=== PATIENT | female | born 1935 | race Hispanic/Latino ===

== ENCOUNTER 2018-10-05 13:14 | Emergency (ER) | payer MEDICARE ==
[~2018-10-05] VITALS: Ht 152.4 cm; Wt 77.1 kg
--- OUTSIDE RECORDS SUMMARY | 2018-10-05 13:18 | XMS REPORT | Clinical Summary ---
Author Author MARIA G [facility] Address Unknown Phone Unavailable Care Team Providers Care Trouble Lineman Name Role Phone Velia Weldon MD PCP Unavailable Allergies Comments Active Allergy Reactions Severity Noted Date Renal insufficiency Walt Inhibitors 08/16/2018 Hyponatremia [id number]-[id number] 08/16/2018 iazid Medications End Date Status Medication Sig Dispensed Refills Start Date Active levothyroxine (SYNTHROID, Take 88 mcg 0 LEVOTHROID) 50 MCG tablet by mouth 6 Every morning on an empty stomach TAKE 1 TABLET BY MOUTH EVERY DAY. 08/17/2019 Active atorvastatin (LIPITOR) 10 Take 1 tablet 0 MG tablet (10 mg total) 9 by mouth daily. 08/16/2019 Active cloNIDine HCl (CATAPRES) Take 1 tablet 0 0.1 MG tablet (0.1 mg 9 total) by mouth every 6 (six) hours as needed (for sbp greater than 160). 08/17/2019 Active clopidogrel (PLAVIX) 75 Take 1 tablet 30 tablet 0 mg tablet (75 mg total) 9 by mouth daily. 08/16/2019 Active ferrous sulfate 325 (65 Take 1 tablet 60 tablet 0 FE) MG tablet (325 mg 9 total) by mouth 2 (two) times daily. 08/16/2019 Active hydrALAZINE (APRESOLINE) Take 1 tablet 90 tablet 0 25 MG tablet (25 mg total) 9 by mouth every 8 (eight) hours. 08/16/2019 Active insulin lispro (HUMALOG) Inject 0-8 10 mL 0 100 unit/mL injection Units 9 subcutaneousl y as needed (High blood sugar). 08/16/2019 Active metoprolol (LOPRESSOR) 50 Take 1 tablet 60 tablet 0 MG tablet (50 mg total) 9 by mouth 2 (two) times daily. Active melatonin 5 mg Tab tablet Take 1 tablet 0 (5 mg total) 9 by mouth every night as needed. 08/16/2019 Active NIFEdipine (ADALAT CC) 30 Take 1 tablet 60 tablet 0 MG 24 hr tablet (30 mg total) 9 by mouth 2 (two) times daily. 08/16/2018 Discontinued amLODIPine (NORVASC) 5 MG TAKE 1 TABLET 0 tablet BY MOUTH ONCE 6 DAILY. 08/16/2018 Discontinued calcium carbonate Take by mouth 0 (OS-GORAN) 600 mg (1,500 daily . mg) Tab 08/16/2018 Discontinued cholecalciferol, vitamin Take 2,000 0 D3, 2,000 unit Tab Units by mouth daily . 07/13/2018 Discontinued diclofenac 1 % Gel Upper 0 extremities: 5 Apply 2 g of 1% gel to affected area 4 times daily (maximum: 8 g per joint per day). 08/16/2018 Discontinued glipiZIDE (GLUCOTROL) 5 Take 10 mg by 0 MG tablet mouth 2 (two) 5 times daily before meals . 08/16/2018 Discontinued hydrochlorothiazide TAKE 1 TABLET 0 (HYDRODIURIL) 25 MG BY MOUTH 6 tablet DAILY. 08/16/2018 Discontinued metFORMIN (GLUCOPHAGE) Take 500 mg 0 1000 MG tablet by mouth 2 5 (two) times daily with breakfast and dinner . 08/16/2018 Discontinued omega-3 fatty acids-fish Take 1,000 mg 0 oil 340-1,000 mg Cap per by mouth. capsule 07/13/2018 Discontinued omeprazole (PRILOSEC) 20 Take 20 mg by 0 MG capsule mouth. 6 08/16/2018 Discontinued valsartan (DIOVAN) 320 MG TAKE 1 TABLET 0 tablet BY MOUTH 5 EVERY DAY. 08/16/2018 Discontinued acetaminophen-codeine Take 1 tablet 0 (TYLENOL #3) 300-30 mg by mouth per tablet every 4 (four) hours as needed for Pain. 08/16/2018 Discontinued baclofen (LIORESAL) 10 MG Take 10 mg by 0 tablet mouth nightly . 08/16/2018 Discontinued metoprolol (TOPROL-XL) 25 Take 75 mg by 0 MG 24 hr tablet mouth 2 (two) times daily . 08/16/2018 Discontinued gabapentin (NEURONTIN) Take 200 mg 0 100 MG capsule by mouth 3 (three) times daily . 06/15/2018 traMADol (ULTRAM) 50 mg Take 1 tablet 20 tablet 0 tablet (50 mg total) 8 by mouth every 6 (six) hours as needed for up to 10 days. Max Daily Amount: 200 mg 06/12/2018 methylPREDNISolone follow 1 Package 0 (MEDROL DOSEPACK) 4 mg package 8 tablet directions. 07/26/2018 Discontinued omeprazole (PRILOSEC) 20 Take 20 mg by 0 MG capsule mouth daily. Active Problems Problem Noted Date Metabolic encephalopathy 08/03/2018 CVA (cerebral vascular accident) 07/22/2018 Hypertensive urgency 07/22/2018 Physical deconditioning 07/22/2018 Nausea and vomiting 07/22/2018 Impaired mobility and ADLs 07/18/2018 Impaired gait 07/18/2018 Essential hypertension 07/13/2018 Mixed hyperlipidemia 07/13/2018 Acute encephalopathy 07/13/2018 Acute ischemic stroke 07/12/2018 Encounters Care Team Description Date Type Specialty 08/07/2018 Travel Ladarius Leggett MD Rodriguez, Hector B., MD Essential hypertension (Primary Dx); Acute encephalopathy; Acute ischemic stroke (HCC); Metabolic encephalopathy; Mixed hyperlipidemia; Impaired mobility and ADLs; Impaired gait; Hypertensive urgency 08/03/2018 [facility] General Internal Medicine - Encounter 08/16/2018 Emre Cunningham MD Acute ischemic stroke (HCC); Essential hypertension; Impaired gait; Impaired mobility and ADLs; Mixed hyperlipidemia; Nausea and vomiting, intractability of vomiting not specified, unspecified vomiting type; Hemorrhagic stroke (HCC); Physical deconditioning; Diarrhea, unspecified type; Fall, initial encounter; Hematoma 07/25/2018 [facility] Physical Medicine and - Encounter Rehabilitation 08/03/2018 07/24/2018 Travel Eduardo Moctezuma MD Cerebrovascular accident (CVA), unspecified mechanism (HCC) 07/22/2018 [facility] General Internal Medicine - Encounter 07/25/2018 07/19/2018 Travel Emre Cunningham MD Acute ischemic stroke (HCC); Essential hypertension; Impaired gait; Impaired mobility and ADLs; Mixed hyperlipidemia; Hemorrhagic stroke (HCC) 07/18/2018 Hospital Physical Medicine and - Encounter Rehabilitation 07/22/2018 07/13/2018 Travel Albaro Tracey MD [place], MD Oleksandr Hinton, Ladarius Gill MD Cerebrovascular accident (CVA), unspecified mechanism (HCC) (Primary Dx); Somnolence; Essential hypertension; Hx of diabetes mellitus; Acute ischemic stroke (HCC); Acute encephalopathy; Mixed hyperlipidemia 07/12/2018 Hospital General Internal Medicine - Encounter 07/18/2018 07/12/2018 Orders Only General Internal Medicine 07/12/2018 Travel Kim Rios Acute midline low back pain with left-sided sciatica (Primary Dx); Pain in joint involving left pelvic region and thigh 06/05/2018 Emergency Emergency Medicine 06/05/2018 Travel after 10/04/2017 Social History Date Tobacco Use Types Packs/Day Years Used Never Smoker Smokeless Tobacco: Never Used Alcohol Use Drinks/Week oz/Week Comments No Sex Assigned at Date Recorded Not on file Industry Job Start Date Occupation Not on file Not on file Not on file Travel End Travel History Travel Start No recent travel history available. Last Filed Vital Signs Time Taken Vital Sign Reading 08/16/2018 12:00 PM [employer] Blood Pressure 138/63 08/16/2018 12:00 PM [employer] Pulse 71 08/16/2018 12:00 PM [employer] Temperature 35.7 C (96.3 F) 08/16/2018 12:00 PM [employer] Respiratory Rate 16 08/16/2018 12:00 PM [employer] Oxygen Saturation 98% 08/03/2018 5:29 PM [employer] Inhaled Oxygen 21% Concentration 08/15/2018 2:00 PM [employer] Weight 62.4 kg (137 lb 9.6 oz) 08/11/2018 6:00 AM [employer] Height 152.4 cm (5') 08/15/2018 2:00 PM [employer] Body Mass Index 26.87 Plan of Treatment Not on file Procedures Comments Procedure Name Priority Date/Time Associated Diagnosis RHYTHM STRIP - SCAN 09/05/2018 1:50 PM [employer] POCT-GLUCOSE METER Routine 08/16/2018 12:03 PM [employer] POCT-GLUCOSE METER Routine 08/16/2018 7:47 AM [employer] HEMOGLOBIN AND HEMATOCRIT Routine 08/16/2018 4:42 AM [employer] BASIC METABOLIC PANEL (7) Routine 08/16/2018 4:42 AM [employer] MAGNESIUM Routine 08/16/2018 4:42 AM [employer] POCT-GLUCOSE METER Routine 08/15/2018 8:46 PM [employer] POCT-GLUCOSE METER Routine 08/15/2018 5:39 PM [employer] POCT-GLUCOSE METER Routine 08/15/2018 11:47 AM [employer] POCT-GLUCOSE METER Routine 08/15/2018 7:50 AM [employer] HEMOGLOBIN AND HEMATOCRIT Routine 08/15/2018 4:45 AM [employer] BASIC METABOLIC PANEL (7) Routine 08/15/2018 4:45 AM [employer] MAGNESIUM Routine 08/15/2018 4:45 AM [employer] POCT-GLUCOSE METER Routine 08/14/2018 9:09 PM [employer] POCT-GLUCOSE METER Routine 08/14/2018 4:56 PM [employer] POCT-GLUCOSE METER Routine 08/14/2018 11:52 AM [employer] POCT-GLUCOSE METER Routine 08/14/2018 7:53 AM [employer] HEMOGLOBIN AND HEMATOCRIT Routine 08/14/2018 5:43 AM [employer] BASIC METABOLIC PANEL (7) Routine 08/14/2018 5:43 AM [employer] MAGNESIUM Routine 08/14/2018 5:43 AM [employer] POCT-GLUCOSE METER Routine 08/13/2018 9:15 PM [employer] POCT-GLUCOSE METER Routine 08/13/2018 5:13 PM [employer] POCT-GLUCOSE METER Routine 08/13/2018 12:50 PM [employer] POCT-GLUCOSE METER Routine 08/13/2018 7:12 AM [employer] HEMOGLOBIN AND HEMATOCRIT Routine 08/13/2018 5:47 AM [employer] BASIC METABOLIC PANEL (7) Routine 08/13/2018 5:47 AM [employer] MAGNESIUM Routine 08/13/2018 5:47 AM [employer] POCT-GLUCOSE METER Routine 08/12/2018 9:[address] [address] LOWER EXTREMITY Routine 08/12/2018 WITHOUT CONTRAST LEFT 5:55 PM [employer] POCT-GLUCOSE METER Routine 08/12/2018 5:08 PM [employer] POCT-GLUCOSE METER Routine 08/12/2018 12:27 PM [employer] POCT-GLUCOSE METER Routine 08/12/2018 7:16 AM [employer] BASIC METABOLIC PANEL (7) Routine 08/12/2018 3:35 AM [employer] MAGNESIUM Routine 08/12/2018 3:35 AM [employer] POCT-GLUCOSE METER Routine 08/11/2018 9:44 PM [employer] POCT-GLUCOSE METER Routine 08/11/2018 5:16 PM [employer] BASIC METABOLIC PANEL (7) STAT 08/11/2018 3:40 PM [employer] POCT-GLUCOSE METER Routine 08/11/2018 11:49 AM [employer] POCT-GLUCOSE METER Routine 08/11/2018 7:45 AM [employer] CBC W/PLT COUNT & AUTO Routine 08/11/2018 DIFFERENTIAL 4:01 AM [employer] BASIC METABOLIC PANEL (7) Routine 08/11/2018 4:01 AM [employer] CBC W/PLT COUNT & AUTO Routine 08/11/2018 DIFFERENTIAL 4:01 AM [employer] POCT-GLUCOSE METER Routine 08/10/2018 10:27 PM [employer] POCT-GLUCOSE METER Routine 08/10/2018 4:58 PM [employer] BASIC METABOLIC PANEL (7) STAT 08/10/2018 3:18 PM [employer] POCT-GLUCOSE METER Routine 08/10/2018 1:10 PM [employer] POCT-GLUCOSE METER Routine 08/10/2018 7:49 AM [employer] CBC W/PLT COUNT & AUTO Routine 08/10/2018 DIFFERENTIAL 4:06 AM [employer] MAGNESIUM Routine 08/10/2018 4:06 AM [employer] BASIC METABOLIC PANEL (7) Routine 08/10/2018 4:06 AM [employer] CBC W/PLT COUNT & AUTO Routine 08/10/2018 DIFFERENTIAL 4:06 AM [employer] POCT-GLUCOSE METER Routine 08/09/2018 9:26 PM [employer] BASIC METABOLIC PANEL (7) STAT 08/09/2018 5:29 PM [employer] POCT-GLUCOSE METER Routine 08/09/2018 4:57 PM [employer] POCT-GLUCOSE METER Routine 08/09/2018 12:37 PM [employer] POCT-GLUCOSE METER Routine 08/09/2018 7:44 AM [employer] CBC W/PLT COUNT & AUTO Routine 08/09/2018 DIFFERENTIAL 5:30 AM [employer] MAGNESIUM Routine 08/09/2018 5:30 AM [employer] BASIC METABOLIC PANEL (7) Routine 08/09/2018 5:30 AM [employer] CBC W/PLT COUNT & AUTO Routine 08/09/2018 DIFFERENTIAL 5:30 AM [employer] POCT-GLUCOSE METER Routine 08/08/2018 9:22 PM [employer] POCT-GLUCOSE METER Routine 08/08/2018 4:05 PM [employer] POCT-GLUCOSE METER Routine 08/08/2018 1:15 PM [employer] XR ESOPH SWALLOW FUNCTION Routine 08/08/2018 W/CINE VIDEO 9:50 AM [employer] POCT-GLUCOSE METER Routine 08/08/2018 5:46 AM [employer] BASIC METABOLIC PANEL (7) Routine 08/08/2018 5:22 AM [employer] MAGNESIUM Routine 08/08/2018 5:22 AM [employer] POCT-GLUCOSE METER Routine 08/07/2018 8:40 PM [employer] POCT-GLUCOSE METER Routine 08/07/2018 6:15 PM [employer] POCT-GLUCOSE METER Routine 08/07/2018 12:04 PM [employer] POCT-GLUCOSE METER Routine 08/07/2018 5:44 AM [employer] BASIC METABOLIC PANEL (7) Routine 08/07/2018 4:07 AM [employer] MAGNESIUM Routine 08/07/2018 4:07 AM [employer] POCT-GLUCOSE METER Routine 08/07/2018 4:01 AM [employer] POCT-GLUCOSE METER Routine 08/06/2018 6:33 PM [employer] POCT-GLUCOSE METER Routine 08/06/2018 1:53 PM [employer] POCT-GLUCOSE METER Routine 08/06/2018 6:51 AM [employer] CBC W/PLT COUNT & AUTO Routine 08/06/2018 DIFFERENTIAL 4:17 AM [employer] BASIC METABOLIC PANEL (7) Routine 08/06/2018 4:17 AM [employer] MAGNESIUM Routine 08/06/2018 4:17 AM [employer] COMPREHENSIVE METABOLIC Routine 08/06/2018 PANEL 4:17 AM [employer] CBC W/PLT COUNT & AUTO Routine 08/06/2018 DIFFERENTIAL 4:17 AM [employer] POCT-GLUCOSE METER Routine 08/06/2018 12:23 AM [employer] VENOUS DOPPLER ARM, LEFT Routine 08/05/2018 8:29 PM [employer] POCT-GLUCOSE METER Routine 08/05/2018 5:27 PM [employer] POCT-GLUCOSE METER Routine 08/05/2018 12:18 PM [employer] PT/APTT STAT 08/05/2018 12:05 PM [employer] HEMOGLOBIN AND HEMATOCRIT STAT 08/05/2018 12:05 PM [employer] BASIC METABOLIC PANEL (7) STAT 08/05/2018 12:05 PM [employer] POCT-GLUCOSE METER Routine 08/05/2018 6:52 AM [employer] CBC W/PLT COUNT & AUTO Routine 08/05/2018 DIFFERENTIAL 4:47 AM [employer] CBC W/PLT COUNT & AUTO Routine 08/05/2018 DIFFERENTIAL 4:47 AM [employer] BASIC METABOLIC PANEL (7) Routine 08/05/2018 4:47 AM [employer] MAGNESIUM Routine 08/05/2018 4:47 AM [employer] COMPREHENSIVE METABOLIC Routine 08/05/2018 PANEL 4:47 AM [employer] CBC W/PLT COUNT & AUTO Routine 08/05/2018 DIFFERENTIAL 3:45 AM [employer] CBC W/PLT COUNT & AUTO Routine 08/05/2018 DIFFERENTIAL 3:45 AM [employer] POCT-GLUCOSE METER Routine 08/05/2018 12:35 AM [employer] POCT-GLUCOSE METER Routine 08/04/2018 5:16 PM [employer] BASIC METABOLIC PANEL (7) STAT 08/04/2018 2:10 PM [employer] RHYTHM STRIP - SCAN 08/04/2018 1:10 PM [employer] POCT-GLUCOSE METER Routine 08/04/2018 12:53 PM [employer] XR ABDOMEN 1 VIEW Routine 08/04/2018 12:24 PM [employer] POCT-GLUCOSE METER Routine 08/04/2018 6:25 AM [employer] CBC W/PLT COUNT & AUTO Routine 08/04/2018 DIFFERENTIAL 4:08 AM [employer] COMPREHENSIVE METABOLIC Routine 08/04/2018 PANEL 4:08 AM [employer] CBC W/PLT COUNT & AUTO Routine 08/04/2018 DIFFERENTIAL 4:08 AM [employer] FERRITIN Routine 08/04/2018 4:08 AM [employer] IRON, TIBC, % SAT. Routine 08/04/2018 (WITHOUT FERRITIN) 4:08 AM [employer] CORTISOL Routine 08/04/2018 4:08 AM [employer] TSH/FREE T4 IF INDICATED Routine 08/04/2018 4:08 AM [employer] POCT-GLUCOSE METER Routine 08/04/2018 12:08 AM [employer] URINALYSIS W/ REFLEX Routine 08/03/2018 URINE CULTURE 9:08 PM [employer] BLOOD CULTURE Routine 08/03/2018 8:44 PM [employer] XR CHEST 1 VIEW STAT 08/03/2018 PORTABLE/BEDSIDE 8:24 PM [employer] POCT-HEMOGLOBIN Routine 08/03/2018 6:23 PM [employer] POCT-HEMATOCRIT Routine 08/03/2018 6:23 PM [employer] POCT-CALCIUM IONIZED Routine 08/03/2018 6:23 PM [employer] POCT-GLUCOSE Routine 08/03/2018 6:23 PM [employer] POCT-POTASSIUM Routine 08/03/2018 6:23 PM [employer] POCT-SODIUM Routine 08/03/2018 6:23 PM [employer] POCT-BLOOD GASES, Routine 08/03/2018 ARTERIAL 6:23 PM [employer] ECG 12-LEAD STAT 08/03/2018 6:00 PM [employer] CBC W/PLT COUNT & AUTO STAT 08/03/2018 DIFFERENTIAL 5:58 PM [employer] POCT-LACTIC ACID, VENOUS Routine 08/03/2018 5:58 PM [employer] TROPONIN I STAT 08/03/2018 5:58 PM [employer] AMMONIA STAT 08/03/2018 5:58 PM [employer] COMPREHENSIVE METABOLIC STAT 08/03/2018 PANEL 5:58 PM [employer] CBC W/PLT COUNT & AUTO STAT 08/03/2018 DIFFERENTIAL 5:58 PM [employer] SODIUM Routine 08/03/2018 5:58 PM [employer] BLOOD CULTURE STAT 08/03/2018 5:56 PM [employer] POCT-HEMOGLOBIN Routine 08/03/2018 5:51 PM [employer] POCT-HEMATOCRIT Routine 08/03/2018 5:51 PM [employer] POCT-CALCIUM IONIZED Routine 08/03/2018 5:51 PM [employer] POCT-GLUCOSE Routine 08/03/2018 5:51 PM [employer] POCT-POTASSIUM Routine 08/03/2018 5:51 PM [employer] POCT-SODIUM Routine 08/03/2018 5:51 PM [employer] POCT-BLOOD GASES, VENOUS Routine 08/03/2018 5:51 PM [employer] POCT-GLUCOSE METER Routine 08/03/2018 4:[address] [facility] [address] [employer] [address] LOWER EXTREMITY STAT 08/03/2018 WITHOUT CONTRAST LEFT 3:[address] [address] BRAIN/STROKE TEST STAT 08/03/2018 DESIGN 3:13 PM [employer] XR CHEST 1 VIEW BETHANY 08/03/2018 PORTABLE/BEDSIDE 1:42 PM [employer] MR BRAIN WITHOUT IV STAT 08/03/2018 CONTRAST 12:55 PM [employer] POCT-GLUCOSE METER Routine 08/03/2018 11:12 AM [employer] HEMOGLOBIN AND HEMATOCRIT STAT 08/03/2018 10:30 AM [employer] CBC W/PLT COUNT & AUTO Routine 08/03/2018 DIFFERENTIAL 6:11 AM [employer] POCT-GLUCOSE METER Routine 08/03/2018 6:11 AM [employer] BASIC METABOLIC PANEL (7) Routine 08/03/2018 6:11 AM [employer] CBC W/PLT COUNT & AUTO Routine 08/03/2018 DIFFERENTIAL 6:11 AM [employer] POCT-GLUCOSE METER Routine 08/02/2018 7:[address] [address] BRAIN WITH/WITHOUT IV STAT 08/02/2018 CONTRAST 6:51 PM [employer] POCT-GLUCOSE METER Routine 08/02/2018 5:14 PM [employer] SODIUM, RANDOM URINE Routine 08/02/2018 12:03 PM [employer] TROPONIN I STAT 08/02/2018 11:56 AM [employer] OSMOLALITY, SERUM Routine 08/02/2018 11:56 AM [employer] URINALYSIS W/ MICROSCOPIC Routine 08/02/2018 11:51 AM [employer] OSMOLALITY, URINE Routine 08/02/2018 11:51 AM [employer] ECG 12-LEAD Routine 08/02/2018 11:34 AM [employer] POCT-GLUCOSE METER Routine 08/02/2018 11:11 AM [employer] CBC W/PLT COUNT & AUTO Routine 08/02/2018 DIFFERENTIAL 6:14 AM [employer] BASIC METABOLIC PANEL (7) Routine 08/02/2018 6:14 AM [employer] CBC W/PLT COUNT & AUTO Routine 08/02/2018 DIFFERENTIAL 6:14 AM [employer] POCT-GLUCOSE METER Routine 08/02/2018 6:12 AM [employer] POCT-GLUCOSE METER Routine 08/01/2018 9:01 PM [employer] POCT-GLUCOSE METER Routine 08/01/2018 4:[address] [facility] [address] [address] LOWER EXTREMITY Routine 08/01/2018 WITHOUT CONTRAST LEFT 2:22 PM [employer] POCT-GLUCOSE METER Routine 08/01/2018 11:20 AM [employer] POCT-GLUCOSE METER Routine 08/01/2018 5:17 AM [employer] CBC W/PLT COUNT & AUTO Routine 08/01/2018 DIFFERENTIAL 4:44 AM [employer] BASIC METABOLIC PANEL (7) Routine 08/01/2018 4:44 AM [employer] CBC W/PLT COUNT & AUTO Routine 08/01/2018 DIFFERENTIAL 4:44 AM [employer] POCT-GLUCOSE METER Routine 07/31/2018 9:06 PM [employer] XR HIP LEFT 2 VIEW Routine 07/31/2018 7:05 PM [employer] POCT-GLUCOSE METER Routine 07/31/2018 4:16 PM [employer] POCT-GLUCOSE METER Routine 07/31/2018 11:14 AM [employer] XR HIP LEFT 2 VIEW Routine 07/31/2018 8:05 AM [employer] BASIC METABOLIC PANEL (7) Routine 07/31/2018 5:18 AM [employer] POCT-GLUCOSE METER Routine 07/31/2018 5:08 AM [employer] POCT-GLUCOSE METER Routine 07/30/2018 8:55 PM [employer] POCT-GLUCOSE METER Routine 07/30/2018 5:06 PM [employer] C. DIFFICILE GDH TOXIN Routine 07/30/2018 12:32 PM [employer] POCT-GLUCOSE METER Routine 07/30/2018 12:05 PM [employer] POCT-GLUCOSE METER Routine 07/30/2018 6:51 AM [employer] POCT-GLUCOSE METER Routine 07/29/2018 9:06 PM [employer] POCT-GLUCOSE METER Routine 07/29/2018 6:44 PM [employer] POCT-GLUCOSE METER Routine 07/29/2018 5:05 PM [employer] POCT-GLUCOSE METER Routine 07/29/2018 10:56 AM [employer] POCT-GLUCOSE METER Routine 07/29/2018 7:26 AM [employer] POCT-GLUCOSE METER Routine 07/29/2018 7:02 AM [employer] POCT-GLUCOSE METER Routine 07/29/2018 6:40 AM [employer] POCT-GLUCOSE METER Routine 07/28/2018 9:48 PM [employer] POCT-GLUCOSE METER Routine 07/28/2018 4:10 PM [employer] POCT-GLUCOSE METER Routine 07/28/2018 11:07 AM [employer] POCT-GLUCOSE METER Routine 07/28/2018 5:08 AM [employer] POCT-GLUCOSE METER Routine 07/27/2018 8:17 PM [employer] POCT-GLUCOSE METER Routine 07/27/2018 4:53 PM [employer] POCT-GLUCOSE METER Routine 07/27/2018 11:29 AM [employer] POCT-GLUCOSE METER Routine 07/27/2018 6:49 AM [employer] POCT-GLUCOSE METER Routine 07/26/2018 8:01 PM [employer] POCT-GLUCOSE METER Routine 07/26/2018 4:07 PM [employer] POCT-GLUCOSE METER Routine 07/26/2018 11:12 AM [employer] CBC W/PLT COUNT & AUTO Routine 07/26/2018 DIFFERENTIAL 9:16 AM [employer] CBC W/PLT COUNT & AUTO Routine 07/26/2018 DIFFERENTIAL 9:16 AM [employer] COMPREHENSIVE METABOLIC Routine 07/26/2018 PANEL 9:16 AM [employer] POCT-GLUCOSE METER Routine 07/26/2018 6:46 AM [employer] POCT-GLUCOSE METER Routine 07/25/2018 7:55 PM [employer] POCT-GLUCOSE METER Routine 07/25/2018 5:02 PM [employer] POCT-GLUCOSE METER Routine 07/25/2018 12:00 PM [employer] POCT-GLUCOSE METER Routine 07/25/2018 7:44 AM [employer] CBC W/PLT COUNT & AUTO Routine 07/25/2018 DIFFERENTIAL 4:43 AM [employer] CBC W/PLT COUNT & AUTO Routine 07/25/2018 DIFFERENTIAL 4:43 AM [employer] PHOSPHORUS Routine 07/25/2018 4:43 AM [employer] MAGNESIUM Routine 07/25/2018 4:43 AM [employer] BASIC METABOLIC PANEL (7) Routine 07/25/2018 4:43 AM [employer] POCT-GLUCOSE METER Routine 07/24/2018 8:29 PM [employer] XR SPINE CERVICAL 2 OR 3 Routine 07/24/2018 VIEWS 5:50 PM [employer] POCT-GLUCOSE METER Routine 07/24/2018 4:39 PM [employer] RHYTHM STRIP - SCAN 07/24/2018 1:50 PM [employer] POCT-GLUCOSE METER Routine 07/24/2018 11:39 AM [employer] POCT-GLUCOSE METER Routine 07/24/2018 8:40 AM [employer] CBC W/PLT COUNT & AUTO Routine 07/24/2018 DIFFERENTIAL 3:56 AM [employer] CBC W/PLT COUNT & AUTO Routine 07/24/2018 DIFFERENTIAL 3:56 AM [employer] PHOSPHORUS Routine 07/24/2018 3:56 AM [employer] MAGNESIUM Routine 07/24/2018 3:56 AM [employer] BASIC METABOLIC PANEL (7) Routine 07/24/2018 3:56 AM [employer] POCT-GLUCOSE METER Routine 07/23/2018 8:00 PM [employer] POCT-GLUCOSE METER Routine 07/23/2018 5:52 PM [employer] POCT-GLUCOSE METER Routine 07/23/2018 12:39 PM [employer] POCT-GLUCOSE METER Routine 07/23/2018 8:[address] [address] BRAIN WITHOUT IV Routine 07/23/2018 CONTRAST 6:30 AM [employer] CBC W/PLT COUNT & AUTO Routine 07/23/2018 DIFFERENTIAL 4:36 AM [employer]EMENT [employer] DUMPER CBC W/PLT COUNT & AUTO Routine 07/23/2018 DIFFERENTIAL 4:36 AM CEMENT [employer] DUMPER PHOSPHORUS Routine 07/23/2018 4:36 AM CEMENT [employer] MAGNESIUM Routine 07/23/2018 4:36 AM CEMENT [employer] DUMPER BASIC METABOLIC PANEL (7) Routine 07/23/2018 4:36 AM CEMENT [employer] DUMPER HEMOGLOBIN A1C Routine 07/23/2018 4:36 AM CEMENT [employer] DUMP[employer] POCT-GLUCOSE METER Routine 07/22/2018 9:10 PM CEMENT [employer] DUMPER POCT-GLUCOSE METER Routine 07/22/2018 6:19 PM CEMENT [employer] DUMPER POCT-GLUCOSE METER Routine 07/22/2018 12:05 PM CEMENT CAR DUMPER MR BRAIN WITHOUT IV STAT 07/22/2018 CONTRAST 11:50 AM CEMENT [employer] DUMPER POCT-GLUCOSE METER Routine 07/22/2018 8:13 AM CEMENT [employer] DUMPER POCT-GLUCOSE METER Routine 07/22/2018 6:01 AM CEMENT [employer] DUMPER POCT-GLUCOSE METER Routine 07/21/2018 9:54 PM CEMENT [employer] DUMPER POCT-GLUCOSE METER Routine 07/21/2018 5:48 PM CEMENT [employer] DUMPER POCT-GLUCOSE METER Routine 07/21/2018 12:06 PM CEMENT CAR DUMPER POCT-GLUCOSE METER Routine 07/21/2018 6:10 AM CEMENT CAR DUMPER POCT-GLUCOSE METER Routine 07/20/2018 8:29 PM CEMENT [employer] DUMPER POCT-GLUCOSE METER Routine 07/20/2018 5:07 PM CEMENT CAR DUMPER POCT-GLUCOSE METER Routine 07/20/2018 12:11 PM CEMENT [employer] DUMPER POCT-GLUCOSE METER Routine 07/20/2018 6:22 AM CEMENT CAR DUMPER POCT-GLUCOSE METER Routine 07/19/2018 9:09 PM CEMENT [employer] DUMPER POCT-GLUCOSE METER Routine 07/19/2018 4:08 PM CEMENT CAR DUMPER POCT-GLUCOSE METER Routine 07/19/2018 11:29 AM CEMENT CAR DUMPER POCT-GLUCOSE METER Routine 07/19/2018 5:42 AM CEMENT CAR DUMPER CBC W/PLT COUNT & AUTO Routine 07/19/2018 DIFFERENTIAL 3:28 AM CEMENT CAR DUMPER CBC W/PLT COUNT & AUTO Routine 07/19/2018 DIFFERENTIAL 3:28 AM CEMENT CAR DUMPER COMPREHENSIVE METABOLIC Routine 07/19/2018 PANEL 3:28 AM CEMENT CAR DUMPER POCT-GLUCOSE METER Routine 07/18/2018 11:21 PM CEMENT CAR DUMPER POCT-GLUCOSE METER Routine 07/18/2018 7:58 PM CEMENT CAR DUMPER POCT-GLUCOSE METER Routine 07/18/2018 5:19 PM CEMENT CAR DUMPER POCT-GLUCOSE METER Routine 07/18/2018 4:49 PM CEMENT CAR DUMPER POCT-GLUCOSE METER Routine 07/18/2018 11:21 AM CEMENT CAR DUMPER POCT-GLUCOSE METER Routine 07/18/2018 8:15 AM CEMENT CAR DUMPER CBC W/PLT COUNT & AUTO Routine 07/18/2018 DIFFERENTIAL 5:11 AM CEMENT CAR DUMPER CBC W/PLT COUNT & AUTO Routine 07/18/2018 DIFFERENTIAL 5:11 AM CEMENT CAR DUMPER BASIC METABOLIC PANEL (7) Routine 07/18/2018 5:11 AM CEMENT CAR DUMPER POCT-GLUCOSE METER Routine 07/17/2018 9:22 PM CEMENT CAR DUMPER POCT-GLUCOSE METER Routine 07/17/2018 5:11 PM CEMENT CAR DUMPER POCT-GLUCOSE METER Routine 07/17/2018 12:17 PM CEMENT CAR DUMPER POCT-GLUCOSE METER Routine 07/17/2018 8:10 AM CEMENT CAR DUMPER CBC W/PLT COUNT & AUTO Routine 07/17/2018 DIFFERENTIAL 4:28 AM CEMENT CAR DUMPER CBC W/PLT COUNT & AUTO Routine 07/17/2018 DIFFERENTIAL 4:28 AM CEMENT CAR DUMPER BASIC METABOLIC PANEL (7) Routine 07/17/2018 4:28 AM CEMENT CAR DUMPER POCT-GLUCOSE METER Routine 07/16/2018 9:00 PM CEMENT CAR DUMPER POCT-GLUCOSE METER Routine 07/16/2018 5:17 PM CEMENT CAR DUMPER POCT-GLUCOSE METER Routine 07/16/2018 11:46 AM CEMENT CAR DUMPER POCT-GLUCOSE METER Routine 07/16/2018 8:17 AM CEMENT CAR DUMPER CBC W/PLT COUNT & AUTO Routine 07/16/2018 DIFFERENTIAL 5:10 AM CEMENT CAR DUMPER CBC W/PLT COUNT & AUTO Routine 07/16/2018 DIFFERENTIAL 5:10 AM CEMENT CAR DUMPER POCT-GLUCOSE METER Routine 07/15/2018 9:53 PM CEMENT CAR DUMPER POCT-GLUCOSE METER Routine 07/15/2018 4:09 PM CEMENT CAR DUMPER POCT-GLUCOSE METER Routine 07/15/2018 11:22 AM CEMENT CAR DUMPER POCT-GLUCOSE METER Routine 07/15/2018 8:15 AM CEMENT CAR DUMPER CBC W/PLT COUNT & AUTO Routine 07/15/2018 DIFFERENTIAL 4:06 AM CEMENT CAR DUMPER BASIC METABOLIC PANEL (7) Routine 07/15/2018 4:06 AM CEMENT CAR DUMPER CBC W/PLT COUNT & AUTO Routine 07/15/2018 DIFFERENTIAL 4:06 AM CEMENT CAR DUMPER POCT-GLUCOSE METER Routine 07/14/2018 10:12 PM CEMENT CAR DUMPER FOLATE, SERUM Routine 07/14/2018 3:57 PM CEMENT CAR DUMPER POCT-GLUCOSE METER Routine 07/14/2018 2:39 PM CEMENT CAR DUMPER XR RIBS LEFT UNILATERAL STAT 07/14/2018 MIN 2 VIEWS 1:44 PM CEMENT CAR DUMPER POCT-GLUCOSE METER Routine 07/14/2018 12:09 PM CEMENT CAR DUMPER POCT-GLUCOSE METER Routine 07/14/2018 8:06 AM CEMENT CAR DUMPER SODIUM Routine 07/14/2018 5:56 AM CEMENT CAR DUMPER POCT-GLUCOSE METER Routine 07/14/2018 5:44 AM CEMENT CAR DUMPER SODIUM Routine 07/14/2018 12:18 AM CEMENT CAR DUMPER POCT-GLUCOSE METER Routine 07/13/2018 10:29 PM CEMENT CAR DUMPER SODIUM Routine 07/13/2018 7:05 PM CEMENT CAR DUMPER POCT-GLUCOSE METER Routine 07/13/2018 5:40 PM CEMENT CAR DUMPER TROPONIN I Routine 07/13/2018 4:35 PM CEMENT CAR DUMPER ECHOCARDIOGRAM REPORT - 07/13/2018 SCAN 3:50 PM CEMENT CAR DUMPER SODIUM Routine 07/13/2018 1:11 PM CEMENT CAR DUMPER ECHO W CONTRAST & DOPPLER STAT 07/13/2018 12:19 PM CEMENT CAR DUMPER CBC W/PLT COUNT & AUTO Routine 07/13/2018 DIFFERENTIAL 5:35 AM CEMENT CAR DUMPER VITAMIN B12 Routine 07/13/2018 5:35 AM CEMENT CAR DUMPER TSH/FREE T4 IF INDICATED Routine 07/13/2018 5:35 AM CEMENT CAR DUMPER TROPONIN I Routine 07/13/2018 5:35 AM CEMENT CAR DUMPER HEMOGLOBIN A1C Routine 07/13/2018 5:35 AM CEMENT CAR DUMPER CBC W/PLT COUNT & AUTO Routine 07/13/2018 DIFFERENTIAL 5:35 AM CEMENT CAR DUMPER LIPID PANEL Routine 07/13/2018 5:35 AM CEMENT CAR DUMPER BASIC METABOLIC PANEL (7) Routine 07/13/2018 5:35 AM CEMENT CAR DUMPER POCT-GLUCOSE METER Routine 07/13/2018 4:55 AM CEMENT CAR DUMPER MR BRAIN WITHOUT IV STAT 07/13/2018 CONTRAST 2:21 AM C[employer] DU[address] CT SPINE CERVICAL WITHOUT STAT 07/13/2018 IV CONTRAST 1:45 AM CEMENT CAR DUMPER ECG 12-LEAD Routine 07/12/2018 10:42 PM CEMENT CAR DUMPER Procedure Note - Interface, External Ris In - 07/12/2018 11:24 PM CEMENT CAR DUMPER Ventricula r Rate 66 BPM Atrial Rate 66 BPM P-R Interval 196 ms QRS Duration 68 ms Q-T Interval 388 ms QTC Calculatio n(Bazett) 406 ms P [place] 58 degrees R [place] 29 degrees T [place] 85 degrees Normal sinus rhythm Low voltage QRS Septal infarct , age undetermin ed Abnormal ECG When compared with ECG of 7 15:37, Septal infarct is now Present ECG 12-LEAD STAT 07/12/2018 10:42 [address] CT CEREBRAL PERFUSION STAT 07/12/2018 ANALYSIS 10:24 PM C[employer] CAR DU[address]ER CT/CTA CAROTID STAT 07/12/2018 10:24 PM CEMENT CAR DUMPER CT/CTA BRAIN STAT 07/12/2018 10:24 PM CEMENT CAR DUMPER CBC W/PLT COUNT & AUTO STAT 07/12/2018 DIFFERENTIAL 9:04 PM CEMENT CAR DUMPER TROPONIN I STAT 07/12/2018 9:04 PM CEMENT CAR DUMPER BASIC METABOLIC PANEL (7) STAT 07/12/2018 9:04 PM CEMENT CAR DUMPER CBC W/PLT COUNT & AUTO STAT 07/12/2018 DIFFERENTIAL 9:04 PM CEMENT CAR DUMPER PT/APTT STAT 07/12/2018 9:04 PM CEMENT CAR DUMPER POCT-GLUCOSE METER Routine 07/12/2018 8:53 PM CEMENT CAR DUMPER XR CHEST 1 VIEW STAT 07/12/2018 PORTABLE/BEDSIDE 8:49 PM CEMENT CAR DUMPER CRITICAL CARE Routine 07/12/2018 8:23 PM [address] CT BRAIN/STROKE TEST STAT 07/12/2018 DESIGN 8:18 PM CEMENT CAR DUMPER XR SPINE LUMBAR COMPLETE STAT 06/05/2018 MIN 4 VIEWS 12:41 PM CDT after 10/04/2017 Results * RHYTHM STRIP - SCAN (09/05/2018 1:50 PM CEMENT CAR DUMPER) Only the most recent of 3 results within the time period is included. Narrative Performed At * POC-Glucose meter (08/16/2018 12:03 PM CEMENT CAR DUMPER) Only the most recent of 145 results within the time period is included. POC-Glucose Meter 206 (H)Comment: TESTED AT 70 - 110 mg/dL [address] [address] Specimen Blood Performing Organization Address [facility] Phone Number [address] [address] [facility] * Hemoglobin and hematocrit (08/16/2018 4:42 AM CEMENT CAR DUMPER) Only the most recent of 6 results within the time period is included. Hemoglobin 9.2 (L) 11.2 - 15.7 GM/DL [facility] Hematocrit 28.8 (L) 34.1 - 44.9 % [facility] Specimen Blood Performing Organization Address [facility] Phone Number [address] [phone] [facility] * Magnesium (08/16/2018 4:42 AM CEMENT CAR DUMPER) Only the most recent of 14 results within the time period is included. Magnesium 1.8Comment: Specimen slightly 1.6 - 2.6 mg/dL [facility] hemolyzed [facility] Specimen Blood Performing Organization Address [facility] Phone Number [address] [address] [facility] * Basic Metabolic Panel (08/16/2018 4:42 AM CEMENT CAR DUMPER) Only the most recent of 29 results within the time period is included. Sodium 136 136 - 145 meq/L [facility] Potassium 4.4Comment: Specimen slightly 3.5 - 5.1 meq/L [facility] hemolyzed [facility] Chloride 105 98 - 107 meq/L [facility] CO2 24 22 - 29 meq/L [facility] BUN 12 7 - 21 mg/dL [facility] Creatinine 0.72Comment: Specimen slightly 0.57 - 1.25 mg/dL [facility] hemolyzed [facility] Glucose 125 (H) 70 - 105 mg/dL [facility] Calcium 9.3 8.4 - 10.2 mg/dL [facility] EGFR 78Comment: ESTIMATED GFR IS mL/min/1.73 sq m [facility] NOT ACCURATE CREATININE [facility] CLEARANCE IN PREDICTING GLOMERULAR FILTRATION RATE. ESTIMATED GFR IS NOT APPLICABLE FOR DIALYSIS PATIENTS. Specimen Blood Performing Organization Address City/State/Zipcode Phone Number [facility] [address] [place] [address] [facility] * CT lower extremity without IV contrast left (08/12/2018 5:55 PM CEMENT CAR DUMPER) Only the most recent of 3 results within the time period is included. Narrative Performed At FINAL REPORT [employer] INDICATION: 83-year-old female with left hip pain after fall. COMPARISON: August 03, 2018 TECHNIQUE: CT of the left lower extremity (hip) was performed WITHOUT contrast. The exam was performed according to our department dose-optimization protocol, which includes automated exposure control, adjustments of mA and kV according to patient size. Iterative reconstructions are also sometimes employed. FINDINGS: There is no left hip fracture. Hematoma in the subcutaneous fat of the left hip is again demonstrated. It measures 5 x 5 cm axial plane slightly decreased in size from 6 x 6 cm since August 03, 2018. Surrounding edema of the subcutaneous fat has also slightly decreased. Muscles and tendons of the left hip are grossly intact. No left hip joint effusion and no bursal collection. There is joint space loss in the left hip without femoral head osteophyte formation or acetabular subchondral cyst formation. Mild degenerative change of the left sacroiliac joint and pubic symphysis again demonstrated. There is moderate to severe disc space, endplate, and facet degenerative change at L5-S1 and L4-5. Soft tissue contents of the pelvis are unremarkable. IMPRESSION: Slight interval decrease in size of hematoma in the subcutaneous fat of the left hip. Signed: Jb Palomo MD Report Verified Date/Time:08/13/2018 09:00:10 Reading Location: [facility] C013X Ortho Consult Reading Room Procedure Note Interface, External Ris In - 08/13/2018 9:02 AM CEMENT CAR DUMPER FINAL REPORT INDICATION: 83-year-old female with left hip pain after fall. COMPARISON: August 03, 2018 TECHNIQUE: CT of the left lower extremity (hip) was performed WITHOUT contrast. The exam was performed according to our department dose-optimization protocol, which includes automated exposure control, adjustments of mA and kV according to patient size. Iterative reconstructions are also sometimes employed. FINDINGS: There is no left hip fracture. Hematoma in the subcutaneous fat of the left hip is again demonstrated. It measures 5 x 5 cm axial plane slightly decreased in size from 6 x 6 cm since August 03, 2018. Surrounding edema of the subcutaneous fat has also slightly decreased. Muscles and tendons of the left hip are grossly intact. No left hip joint effusion and no bursal collection. There is joint space loss in the left hip without femoral head osteophyte formation or acetabular subchondral cyst formation. Mild degenerative change of the left sacroiliac joint and pubic symphysis again demonstrated. There is moderate to severe disc space, endplate, and facet degenerative change at L5-S1 and L4-5. Soft tissue contents of the pelvis are unremarkable. IMPRESSION: Slight interval decrease in size of hematoma in the subcutaneous fat of the left hip. Signed: Jb Palomo MD Report Verified Date/Time: 08/13/2018 09:00:10 Reading Location: [facility] B1 C013X Ortho Consult Reading Room Performing Organization Address City/State/Zipcode Phone Number [facility] * CBC with platelet count + automated diff (08/11/2018 4:01 AM CEMENT CAR DUMPER) Only the most recent of 22 results within the time period is included. WBC 7.1 3.5 - 10.5 K/L [facility] RBC 2.61 (L) 3.93 - 5.22 M/L [facility] Hemoglobin 8.1 (L) 11.2 - 15.7 GM/DL [facility] Hematocrit 25.2 (L) 34.1 - 44.9 % [facility] MCV 96.6 (H) 79.4 - 94.8 fL [facility] MCH 31.0 25.6 - 32.2 pg [facility] MCHC 32.1 (L) 32.2 - 35.5 GM/DL [facility] RDW 13.8 11.7 - 14.4 % [facility] Platelets 330 150 - 450 K/CU MM [facility] MPV 8.9 (L) 9.4 - 12.3 fL [facility] nRBC 0 0 - 0 /100 WBC [facility] % Neutros 67 % [facility] % Lymphs 19 % [facility] % Monos 7 % [facility] % Eos 5 % [facility] % Baso 1 % [facility] # Neutros 4.77 1.56 - 6.13 K/L [facility] # Lymphs 1.34 1.18 - 3.74 K/L [facility] # Monos 0.49 (H) 0.24 - 0.36 K/L [facility] # Eos 0.33 0.04 - 0.36 K/L [facility] # Baso 0.06 0.01 - 0.08 K/L [facility] Immature 2 (H) 0 - 1 % [facility] Granulocytes-Relative [facility] Specimen Blood Performing Organization Address City/State/Zipcode Phone Number [facility] [address] [place] [address] [facility] * FL esoph swallow funct with cine video (08/08/2018 9:50 AM CEMENT CAR DUMPER) Narrative Performed At FINAL REPORT [facility] Modified barium swallow with speech pathology History: dysphagia Technique: Modified barium swallow was performed in conjunction with speech pathology. Examination utilized various textures of barium. Fluoroscopic observation was performed during swallowing. Total fluoroscopy time: 1.3 minutes Total number of films: 1 IMPRESSION: There is no evidence of laryngeal penetration or aspiration. Please refer to the speech pathology report for further details. Signed: Rafael Solomon MD Report Verified Date/Time:08/08/2018 09:53:06 Reading Location: [address] Ortho Consult Reading Room Procedure Note Interface, External Ris In - 08/08/2018 9:55 AM CEMENT CAR DUMPER FINAL REPORT Modified barium swallow with speech pathology History: dysphagia Technique: Modified barium swallow was performed in conjunction with speech pathology. Examination utilized various textures of barium. Fluoroscopic observation was performed during swallowing. Total fluoroscopy time: 1.3 minutes Total number of films: 1 IMPRESSION: There is no evidence of laryngeal penetration or aspiration. Please refer to the speech pathology report for further details. Signed: Rafael Solomon MD Report Verified Date/Time: 08/08/2018 09:53:06 Reading Location: [facility] C013X Ortho Consult Reading Room Performing Organization Address City/State/Zipcode Phone Number [facility] * Comprehensive metabolic panel (08/06/2018 4:17 AM CEMENT CAR DUMPER) Only the most recent of 6 results within the time period is included. Protein, Total 5.1 (L) 6.0 - 8.3 gm/dL [facility] Albumin 2.7 (L) 3.5 - 5.0 g/dL [facility] Alkaline Phosphatase 66 40 - 150 U/L [facility] Total Bilirubin 0.4 0.2 - 1.2 mg/dL [facility] Sodium 136 136 - 145 meq/L [facility] Potassium 4.3 3.5 - 5.1 meq/L [facility] Chloride 106 98 - 107 meq/L [facility] CO2 26 22 - 29 meq/L [facility] BUN 22 (H) 7 - 21 mg/dL [facility] Creatinine 0.76 0.57 - 1.25 mg/dL [facility] Glucose 188 (H) 70 - 105 mg/dL [facility] Calcium 8.8 8.4 - 10.2 mg/dL [facility] AST 16 5 - 34 U/L [facility] ALT 11 6 - 55 U/L [facility] EGFR 73Comment: ESTIMATED GFR IS mL/min/1.73 sq m [facility] NOT ACCURATE CREATININE [facility] CLEARANCE IN PREDICTING GLOMERULAR FILTRATION RATE. ESTIMATED GFR IS NOT APPLICABLE FOR DIALYSIS PATIENTS. Specimen Blood - Arm, Right Performing Organization Address City/State/Zipcode Phone Number [facility] [address] [place] [address] [facility] * Venous doppler arm, left (08/05/2018 8:29 PM CEMENT CAR DUMPER) Ejection Fraction [facility] Impressions Performed At Left Impression [facility] 1. There is no deep venous obstruction in the jugular, subclavian, axillary, [facility] brachial, radial or ulnar veins. 2. There is no superficial venous obstruction in the cephalic or basilic veins. Conclusions Summary Venous duplex imaging and compression of the left upper extremity was performed. The veins were adequately visualized. The left venous system was patent and compressible with no evidence of thrombus. Signature Velocities are measured in cm/s ; Diameters are measured in cm Narrative Performed At [facility] - Upper Extremities Veins [facility] Demographics [facility] Patient Name JESSICA FAULKNER Date of Study08/05/2018 H [id number] Visit Number [id number] Female Accession Number [id number] of Birth1935 [facility] [place] AMANDEEP Bolaños SonographMisty Werner RVTInterpreting Agueda Wood, Clint icianMD Procedure Type of Study: Veins: Upper Extremities Veins, VENOUS DOPPLER ARM, LEFT. Indications for Study:Rule out DVT and Left arm swelling . Patient Status:Routine. Study Location:Portable. Technical Quality:Adequate visualization. Risk Factors History of Disease + +----+ + !Diagnosis !Date!Comments ! + +----+ + !History/Risk!!Diabetes, Hypertension, hyperlipidemia and history! !Factors:!!of stroke ! + +----+ + Procedure Note Interface, External Ris In - 08/06/2018 1:11 PM CEMENT CAR DUMPER [facility] - Upper Extremities Veins Demographics Patient Name JESSICA FAULKNER Date of Study 08/05/2018 Lucia Age 83 Visit Number [id number] Gender Female Accession Number [id number] Date of 1935 Referring Pardeep Leonard Room Number 7305 Physician Anita, MUCK FARMER [employer]ap Payroll Consultant Carina Werner RVT Interpreting Agueda Wood, Physician Procedure Type of Study: Veins: Upper Extremities Veins, VENOUS DOPPLER ARM, LEFT. Indications for Study:Rule out DVT and Left arm swelling . Patient Status:Routine. Study Location:Portable. Technical Quality:Adequate visualization. Risk Factors History of Disease + +----+ + !Diagnosis !Date!Comments ! + +----+ + !History/Risk ! !Diabetes, Hypertension, hyperlipidemia and history! !Factors: ! !of stroke ! + +----+ + Impressions Left Impression 1. There is no deep venous obstruction in the jugular, subclavian, axillary, brachial, radial or ulnar veins. 2. There is no superficial venous obstruction in the cephalic or basilic veins. Conclusions Summary Venous duplex imaging and compression of the left upper extremity was performed. The veins were adequately visualized. The left venous system was patent and compressible with no evidence of thrombus. Signature Velocities are measured in cm/s ; Diameters are measured in cm Performing Organization Address City/[facility] Phone Number [facility] * PT/aPTT (08/05/2018 12:05 PM CEMENT CAR DUMPER) Only the most recent of 2 results within the time period is included. Protime 14.0 11.7 - 14.7 seconds [facility] INR 1.1 <=5.9 [facility] PTT 55.8 (H) 22.5 - 36.0 seconds [facility] Specimen Blood Narrative Performed At RECOMMENDED COUMADIN/WARFARIN INR THERAPY RANGES [facility] STANDARD DOSE: 2.0 - 3.0 Includes: PROPHYLAXIS for venous thrombosis, [facility] systemic embolization; TREATMENT for venous thrombosis and/or pulmonary embolus. HIGH RISK: Target INR is 2.5-3.5 for patients with mechanical heart valves. Performing Organization Address City/[facility]/Zipcode Phone Number [facility] [address] [place] [address] [facility] * XR abdomen / KUB 1 view (08/04/2018 12:24 PM CEMENT CAR DUMPER) Narrative Performed At FINAL REPORT [facility] Abdomen one view Comparison: None. Reason for exam:Corpak Placement Findings: Tip of Corpak is slightly coiled in the stomach, the tip points cephalad and projects over the gastric body. Bowel gas pattern is nonspecific, no free air is identified. Signed: Latrice Antoine MD Report Verified Date/Time:08/04/2018 12:40:57 Reading Location: [facility] Radiology Reading Room Procedure Note Interface, External Ris In - 08/04/2018 12:43 PM CEMENT CAR DU[employer]ER FINAL REPORT Abdomen one view Comparison: None. Reason for exam: Corpak Placement Findings: Tip of Corpak is slightly coiled in the stomach, the tip points cephalad and projects over the gastric body. Bowel gas pattern is nonspecific, no free air is identified. Signed: Latrice Antoine MD Report Verified Date/Time: 08/04/2018 12:40:57 Reading Location: [facility] Radiology Reading Room Performing Organization Address City/[facility] Phone Number [facility] * Cortisol (08/04/2018 4:08 AM CEMENT CAR DUMPER) Cortisol, Total 10.0 3.7 - 19.4 ug/dL [facility] Specimen Blood - Arm, Left Performing Organization Address [facility] Phone Number [place] [phone] * TSH/Free T4 If Indicated (08/04/2018 4:08 AM CEMENT [employer]ER) Only the most recent of 2 results within the time period is included. TSH 0.56 0.35 - 4.94 uIU/mL [facility] Specimen Blood - Arm, Left Performing Organization Address [facility] Phone Number [address] [address] [facility] * Iron, TIBC, % sat. (without ferritin) (08/04/2018 4:08 AM CEMENT CAR [employer]ER) Iron 14.0 (L) 40.0 - 160.0 ug/dL [facility] TIBC 230 (L) 250 - 450 ug/dL [facility] Iron % Saturation 6 (L) 20 - 55 % [facility] Specimen Blood - Arm, Left Performing Organization Address City/[facility] Phone Number [address] [address] [phone] [place] [address] * Ferritin (08/04/2018 4:08 AM CEMENT CAR DUMPER) Ferritin 219 5 - 275 ng/mL [facility] Specimen Blood - Arm, Left Performing Organization Address [facility] Phone Number [place] [phone] [place] [address] * Urinalysis w/Microscopic + Reflex to Culture (08/03/2018 9:08 PM CEMENT CAR DUMPER) Color, UA Yellow [facility] Clarity, UA Clear [facility] Specific [place], UA 1.038 (H) 1.001 - 1.035 [facility] pH, UA 5.0 5.0 - 8.0 [facility] Protein, UA 10 mg/dL (A) Negative [facility] Glucose, UA Negative Negative [facility] Ketones, UA Negative Negative [facility] Bilirubin, UA Negative Negative [facility] Blood, UA Negative Negative [facility] Nitrite, UA Negative Negative [facility] Leukocytes, UA Negative Negative [facility] Urobilinogen, UA 0.2 0.2 - 1.0 mg/dL [facility] RBC, UA 1 /HPF [facility] WBC, UA 0 /HPF [facility] Squam Epithel, UA 1 /HPF [facility] Specimen Source [facility] Specimen Urine - Urine, Straight Catheter Performing Organization Address City/[facility]/Zipcode Phone Number [facility] [address] [place], [place] [phone] [facility] * Blood culture (08/03/2018 8:44 PM CEMENT CAR DUMPER) Only the most recent of 2 results within the time period is included. Result No growth in 5 days [facility] Specimen Blood - Arm, Left Performing Organization Address City/[facility]/Zipcode Phone Number [facility] [facility] [address] [place] [id number] [facility] * XR chest 1 view portable / bedside (08/03/2018 8:24 PM CEMENT CAR DU[employer]ER) Only the most recent of 3 results within the time period is included. Narrative Performed At FINAL REPORT GE [facility] Chest one view AP 08/03/2018 9:10 PM CLINICAL INDICATION: eval for sepsis COMPARISON: 08/03/2018 at 1342 IMPRESSION: The lungs are clear, save for bibasilar linear atelectasis. Cardiomediastinal contours are within normal limits. The central pulmonary vasculature is not engorged. Signed: Mazin Camara MD Report Verified Date/Time:08/03/2018 21:10:54 Reading Location: [facility] Radiology Reading Room Procedure Note Interface, External Ris In - 08/03/2018 9:27 PM CEMENT CAR [employer]ER FINAL REPORT Chest one view AP 08/03/2018 9:10 PM CLINICAL INDICATION: eval for sepsis COMPARISON: 08/03/2018 at 1342 IMPRESSION: The lungs are clear, save for bibasilar linear atelectasis. Cardiomediastinal contours are within normal limits. The central pulmonary vasculature is not engorged. Signed: Mazin Camara MD Report Verified Date/Time: 08/03/2018 21:10:54 Reading Location: [facility] Radiology Reading Room Performing Organization Address City/[facility] Phone Number GE RIS * POCT-HEMATOCRIT (08/03/2018 6:23 PM CEMENT CAR DUMPER) Only the most recent of 2 results within the time period is included. POC-Hematocrit 19 (L)Comment: TESTED AT [facility] 36 - 45 % [address] Specimen Blood Performing Organization Address [facility] Phone Number [address] [address] [phone] [place] [address] * POCT-HEMOGLOBIN (08/03/2018 6:23 PM [employer]EMENT CAR [employer]MPER) Only the most recent of 2 results within the time period is included. POC-Hemoglobin 6.5 (L)Comment: TESTED AT 12.0 - 15.0 g/dL [address] [address] AT [place] [address] Specimen Blood Performing Organization Address [facility] Phone Number [address] [address] [phone] [place] [address] * POCT-GLUCOSE (08/03/2018 6:23 PM [employer]EMENT CAR DU[employer]ER) Only the most recent of 2 results within the time period is included. POC-Glucose 132 (H)Comment: TESTED AT 70 - 110 mg/dL [address] [address] Specimen Blood Performing Organization Address [facility] Phone Number [address] [address] [facility] * POC-Sodium (08/03/2018 6:23 PM CEMENT [employer] DU[employer]ER) Only the most recent of 2 results within the time period is included. POC-Sodium 128 (L)Comment: TESTED AT 135 - 148 meq/L [address] [address] Specimen Blood Performing Organization Address [facility] Phone Number [facility] [address] [address] [facility] * POC-Potassium (08/03/2018 6:23 PM [employer]EMENT [employer] DU[employer]ER) Only the most recent of 2 results within the time period is included. POC-Potassium 5.6 (H)Comment: TESTED AT 3.6 - 5.5 meq/L [address] [address] Specimen Blood Performing Organization Address City[facility] Phone Number [id number] [place] [address] [phone] [place] [address] * POC-Calcium ionized (08/03/2018 6:23 PM [employer]EMENT [employer]ER) Only the most recent of 2 results within the time period is included. POC-Calcium Ionized 1.28 (H)Comment: TESTED AT 1.12 - 1.27 mmol/L [address] [address] Specimen Blood Performing Organization Address City[facility] Phone Number [address] [address] [phone] [place] [address] * POC-Blood gases, arterial (08/03/2018 6:23 PM CEMENT CAR DU[employer]) Temp. Celsius-POC 37.0 [facility] FIO2-POC Comment: TESTED AT [address] pH, Arterial-POC 7.289 (L) 7.350 - 7.450 [facility] PCO2, Arterial-POC 39.1 35.0 - 45.0 mm Hg [facility] PO2, Arterial-POC 73.0 (L) 80.0 - 90.0 mm Hg [facility] SO2, Arterial-POC 93.0 (L) 96.0 - 97.0 % [facility] HCO3, Arterilal-POC 18.7 (L) 21.0 - 29.0 meq/L [facility] BE, Arterial-POC -8.0 (L) -2.0 - 3.0 meq/L [facility] Specimen Blood Performing Organization Address City/[facility] Phone Number [facility] [address] [place] [address] [facility] * ECG 12 lead (08/03/2018 6:00 PM [employer]) Only the most recent of 3 results within the time period is included. Narrative Performed At Ventricular Rate 74 BPM GE MUSE Atrial Rate 74 BPM P-R Interval 196 ms QRS Duration 74 ms Q-T Interval 342 ms QTC Calculation(Bazett) 379 ms P Dumfries 35 degrees R Dumfries 24 degrees T Dumfries 91 degrees Normal sinus rhythm Abnormal QRS-T angle, consider primary T wave abnormality Abnormal ECG When compared with ECG of 02-AUG-2018 11:34, No significant change was found Confirmed by MD CUNHA JOSEPH P ([id number]) on 08/04/2018 6:52:54 AM Procedure Note Interface, External Ris In - 08/04/2018 6:53 AM CEMENT CAR DU[employer]ER Ventricular Rate 74 BPM Atrial Rate 74 BPM P-R Interval 196 ms QRS Duration 74 ms Q-T Interval 342 ms QTC Calculation(Bazett) 379 ms P [place] 35 degrees R Dumfries 24 degrees T [place] 91 degrees Normal sinus rhythm Abnormal QRS-T angle, consider primary T wave abnormality Abnormal ECG When compared with ECG of 02-AUG-2018 11:34, No significant change was found Confirmed by MD CUNHA JOSEPH P ([id number]) on 08/04/2018 6:52:54 AM Performing Organization Address [facility] Phone Number [facility] * POC-Lactic Acid, Venous (08/03/2018 5:58 PM C[employer] CAR DUMPER) POC-Lactic Acid, Venous 0.4 (L)Comment: TESTED AT 0.9 - 1.7 mmol/L [facility] [address] [facility] [address] Specimen Blood Performing Organization Address [facility] Phone Number [facility] [address] [place] [address] [facility] * Troponin I (08/03/2018 5:58 PM C[employer]ER) Only the most recent of 5 results within the time period is included. Troponin I <0.01 0.00 - 0.03 ng/mL [facility] Specimen Blood Narrative Performed At Troponin I (TnI) levels must be interpreted in the context of the presenting [facility] symptoms and the clinical findings. Elevated TnI levels indicate myocardial [facility] damage, but are not specific for ischemic heart disease. Elevated TnI levels are seen in patients with other cardiac conditions (including myocarditis and congestive heart failure), and slight TnI elevations occur in patients with other conditions, including sepsis, renal failure, acidosis, acute neurological disease, and persistent tachyarrhythmia. Performing Organization Address City/[facility] Phone Number [address] * Sodium (08/03/2018 5:58 PM C[employer] DU[employer]ER) Only the most recent of 5 results within the time period is included. Sodium 130 (L) 136 - 145 meq/L [facility] Specimen Blood Performing Organization Address [facility] Phone Number [address] * Ammonia (08/03/2018 5:58 PM CEMENT CAR DUMPER) Ammonia 38 18 - 72 mol/L [facility] Specimen Blood Performing Organization Address [facility] Phone Number [address] * POC-Blood gases, venous (08/03/2018 5:51 PM CEMENT CAR DUMPER) Temp. Celsius-POC 37.0 [facility] FIO2-POC Comment: TESTED AT [address] pH, Venous-POC 7.237 (L) 7.320 - 7.420 [facility] PCO2, Venous-POC 47.5 41.0 - 51.0 mm Hg [facility] PO2, Venous-POC 13.0 (L) 25.0 - 40.0 mm Hg [facility] SO2, Venous-POC 12.0 (L) 40.0 - 70.0 % [facility] HCO3, Venous-POC 20.2 (L) 21.0 - 29.0 meq/L [facility] BE, Venous-POC -7.0 (L) -2.0 - 3.0 meq/L [facility] Specimen Blood Performing Organization Address City/State/Zipcode Phone Number [facility] [address] [place], [place] [phone] [facility] * CT brain/stroke test design (08/03/2018 3:13 PM CEMENT CAR DUMPER) Only the most recent of 2 results within the time period is included. Narrative Performed At FINAL REPORT [facility] CT Head without contrast CLINICAL HISTORY: Stroke TECHNIQUE: Contiguous axial images through the head without contrast. This exam was performed according to the departmental dose optimization program which includes automated exposure control, adjustment of the mA and/or kV according to the patient size, and/or use of an iterative reconstruction technique. COMPARISON: MRI 08/03/2018 FINDINGS: There is no intracranial hemorrhage. Acute and subacute infarcts seen on the earlier MRI are grossly unchanged. There is no hydrocephalus or midline shift. There are no extra-axial fluid collections. The skull is intact. The paranasal sinuses are well-aerated. IMPRESSION: No intracranial hemorrhage. Signed: Velia Cunningham MD Report Verified Date/Time:08/03/2018 15:41:27 Reading Location: [facility] C0[facility] Neuro Reading Room Procedure Note Interface, External Ris In - 08/03/2018 3:43 PM CEMENT CAR DUMPER FINAL REPORT CT Head without contrast CLINICAL HISTORY: Stroke TECHNIQUE: Contiguous axial images through the head without contrast. This exam was performed according to the departmental dose optimization program which includes automated exposure control, adjustment of the mA and/or kV according to the patient size, and/or use of an iterative reconstruction technique. COMPARISON: MRI 08/03/2018 FINDINGS: There is no intracranial hemorrhage. Acute and subacute infarcts seen on the earlier MRI are grossly unchanged. There is no hydrocephalus or midline shift. There are no extra-axial fluid collections. The skull is intact. The paranasal sinuses are well-aerated. IMPRESSION: No intracranial hemorrhage. Signed: Velia Cunningham MD Report Verified Date/Time: 08/03/2018 15:41:27 Reading Location: [address] Neuro Reading Room Performing Organization Address City/State/Zipcode Phone Number GE RIS * MR brain without IV contrast (08/03/2018 12:55 PM CEMENT CAR DUMPER) Only the most recent of 3 results within the time period is included. Narrative Performed At FINAL REPORT [employer] MRI Brain without contrast Clinical History: Confusion/delirium, altered LOC, unexplained Technique: MRI of the brain utilizing axial T2, FLAIR, GRE, DWI; sagittal and coronal T1-weighted images. Comparisons: CT 08/02/2018, MRI 07/22/2018 Findings: There are new punctate acute infarcts involving the parasagittal right frontal lobe and in the posterior right temporal lobe. Previously acute infarcts involving the right basal ganglia and right bernabe are now subacute appearing. Previously acute right thalamic petechial hemorrhage is also now subacute. 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 There is mild periventricular and subcortical white matter T2 hyperintensity, which is nonspecific but compatible with chronic microvascular ischemic change. There is generalized parenchymal volume loss without hydrocephalus, midline shift, or significant mass effect. There are no extra-axial fluid collections. The craniocervical junction is preserved. The major intracranial flow-voids appear patent. IMPRESSION: Since 07/22/2018: New punctate acute infarcts in the parasagittal right parietal lobe and posterior right temporal lobe. Now subacute right basal ganglia and pontine infarcts. Now subacute right thalamic petechial hemorrhage. Signed: Velia Cunningham MD Report Verified Date/Time:08/03/2018 13:15:41 Reading Location: [address] Neuro Reading Room Procedure Note Interface, External Ris In - 08/03/2018 1:17 PM CEMENT CAR DUMPER FINAL REPORT MRI Brain without contrast Clinical History: Confusion/delirium, altered LOC, unexplained Technique: MRI of the brain utilizing axial T2, FLAIR, GRE, DWI; sagittal and coronal T1-weighted images. Comparisons: CT 08/02/2018, MRI 07/22/2018 Findings: There are new punctate acute infarcts involving the parasagittal right frontal lobe and in the posterior right temporal lobe. Previously acute infarcts involving the right basal ganglia and right bernabe are now subacute appearing. Previously acute right thalamic petechial hemorrhage is also now subacute. 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 There is mild periventricular and subcortical white matter T2 hyperintensity, which is nonspecific but compatible with chronic microvascular ischemic change. There is generalized parenchymal volume loss without hydrocephalus, midline shift, or significant mass effect. There are no extra-axial fluid collections. The craniocervical junction is preserved. The major intracranial flow-voids appear patent. IMPRESSION: Since 07/22/2018: New punctate acute infarcts in the parasagittal right parietal lobe and posterior right temporal lobe. Now subacute right basal ganglia and pontine infarcts. Now subacute right thalamic petechial hemorrhage. Signed: Velia Cunningham MD Report Verified Date/Time: 08/03/2018 13:15:41 Reading Location: [address] Neuro Reading Room Performing Organization Address City/State/Zipcode Phone Number [employer] * CT brain without & with IV contrast (08/02/2018 6:51 PM CEMENT CAR DUMPER) Narrative Performed At FINAL REPORT [employer] EXAMINATIONNONCONTRAST HEAD CT SCAN CLINICAL HISTORY:Altered mental status with decreased alertness. COMPARISON : CT 07/23/2018 , MRI 07/22/2018 EPISODE OF CARE: Initial TECHNIQUE: Axial tomographic images were obtained through the brain from the vertex to the skull base without intravenous contrast. The exam was performed according to our departmental dose optimization program which includes automated exposure control, adjustment of the mA and/or kV according to patient's size and/or use of iterative reconstructive technique. FINDINGS: Generalized volume loss, mild periventricular deep white matter changes, remote left occipital [employer] distribution infarct and intracranial calcific atherosclerosis are redemonstrated. Subacutely evolving right thalamic and pontine infarcts are also again noted without evidence hemorrhagic conversion or significant swelling-mass effect. Although there are no definitive findings to suggest evolving ischemia, CT is not sensitive for the correction of early or small infarcts. No evidence of acute intracranial hemorrhage, mass effect, midline shift, hydrocephalus or new extra-axial fluid collection. The visualized paranasal sinuses, tympanic cavities and mastoid air cells are well pneumatized. No evidence of an acute skull fracture or orbital injury. IMPRESSION: No definite evidence of an acute intracranial process. Subacute and chronic ischemic changes as detailed. If there is persistent clinical concern, consider MRI. Signed: Ioana Hoffman MD Report Verified Date/Time:08/02/2018 18:59:20 Reading Location: [address] Reading Room Procedure Note Interface, External Ris In - 08/02/2018 7:01 PM CEMENT CAR DUMPER FINAL REPORT EXAMINATION NONCONTRAST HEAD CT SCAN CLINICAL HISTORY:Altered mental status with decreased alertness. COMPARISON : CT 07/23/2018 , MRI 07/22/2018 EPISODE OF CARE: Initial TECHNIQUE: Axial tomographic images were obtained through the brain from the vertex to the skull base without intravenous contrast. The exam was performed according to our departmental dose optimization program which includes automated exposure control, adjustment of the mA and/or kV according to patient's size and/or use of iterative reconstructive technique. FINDINGS: Generalized volume loss, mild periventricular deep white matter changes, remote left occipital [employer] distribution infarct and intracranial calcific atherosclerosis are redemonstrated. Subacutely evolving right thalamic and pontine infarcts are also again noted without evidence hemorrhagic conversion or significant swelling-mass effect. Although there are no definitive findings to suggest evolving ischemia, CT is not sensitive for the correction of early or small infarcts. No evidence of acute intracranial hemorrhage, mass effect, midline shift, hydrocephalus or new extra-axial fluid collection. The visualized paranasal sinuses, tympanic cavities and mastoid air cells are well pneumatized. No evidence of an acute skull fracture or orbital injury. IMPRESSION: No definite evidence of an acute intracranial process. Subacute and chronic ischemic changes as detailed. If there is persistent clinical concern, consider MRI. Signed: Ioana Hoffman MD Report Verified Date/Time: 08/02/2018 18:59:20 Reading Location: [address] Reading Room Performing Organization Address City/State/Zipcode Phone Number RIS * Sodium, random urine (08/02/2018 12:03 PM CEMENT CAR DUMPER) Sodium Urine <20 meq/L [facility] Specimen Urine - Urine, Voided Narrative Performed At Reference Range: No Normals [facility] Performing Organization Address [facility] Phone Number [address] * Osmolality, serum (08/02/2018 11:56 AM CEMENT CAR DUMPER) Osmolality Serum 276 275 - 295 mOsm/kg [facility] Specimen Blood - Arm, Left Performing Organization Address [facility] Phone Number [address] * Osmolality, urine (08/02/2018 11:51 AM CEMENT CAR DUMPER) Osmolality, Ur 369 40-1,400 mOsm/kg [facility] Specimen Urine - Urine, Voided Performing Organization Address [facility] Phone Number [address] * Urinalysis w/Microscopic (08/02/2018 11:51 AM CEMENT CAR DUMPER) Color, UA Yellow [facility] Clarity, UA Hazy [facility] Specific [place], UA 1.014 1.001 - 1.035 [facility] pH, UA 5.0 5.0 - 8.0 [facility] Protein, UA Negative Negative [facility] Glucose, UA Negative Negative [facility] Ketones, UA Negative Negative [facility] Bilirubin, UA Negative Negative [facility] Blood, UA Negative Negative [facility] Nitrite, UA Negative Negative [facility] Leukocytes, UA Large (A) Negative [facility] Urobilinogen, UA 0.2 0.2 - 1.0 mg/dL [facility] RBC, UA 6 /HPF [facility] WBC, UA 50 /HPF [facility] Bacteria, UA Occasional [facility] Mucus Rare [facility] Squam Epithel, UA 9 /HPF [facility] Specimen Source Urine, Voided [facility] Specimen Urine - Urine, Voided Performing Organization Address City/State/Zipcode Phone Number [facility] [address] [place] [address] [facility] * XR hip 2 views left (07/31/2018 7:05 PM CEMENT CAR DUMPER) Only the most recent of 2 results within the time period is included. Narrative Performed At FINAL REPORT [facility] EXAMINATION: Left hip series, 2 views CLINICAL INDICATION: Fall, hip pain IMPRESSION: Compared with 07/31/2018, 0805 hours The examination is somewhat limited by the large volume of superimposed soft tissue attenuation. No definite evidence of acute fracture or malalignment. If there is persistent clinical concern, consider CT for further evaluation. Signed: Ioana Hoffman MD Report Verified Date/Time:08/01/2018 00:53:48 Reading Location: [address] Reading Room Procedure Note Interface, External Ris In - 08/01/2018 12:56 AM CEMENT CAR DU[employer]ER FINAL REPORT EXAMINATION: Left hip series, 2 views CLINICAL INDICATION: Fall, hip pain IMPRESSION: Compared with 07/31/2018, 0805 hours The examination is somewhat limited by the large volume of superimposed soft tissue attenuation. No definite evidence of acute fracture or malalignment. If there is persistent clinical concern, consider CT for further evaluation. Signed: Iaona Hoffman MD Report Verified Date/Time: 08/01/2018 00:53:48 Reading Location: [address] Reading Room Performing Organization Address City/[facility] Phone Number [facility]IS * Clostridium difficile [facility] Toxin (07/30/2018 12:32 PM CEMENT CAR DUMPER) C. Difficle Toxin Negative Negative [facility] C. Difficile [facility] Antigen NegativeComment: No indication Negative [facility] of Clostridium difficile [facility] infection and no colonization. Discontinue enteric isolation and therapy. Specimen Stool - Rectum Narrative Performed At Testing performed by [employer] Rapid Cassette Assay.For [facility], published [facility] sensitivity of the assay is 98.7% compared to cytotoxicity testing.For Toxin [facility], published sensitivity is 87.8% and specificity 99.4% compared to cytotoxicity testing. Verification of kit performance was done by the [facility] Microbiology Lab prior to clinical use. Performing Organization Address [facility] Phone Number [place] [phone] [place] [address] * Phosphorus (07/25/2018 4:43 AM CEMENT CAR DUMPER) Only the most recent of 3 results within the time period is included. Phosphorus 4.1Comment: Specimen slightly 2.3 - 4.7 mg/dL [facility] hemolyzed [facility] Specimen Blood Performing Organization Address [facility] Phone Number [place] [phone] [place] [address] * XR spine cervical 2 or 3 views (07/24/2018 5:50 PM CEMENT CAR DUMPER) Narrative Performed At FINAL REPORT [facility]IS Cervical spine series: No acute fracture, subluxation, or angulation. Straightening of the normal cervical spine lordosis. Moderate changes throughout the cervical spine with disc height narrowing, small osteophytes, and facet arthrosis. Normal prevertebral soft tissues. Impression: 1. Moderate degenerative changes throughout the cervical spine. 2. No acute abnormality. Signed: Jeff Medellin MD Report Verified Date/Time:07/24/2018 17:57:56 Reading Location: [address] Room Procedure Note Interface, External Ris In - 07/24/2018 6:00 PM CEMENT CAR DUMPER FINAL REPORT Cervical spine series: No acute fracture, subluxation, or angulation. Straightening of the normal cervical spine lordosis. Moderate changes throughout the cervical spine with disc height narrowing, small osteophytes, and facet arthrosis. Normal prevertebral soft tissues. Impression: 1. Moderate degenerative changes throughout the cervical spine. 2. No acute abnormality. Signed: Jeff [place] MD Report Verified Date/Time: 07/24/2018 17:57:56 Reading Location: [address] Reading Room Performing Organization Address City/State/Zipcode Phone Number GE RIS * CT brain without IV contrast (07/23/2018 6:30 AM CEMENT CAR DUMPER) Narrative Performed At FINAL REPORT [employer] CT head without contrast. Reason for exam: stroke thal hem conversion f/u imaging Comparisons: MRI dated July 22, 2018, CT dated July 12, 2018 Discussion: Multiple axial CT images of the head are provided without contrast evaluated in brain and bone windows. This exam was performed according to our departmental dose optimization program which includes automated exposure control, adjustment of the mA and/or kV according to patient's size and/or use of iterative reconstructive technique. There is a evolving infarct in the right thalamus, petechial hemorrhage was evident on prior MRI, and there is no conchita hemorrhagic transformation. There are also tiny infarcts in the paramedian right bernabe. A chronic old infarct is noted in the left occipital lobe. No evidence of new, acute large vascular territory infarct. No evidence of mass effect, hydrocephalus, or extra-axial collection. The visualized orbital contents, bones and surrounding soft tissues are unremarkable. The visualized paranasal sinuses and mastoid air cells are unremarkable. Impressions: Evolving small right thalamic, and pontine infarcts, without conchita hemorrhagic transformation. No acute process identified. Signed: Latrice Antoine MD Report Verified Date/Time:07/23/2018 07:19:38 Reading Location: [address] Neuro Reading Room Procedure Note Interface, External Ris In - 07/23/2018 7:21 AM CEMENT CAR DUMPER FINAL REPORT CT head without contrast. Reason for exam: stroke thal hem conversion f/u imaging Comparisons: MRI dated July 22, 2018, CT dated July 12, 2018 Discussion: Multiple axial CT images of the head are provided without contrast evaluated in brain and bone windows. This exam was performed according to our departmental dose optimization program which includes automated exposure control, adjustment of the mA and/or kV according to patient's size and/or use of iterative reconstructive technique. There is a evolving infarct in the right thalamus, petechial hemorrhage was evident on prior MRI, and there is no conchita hemorrhagic transformation. There are also tiny infarcts in the paramedian right bernabe. A chronic old infarct is noted in the left occipital lobe. No evidence of new, acute large vascular territory infarct. No evidence of mass effect, hydrocephalus, or extra-axial collection. The visualized orbital contents, bones and surrounding soft tissues are unremarkable. The visualized paranasal sinuses and mastoid air cells are unremarkable. Impressions: Evolving small right thalamic, and pontine infarcts, without conchita hemorrhagic transformation. No acute process identified. Signed: Latrice Antoine MD Report Verified Date/Time: 07/23/2018 07:19:38 Reading Location: [address] Neuro Reading Room Performing Organization Address [facility] Phone Number GE [facility]IS * Hemoglobin A1c (07/23/2018 4:36 AM CEMENT CAR DUMPER) Only the most recent of 2 results within the time period is included. Hemoglobin A1C 7.6 (H) 4.3 - 6.1 % [facility] Specimen Blood Performing Organization Address [facility]/Zipcode Phone Number [facility] [address] [place] [address] [facility] * Folate, Serum (07/14/2018 3:57 PM CEMENT CAR DUMPER) Folate 10.5 >=7.0 ng/mL [facility] Specimen Blood Performing Organization Address [facility] Phone Number [facility] [address] [place] [address] [facility] * XR ribs 2 views min unilateral left (07/14/2018 1:44 PM CEMENT CAR DUMPER) Narrative Performed At FINAL REPORT [employer] TECHNIQUE: Frontal chest radiograph as well as dedicated views of the left rib cage dated 07/14/2018. CLINICAL HISTORY: Fall COMPARISON STUDY: Chest radiograph dated 06/07/2007 FINDINGS: Questionable airspace opacity in the left retrocardiac region. No pleural effusion or pneumothorax. Cardiomediastinal silhouette is normal in size. No pulmonary edema. No fracture. IMPRESSION: No fracture. Questionable airspace opacity in the left retrocardiac region. Recommend follow-up radiographs. Signed: Barbara Sheppard MD Report Verified Date/Time:07/14/2018 13:55:29 Reading Location: [facility] Radiology Reading Room Procedure Note Interface, External Ris In - 07/14/2018 1:57 PM CEMENT CAR DUMPER FINAL REPORT TECHNIQUE: Frontal chest radiograph as well as dedicated views of the left rib cage dated 07/14/2018. CLINICAL HISTORY: Fall COMPARISON STUDY: Chest radiograph dated 06/07/2007 FINDINGS: Questionable airspace opacity in the left retrocardiac region. No pleural effusion or pneumothorax. Cardiomediastinal silhouette is normal in size. No pulmonary edema. No fracture. IMPRESSION: No fracture. Questionable airspace opacity in the left retrocardiac region. Recommend follow-up radiographs. Signed: Barbara Sheppard MD Report Verified Date/Time: 07/14/2018 13:55:29 Reading Location: [facility] Radiology Reading Room Performing Organization Address City/State/Zipcode Phone Number [facility] * ECHOCARDIOGRAM REPORT - SCAN (07/13/2018 3:50 PM CEMENT CAR DUMPER) Narrative Performed At * ECHO W CONTRAST & DOPPLER (07/13/2018 12:19 PM CEMENT CAR DUMPER) Ejection Fraction [facility] Narrative Performed At Transthoracic Echocardiography Report (TTE) [facility]ART[facility]ographics [facility] Patient NameHERNANDEZ, Date of Study07/13/2018 JESSICA Myers Gender Female Visit [id number] Race Other [id number] Number Date of 1935 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 Clinical History DM;HLD;HTN;THYROID HGB 11.1 HCT 34.8 % Contrast Medium: Bubble Study. Height: 60 inches Weight: 63.96 kg (141 lbs) BSA: 1.61 m^2 BMI: 27.54 kg/m^2 HR: 63 bpm BP: 168/68 mmHg Summary 1. Sigmoid septum with discrete basal septal hypertrophy is present. The LVOT peak systolic pressure gradient during Valsalva is in the range of 20 mmHg. LVEF by Hammer's method of disk assessment is normal (55-60%) All of the LV segments contract normally 2. Grade 1 diastolic dysfunction (impaired relaxation and high LA pressure). 3. IV saline contrast injection was negative for a PFO (patent foramen ovale) at rest and post Valsalva . Previous Study No prior studies available for comparison. Signature Findings Left Ventricle The LV endocardium is well visualized. The left ventricle is chamber size (by PSLAX dimension) is small (female - LVIDd < 3.8cm) . Sigmoid septum with discrete basal septal hypertrophy is present. Borderline concentric LV hypertrophy. The LVOT peak systolic pressure gradient during Valsalva is in the range of 20 mmHg. LVEF by Hammer's method of disk assessment is normal (55-60%) . All of the LV segments contract normally . Grade 1 diastolic dysfunction (impaired relaxation and high LA pressure). Left AtriumLA size is normal (16-34 ml/m2) . Right VentricleThe right ventricular chamber size and systolic function are within normal limits. Right Atrium RA size is normal. Atrial SeptumIV saline contrast injection was negative for a PFO (patent foramen ovale) at rest and post Valsalva . Aortic Valve Mild AoV cusp thickening. Mitral Valve Mild MV leaflet thickening. Mild mitral regurgitation. Tricuspid ValveMild tricuspid regurgitation. Estimated peak systolic PA pressure is 20-25mmHg. Pulmonic Valve Normal PV structure and function. AortaAortic root size (SInus of Valsalva diameter) is normal . PericardiumNo significant pericardial effusion is visualized. An echo lucent space is noted consistent with prominent pericardial fat pad. IVC/SVC/PA/PV/PleuralA left pleural effusion is noted. The estimated RA pressure by IVC dynamics 0-5mmHg . Chambers/Structures Left Atrium LA Volume: 46.39 ml LA Area: 20.74 cm^2 LA Vol. Index: 29 ml/m^2 Left Ventricle LVIDd: 3.52 cm LV Septum Diastolic: 1.11 cm LV PW Diastolic: 1.19 cm LVEDV Hammer's:54.34 ml LVESV Hammer's:24.12 ml LVEF Hammer's: 55.6 %LVEDVI: 34 ml/m^2 LVESVI: 15 ml/m^2 LVOT Diameter: 2.1 cm Aorta Ao Root S of Li.: 3.24 cm Doppler/Quantitative Measurements Mitral Valve MV Peak E-Wave: 0.74 m/sMV Peak A-Wave: 1.1 m/s E/A Ratio: 0.67 Mean Velocity: 0.69 m/s Peak Gradient: 2.16 mmHg Mean Gradient: 2.09 mmHgDeceleration Time: 429.2 msec Area (continuity): 3.29 cm^2 MV VTI: 30.07 cm MV Jose. Peak: 1.13 m/s Tissue Doppler E' Septal Velocity: 0.04 m/sE/E': 16.47 E' Lateral Velocity: 0.05 m/s Aortic Valve Peak Velocity: 1.42 m/sMean Velocity: 0.98 m/s Peak Gradient: 8.02 mmHg Mean Gradient: 4.42 mmHg AV Area (continuity): 2.93 cm^2 AV VTI: 33.81 cm AV DVI: 0.85 LVOT Peak Velocity: 1.14 m/s Peak Gradient: 5.22 mmHg Mean Velocity: 0.81 m/s Mean Gradient: 2.98 mmHg LVOT Diameter: 2.1 cm LVOT VTI: 28.58 cm LVOT Area: 3.46 cm^2LVOT SV:98.94 ml LVOT CO: 6.23 l/min LVOT CI: 3.87 l/min/m^2 Tricuspid Valve TR Velocity: 2.34 m/s TR Gradient: 21.87 mmHg Procedure Note Interface, External Ris In - 07/13/2018 3:21 PM CEMENT CAR DUMPER Transthoracic Echocardiography Report (TTE) Demographics Patient Name ENEDINA, Date of Study 07/13/2018 JESSICA Myers Gender Female Visit Number [id number] Race Other Room Number 7407 Number Date of 1935 Referring Charlene Pool Physician Age 83 year(s) Sap Payroll Consultant Katia Martinez RDCS Strip Mill Operator Petra Interpreting Maribell Cowan Physician Procedure Type of Study TTE procedure:2DECHO W/CONTRAST & DOPPLER (STAT) Indications:Suspected cardiac source of emboli. Clinical History DM;HLD;HTN;THYROID HGB 11.1 HCT 34.8 % Contrast Medium: Bubble Study. Height: 60 inches Weight: 63.96 kg (141 lbs) BSA: 1.61 m^2 BMI: 27.54 kg/m^2 HR: 63 bpm BP: 168/68 mmHg Summary 1. Sigmoid septum with discrete basal septal hypertrophy is present. The LVOT peak systolic pressure gradient during Valsalva is in the range of 20 mmHg. LVEF by Hammer's method of disk assessment is normal (55-60%) All of the LV segments contract normally 2. Grade 1 diastolic dysfunction (impaired relaxation and high LA pressure). 3. IV saline contrast injection was negative for a PFO (patent foramen ovale) at rest and post Valsalva . Previous Study No prior studies available for comparison. Signature Findings Left Ventricle The LV endocardium is well visualized. The left ventricle is chamber size (by PSLAX dimension) is small (female - LVIDd < 3.8cm) . Sigmoid septum with discrete basal septal hypertrophy is present. Borderline concentric LV hypertrophy. The LVOT peak systolic pressure gradient during Valsalva is in the range of 20 mmHg. LVEF by Hammer's method of disk assessment is normal (55-60%) . All of the LV segments contract normally . Grade 1 diastolic dysfunction (impaired relaxation and high LA pressure). Left Atrium LA size is normal (16-34 ml/m2) . Right Ventricle The right ventricular chamber size and systolic function are within normal limits. Right Atrium RA size is normal. Atrial Septum IV saline contrast injection was negative for a PFO (patent foramen ovale) at rest and post Valsalva . Aortic Valve Mild AoV cusp thickening. Mitral Valve Mild MV leaflet thickening. Mild mitral regurgitation. Tricuspid Valve Mild tricuspid regurgitation. Estimated peak systolic PA pressure is 20-25mmHg. Pulmonic Valve Normal PV structure and function. Aorta Aortic root size (SInus of Valsalva diameter) is normal . Pericardium No significant pericardial effusion is visualized. An echo lucent space is noted consistent with prominent pericardial fat pad. IVC/SVC/PA/PV/Pleural A left pleural effusion is noted. The estimated RA pressure by IVC dynamics 0-5mmHg . Chambers/Structures Left Atrium LA Volume: 46.39 ml LA Area: 20.74 cm^2 LA Vol. Index: 29 ml/m^2 Left Ventricle LVIDd: 3.52 cm LV Septum Diastolic: 1.11 cm LV PW Diastolic: 1.19 cm LVEDV Hammer's:54.34 ml LVESV Hammer's:24.12 ml LVEF Hammer's: 55.6 % LVEDVI: 34 ml/m^2 LVESVI: 15 ml/m^2 LVOT Diameter: 2.1 cm Aorta Ao Root S of Li.: 3.24 cm Doppler/Quantitative Measurements Mitral Valve MV Peak E-Wave: 0.74 m/s MV Peak A-Wave: 1.1 m/s E/A Ratio: 0.67 Mean Velocity: 0.69 m/s Peak Gradient: 2.16 mmHg Mean Gradient: 2.09 mmHg Deceleration Time: 429.2 msec Area (continuity): 3.29 cm^2 MV VTI: 30.07 cm MV Jose. Peak: 1.13 m/s Tissue Doppler E' Septal Velocity: 0.04 m/s E/E': 16.47 E' Lateral Velocity: 0.05 m/s Aortic Valve Peak Velocity: 1.42 m/s Mean Velocity: 0.98 m/s Peak Gradient: 8.02 mmHg Mean Gradient: 4.42 mmHg AV Area (continuity): 2.93 cm^2 AV VTI: 33.81 cm AV DVI: 0.85 LVOT Peak Velocity: 1.14 m/s Peak Gradient: 5.22 mmHg Mean Velocity: 0.81 m/s Mean Gradient: 2.98 mmHg LVOT Diameter: 2.1 cm LVOT VTI: 28.58 cm LVOT Area: 3.46 cm^2 LVOT SV:98.94 ml LVOT CO: 6.23 l/min LVOT CI: 3.87 l/min/m^2 Tricuspid Valve TR Velocity: 2.34 m/s TR Gradient: 21.87 mmHg Performing Organization Address [facility] Phone Number [facility] * Vitamin B12 (07/13/2018 5:35 AM CEMENT CAR DUMPER) Vitamin B12 230 213 - 816 pg/mL [facility] Specimen Blood - Arm, Right Performing Organization Address [facility] Phone Number [facility] [address] [place] [address] [facility] * Fasting lipid panel (07/13/2018 5:35 AM CEMENT CAR DUMPER) Triglycerides 102 mg/dL [facility] Cholesterol 178 mg/dL [facility] HDL 49 mg/dL [facility] LDL Calculated 109 mg/dL [facility] Specimen Blood - Arm, Right Narrative Performed At Triglyceride Reference Range: [facility] Low Risk <150 [facility] [id number] High Risk 200-499 Very High Risk>=500 Cholesterol Reference Range: Low Risk <200 [id number] High Risk>240 HDL Cholesterol Reference Range: Low Risk >=60 High Risk <40 LDL Cholesterol Reference Range: Optimal<100 Near [id number] [id number] Very High >=190 Fasting Performing Organization Address City/State/Zipcode Phone Number [facility] [address] [place] [address] [facility] * CT spine cervical without IV contrast (07/13/2018 1:45 AM CEMENT CAR DUMPER) Narrative Performed At FINAL REPORT [employer] CT Cervical spine CLINICAL HISTORY: trauma fall TECHNIQUE: Contiguous axial images of the cervical spine with coronal and sagittal reformations to assess the alignment. This exam was performed according to the departmental dose optimization program which includes automated exposure control, adjustment of the mA and/or kV according to the patient size, and/or use of an iterative reconstruction technique. COMPARISON: CTA head and neck dated 07/12/2018. FINDINGS: Examination somewhat limited by motion artifact. The vertebral body heights are preserved without fracture or dislocation. There is no prevertebral soft tissue swelling. There is maintenance of the cervical curvature and alignment. Multilevel degenerative changes with disc space narrowing resulting in at least moderate spinal canal stenosis at C4-5 and C5-6 mild spinal canal stenosis at C6-7. Uncovertebral spurring and facet hypertrophy results in multilevel neural foraminal stenosis. There are scattered subcentimeter lymph nodes in the neck. The visualized lung apices are clear. Coarse calcifications in the thyroid gland. IMPRESSION: No cervical fracture or dislocation. Multilevel degenerative changes as described above. Signed: Sunita Dunn MD Report Verified Date/Time:07/13/2018 02:45:40 Reading Location: [address] Neuro Reading Room Procedure Note Interface, External Ris In - 07/13/2018 2:47 AM CEMENT CAR DUMPER FINAL REPORT CT Cervical spine CLINICAL HISTORY: trauma fall TECHNIQUE: Contiguous axial images of the cervical spine with coronal and sagittal reformations to assess the alignment. This exam was performed according to the departmental dose optimization program which includes automated exposure control, adjustment of the mA and/or kV according to the patient size, and/or use of an iterative reconstruction technique. COMPARISON: CTA head and neck dated 07/12/2018. FINDINGS: Examination somewhat limited by motion artifact. The vertebral body heights are preserved without fracture or dislocation. There is no prevertebral soft tissue swelling. There is maintenance of the cervical curvature and alignment. Multilevel degenerative changes with disc space narrowing resulting in at least moderate spinal canal stenosis at C4-5 and C5-6 mild spinal canal stenosis at C6-7. Uncovertebral spurring and facet hypertrophy results in multilevel neural foraminal stenosis. There are scattered subcentimeter lymph nodes in the neck. The visualized lung apices are clear. Coarse calcifications in the thyroid gland. IMPRESSION: No cervical fracture or dislocation. Multilevel degenerative changes as described above. Signed: Sunita Dunn MD Report Verified Date/Time: 07/13/2018 02:45:40 Reading Location: [address] Neuro Reading Room Performing Organization Address City/State/Zipcode Phone Number [facility] * CTA carotid (07/12/2018 10:24 PM CEMENT CAR DUMPER) Narrative Performed At FINAL REPORT [facility] CLINICAL HISTORY: Stroke TECHNIQUE: Contiguous contrast-enhanced axial images through the neck followed by axial images through the head with coronal and sagittal reformations to assess the arterial circulation. 3-D reconstructions were performed using a volume rendered technique separately on a workstation. This exam was performed according to the departmental dose optimization program which includes automated exposure control, adjustment of the mA and/or kV according to the patient size, and/or use of an iterative reconstruction technique. COMPARISON: Same day CT head. FINDINGS: The basilar artery is patent. Common origin of the left superior cerebellar and posterior cerebral arteries. Multifocal mild stenosis in the left P2 posterior cerebral artery. Moderate stenosis in the distal right P1 posterior cerebral artery. Atherosclerotic calcifications of the carotid siphons bilaterally resulting in no more than mild stenosis in the supraclinoid left and cavernous right internal carotid arteries. Multifocal [id number]-[id number] stenosis in the M2 and M3 branches of the left MCA. Hypoplastic right A1 segment of the anterior cerebral artery. There is multifocal severe stenosis with short segment severe stenosis versus occlusion in the A2 segment of the right anterior cerebral artery with distal reconstitution. Moderate stenosis of the proximal M1 right middle cerebral artery with multifocal mild stenosis in the M2 right middle cerebral artery branches. The major intradural venous sinuses are patent. Atherosclerotic calcification of the aortic arch and proximal brachiocephalic artery resulting in mild stenosis. There is a 15 % stenosis of the proximal right internal carotid artery by NASCET criteria. There is 40% stenosis of the proximal left internal carotid artery by NASCET criteria. Moderate stenosis the origin of right vertebral artery. Multifocal mild stenosis of the V2 segment of the left vertebral artery secondary to osteophytosis formation of the cervical spine. There are dorsal spondylitic changes in the cervical spine. There are scattered subcentimeter lymph nodes in the neck.The visualized lung apices are clear.Coarse calcifications within the bilateral thyroid gland. No discrete lesions that meet size criteria for additional evaluation. Asymmetric enhancement of the right vocal fold, correlate with endoscopy as underlying neoplasm cannot be excluded. IMPRESSION: Multifocal intracranial atherosclerosis resulting in multifocal stenosis. Most notably : Moderate stenosis in the distal right P1 posterior cerebral artery. Multifocal [id number] stenosis in the M2 and M3 branches of the left MCA. Hypoplastic right A1 segment of the anterior cerebral artery. There is multifocal severe stenosis with short segment severe stenosis versus occlusion in the A2 segment of the right anterior cerebral artery with distal reconstitution (see delaney images). Moderate stenosis of the proximal M1 right middle cerebral artery with multifocal mild stenosis in the M2 right middle cerebral artery branches. There is a 15 % stenosis of the proximal right internal carotid artery by NASCET criteria. There is 40% stenosis of the proximal left internal carotid artery by NASCET criteria. Moderate stenosis the origin of right vertebral artery. Multifocal mild stenosis of the V2 segment of the left vertebral artery secondary to osteophytosis formation of the cervical spine. Asymmetric thickening and enhancement of the right vocal fold, correlate with endoscopy as underlying neoplasm cannot be excluded. NOTIFICATION: The significant results of this study were discussed with and acknowledged by In house neurology, by telephone on 07/12/2018 11:00 PM. Signed: Sunita Dunn MD Report Verified Date/Time:07/12/2018 23:26:25 Reading Location: [address] Transitional Reading Room Procedure Note Interface, External Ris In - 07/12/2018 11:28 PM CEMENT CAR DUMPER FINAL REPORT CLINICAL HISTORY: Stroke TECHNIQUE: Contiguous contrast-enhanced axial images through the neck followed by axial images through the head with coronal and sagittal reformations to assess the arterial circulation. 3-D reconstructions were performed using a volume rendered technique separately on a workstation. This exam was performed according to the departmental dose optimization program which includes automated exposure control, adjustment of the mA and/or kV according to the patient size, and/or use of an iterative reconstruction technique. COMPARISON: Same day CT head. FINDINGS: The basilar artery is patent. Common origin of the left superior cerebellar and posterior cerebral arteries. Multifocal mild stenosis in the left P2 posterior cerebral artery. Moderate stenosis in the distal right P1 posterior cerebral artery. Atherosclerotic calcifications of the carotid siphons bilaterally resulting in no more than mild stenosis in the supraclinoid left and cavernous right internal carotid arteries. Multifocal ugiw-kz-ahxbqjuz stenosis in the M2 and M3 branches of the left MCA. Hypoplastic right A1 segment of the anterior cerebral artery. There is multifocal severe stenosis with short segment severe stenosis versus occlusion in the A2 segment of the right anterior cerebral artery with distal reconstitution. Moderate stenosis of the proximal M1 right middle cerebral artery with multifocal mild stenosis in the M2 right middle cerebral artery branches. The major intradural venous sinuses are patent. Atherosclerotic calcification of the aortic arch and proximal brachiocephalic artery resulting in mild stenosis. There is a 15 % stenosis of the proximal right internal carotid artery by NASCET criteria. There is 40% stenosis of the proximal left internal carotid artery by NASCET criteria. Moderate stenosis the origin of right vertebral artery. Multifocal mild stenosis of the V2 segment of the left vertebral artery secondary to osteophytosis formation of the cervical spine. There are dorsal spondylitic changes in the cervical spine. There are scattered subcentimeter lymph nodes in the neck. The visualized lung apices are clear. Coarse calcifications within the bilateral thyroid gland. No discrete lesions that meet size criteria for additional evaluation. Asymmetric enhancement of the right vocal fold, correlate with endoscopy as underlying neoplasm cannot be excluded. IMPRESSION: Multifocal intracranial atherosclerosis resulting in multifocal stenosis. Most notably : Moderate stenosis in the distal right P1 posterior cerebral artery. Multifocal crpj-oj-lqokhjho stenosis in the M2 and M3 branches of the left MCA. Hypoplastic right A1 segment of the anterior cerebral artery. There is multifocal severe stenosis with short segment severe stenosis versus occlusion in the A2 segment of the right anterior cerebral artery with distal reconstitution (see delaney images). Moderate stenosis of the proximal M1 right middle cerebral artery with multifocal mild stenosis in the M2 right middle cerebral artery branches. There is a 15 % stenosis of the proximal right internal carotid artery by NASCET criteria. There is 40% stenosis of the proximal left internal carotid artery by NASCET criteria. Moderate stenosis the origin of right vertebral artery. Multifocal mild stenosis of the V2 segment of the left vertebral artery secondary to osteophytosis formation of the cervical spine. Asymmetric thickening and enhancement of the right vocal fold, correlate with endoscopy as underlying neoplasm cannot be excluded. NOTIFICATION: The significant results of this study were discussed with and acknowledged by In house neurology, by telephone on 07/12/2018 11:00 PM. Signed: Sunita Dunn MD Report Verified Date/Time: 07/12/2018 23:26:25 Reading Location: [address] Transitional Reading Room Performing Organization Address City/State/Zipcode Phone Number [employer] * CT brain cerebral perfusion analysis (07/12/2018 10:24 PM CEMENT CAR DUMPER) Narrative Performed At Addendum Begins [employer] REPORT STATUS:A Addendum: After reprocessing the perfusion maps there is noted to be decreased cerebral blood volume in the right thalamus with associated matched decreased cerebral blood flow, increased mean transit time and time to peak. There is unmatched decreased cerebral blood flow with increased time to peak and mean transit time in the right KAJAL territory. Signed: Sunita Dunn MD Report Verified Date/Time:07/13/2018 00:58:24 Reading Location: [address] Transitional Reading Room Addendum Ends FINAL REPORT CT BRAIN PERFUSION INDICATION: Stroke. TECHNIQUE: For the CT perfusion, 4 thick sections acquired for approximately 100 acquisitions during rapid bolus administration of contrast.Time to Start, Time to Peak, Mean Transit Time, Cerebral Blood Flow and Cerebral Blood Volume maps were created. DOSE REDUCTION: Dose modulation, iterative reconstruction, and/or weight-based adjustment of the mA/kV was utilized to reduce the radiation dose to as low as reasonably achievable. FINDINGS: CT PERFUSION PARAMETRIC MAPS: Extremely Limited examination of the perfusion sequences rendering essentially a nondiagnostic examination likely related to retained contrast material within the cortex. IMPRESSION: Essentially nondiagnostic perfusion maps secondary to technical factors. Findings were discussed with neurology team web production manager at the time of the examination. Signed: Sunita Dunn MD Report Verified Date/Time:07/13/2018 00:20:35 Reading Location: [address] Transitional Reading Room Procedure Note Interface, External Ris In - 07/13/2018 1:21 AM CEMENT CAR [employer]MPER Addendum Begins REPORT STATUS:A Addendum: After reprocessing the perfusion maps there is noted to be decreased cerebral blood volume in the right thalamus with associated matched decreased cerebral blood flow, increased mean transit time and time to peak. There is unmatched decreased cerebral blood flow with increased time to peak and mean transit time in the right KAJAL territory. Signed: Sunita Dunn MD Report Verified Date/Time: 07/13/2018 00:58:24 Reading Location: [address] Transitional Reading Room Addendum Ends FINAL REPORT CT BRAIN PERFUSION INDICATION: Stroke. TECHNIQUE: For the CT perfusion, 4 thick sections acquired for approximately 100 acquisitions during rapid bolus administration of contrast. Time to Start, Time to Peak, Mean Transit Time, Cerebral Blood Flow and Cerebral Blood Volume maps were created. DOSE REDUCTION: Dose modulation, iterative reconstruction, and/or weight-based adjustment of the mA/kV was utilized to reduce the radiation dose to as low as reasonably achievable. FINDINGS: CT PERFUSION PARAMETRIC MAPS: Extremely Limited examination of the perfusion sequences rendering essentially a nondiagnostic examination likely related to retained contrast material within the cortex. IMPRESSION: Essentially nondiagnostic perfusion maps secondary to technical factors. Findings were discussed with neurology team web production manager at the time of the examination. Signed: Sunita Dunn MD Report Verified Date/Time: 07/13/2018 00:20:35 Reading Location: [address] Transitional Reading Room Performing Organization Address City/State/Zipcode Phone Number [facility] * CTA brain (07/12/2018 10:24 PM C[employer]) Narrative Performed At FINAL REPORT [facility] CLINICAL HISTORY: Stroke TECHNIQUE: Contiguous contrast-enhanced axial images through the neck followed by axial images through the head with coronal and sagittal reformations to assess the arterial circulation. 3-D reconstructions were performed using a volume rendered technique separately on a workstation. This exam was performed according to the departmental dose optimization program which includes automated exposure control, adjustment of the mA and/or kV according to the patient size, and/or use of an iterative reconstruction technique. COMPARISON: Same day CT head. FINDINGS: The basilar artery is patent. Common origin of the left superior cerebellar and posterior cerebral arteries. Multifocal mild stenosis in the left P2 posterior cerebral artery. Moderate stenosis in the distal right P1 posterior cerebral artery. Atherosclerotic calcifications of the carotid siphons bilaterally resulting in no more than mild stenosis in the supraclinoid left and cavernous right internal carotid arteries. Multifocal cnad-mf-nvxqewvc stenosis in the M2 and M3 branches of the left MCA. Hypoplastic right A1 segment of the anterior cerebral artery. There is multifocal severe stenosis with short segment severe stenosis versus occlusion in the A2 segment of the right anterior cerebral artery with distal reconstitution. Moderate stenosis of the proximal M1 right middle cerebral artery with multifocal mild stenosis in the M2 right middle cerebral artery branches. The major intradural venous sinuses are patent. Atherosclerotic calcification of the aortic arch and proximal brachiocephalic artery resulting in mild stenosis. There is a 15 % stenosis of the proximal right internal carotid artery by NASCET criteria. There is 40% stenosis of the proximal left internal carotid artery by NASCET criteria. Moderate stenosis the origin of right vertebral artery. Multifocal mild stenosis of the V2 segment of the left vertebral artery secondary to osteophytosis formation of the cervical spine. There are dorsal spondylitic changes in the cervical spine. There are scattered subcentimeter lymph nodes in the neck.The visualized lung apices are clear.Coarse calcifications within the bilateral thyroid gland. No discrete lesions that meet size criteria for additional evaluation. Asymmetric enhancement of the right vocal fold, correlate with endoscopy as underlying neoplasm cannot be excluded. IMPRESSION: Multifocal intracranial atherosclerosis resulting in multifocal stenosis. Most notably : Moderate stenosis in the distal right P1 posterior cerebral artery. Multifocal yhfm-cp-kmpuwkhj stenosis in the M2 and M3 branches of the left MCA. Hypoplastic right A1 segment of the anterior cerebral artery. There is multifocal severe stenosis with short segment severe stenosis versus occlusion in the A2 segment of the right anterior cerebral artery with distal reconstitution (see delaney images). Moderate stenosis of the proximal M1 right middle cerebral artery with multifocal mild stenosis in the M2 right middle cerebral artery branches. There is a 15 % stenosis of the proximal right internal carotid artery by NASCET criteria. There is 40% stenosis of the proximal left internal carotid artery by NASCET criteria. Moderate stenosis the origin of right vertebral artery. Multifocal mild stenosis of the V2 segment of the left vertebral artery secondary to osteophytosis formation of the cervical spine. Asymmetric thickening and enhancement of the right vocal fold, correlate with endoscopy as underlying neoplasm cannot be excluded. NOTIFICATION: The significant results of this study were discussed with and acknowledged by In house neurology, by telephone on 07/12/2018 11:00 PM. Signed: Sunita Dunn MD Report Verified Date/Time:07/12/2018 23:26:25 Reading Location: [address] Transitional Reading Room Procedure Note Interface, External Ris In - 07/13/2018 10:56 PM C[employer] FINAL REPORT CLINICAL HISTORY: Stroke TECHNIQUE: Contiguous contrast-enhanced axial images through the neck followed by axial images through the head with coronal and sagittal reformations to assess the arterial circulation. 3-D reconstructions were performed using a volume rendered technique separately on a workstation. This exam was performed according to the departmental dose optimization program which includes automated exposure control, adjustment of the mA and/or kV according to the patient size, and/or use of an iterative reconstruction technique. COMPARISON: Same day CT head. FINDINGS: The basilar artery is patent. Common origin of the left superior cerebellar and posterior cerebral arteries. Multifocal mild stenosis in the left P2 posterior cerebral artery. Moderate stenosis in the distal right P1 posterior cerebral artery. Atherosclerotic calcifications of the carotid siphons bilaterally resulting in no more than mild stenosis in the supraclinoid left and cavernous right internal carotid arteries. Multifocal tvqg-hl-upbvxtim stenosis in the M2 and M3 branches of the left MCA. Hypoplastic right A1 segment of the anterior cerebral artery. There is multifocal severe stenosis with short segment severe stenosis versus occlusion in the A2 segment of the right anterior cerebral artery with distal reconstitution. Moderate stenosis of the proximal M1 right middle cerebral artery with multifocal mild stenosis in the M2 right middle cerebral artery branches. The major intradural venous sinuses are patent. Atherosclerotic calcification of the aortic arch and proximal brachiocephalic artery resulting in mild stenosis. There is a 15 % stenosis of the proximal right internal carotid artery by NASCET criteria. There is 40% stenosis of the proximal left internal carotid artery by NASCET criteria. Moderate stenosis the origin of right vertebral artery. Multifocal mild stenosis of the V2 segment of the left vertebral artery secondary to osteophytosis formation of the cervical spine. There are dorsal spondylitic changes in the cervical spine. There are scattered subcentimeter lymph nodes in the neck. The visualized lung apices are clear. Coarse calcifications within the bilateral thyroid gland. No discrete lesions that meet size criteria for additional evaluation. Asymmetric enhancement of the right vocal fold, correlate with endoscopy as underlying neoplasm cannot be excluded. IMPRESSION: Multifocal intracranial atherosclerosis resulting in multifocal stenosis. Most notably : Moderate stenosis in the distal right P1 posterior cerebral artery. Multifocal icic-hq-zamresmw stenosis in the M2 and M3 branches of the left MCA. Hypoplastic right A1 segment of the anterior cerebral artery. There is multifocal severe stenosis with short segment severe stenosis versus occlusion in the A2 segment of the right anterior cerebral artery with distal reconstitution (see delaney images). Moderate stenosis of the proximal M1 right middle cerebral artery with multifocal mild stenosis in the M2 right middle cerebral artery branches. There is a 15 % stenosis of the proximal right internal carotid artery by NASCET criteria. There is 40% stenosis of the proximal left internal carotid artery by NASCET criteria. Moderate stenosis the origin of right vertebral artery. Multifocal mild stenosis of the V2 segment of the left vertebral artery secondary to osteophytosis formation of the cervical spine. Asymmetric thickening and enhancement of the right vocal fold, correlate with endoscopy as underlying neoplasm cannot be excluded. NOTIFICATION: The significant results of this study were discussed with and acknowledged by In house neurology, by telephone on 07/12/2018 11:00 PM. 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 Critical care was necessary to treat or prevent imminent or life-threatening deterioration of the following conditions: BUILDING ASSOCIATE failure or compromise. Critical care was time spent personally by me on the following activities: development of treatment plan with patient or surrogate, discussions with consultants, discussions with primary provider, interpretation of cardiac output measurements, evaluation of patient's response to treatment, examination of patient, obtaining history from patient or surrogate, ordering and performing treatments and interventions, ordering and review of laboratory studies, ordering and review of radiographic studies, pulse oximetry, re-evaluation of patient's condition and review of old charts. * XR spine lumbar complete 4 views min (06/05/2018 12:41 PM CDT) Narrative Performed At FINAL REPORT [facility] Lumbar spine, five images HISTORY: Back pain COMPARISON: None IMPRESSION: Five lumbar type vertebral bodies. No evidence of fracture. Multilevel degenerative facet changes, moderate. Grade 1 anterolisthesis of L4 on L5, likely degenerative. Atherosclerosis. Signed: Juliano Salinas MD Report Verified Date/Time:06/05/2018 12:59:10 Reading Location: [facility] C013[facility] Consult Reading Room Procedure Note Interface, External Ris In - 06/05/2018 1:01 PM CDT FINAL REPORT Lumbar spine, five images HISTORY: Back pain COMPARISON: None IMPRESSION: Five lumbar type vertebral bodies. No evidence of fracture. Multilevel degenerative facet changes, moderate. Grade 1 anterolisthesis of L4 on L5, likely degenerative. Atherosclerosis. Signed: Juliano Salinas MD Report Verified Date/Time: 06/05/2018 12:59:10 Reading Location: [facility] [id number] Ortho Consult Reading Room Performing Organization Address City/State/Zipcode Phone Number [employer] RIS after 10/04/2017 Insurance Payer Benefit Subscriber ID Type Phone Address Plan / Group [employer] [facility] [facility] Directives For more information, please contact: [facility] [address] [place] [address] Date Inactivated Comments Code Status Date Activated 08/03/2018 6:52 PM Full Code 07/25/2018 3:24 PM This code status was determined by: Patient 07/25/2018 3:18 PM Full Code 07/22/2018 5:08 PM This code status was determined by: Patient 07/22/2018 4:16 PM Full Code 07/18/2018 4:01 PM This code status was determined by: Patient 07/18/2018 3:40 PM Full Code 07/13/2018 3:35 AM This code status was determined by: Patient
--- OUTSIDE RECORDS SUMMARY | 2018-10-05 13:19 | XMS REPORT ---
Author Author [facility] Address Unknown Phone Unavailable Care Team Providers Care Rug Frame Mounter Name Role Phone LIZZIE LUGOISHAN ROBERSON Unavailable Unavailable HODAN CUNNINGHAM Unavailable Unavailable Tam SEE Unavailable Unavailable CRISTIAAN CHRISTIANSON Unavailable Unavailable Problems This patient has no known problems. Allergies, Adverse Reactions, Alerts This patient has no known allergies or adverse reactions. Medications This patient has no known medications. Results Test Description Test Time Test Comments Text Results Atomic Results Result Comments POCT-GLUCOSE METER 2018-08-16 12:27:00 POC-GLUCOSE METER (BEAKER) (test yxey=8208) 206 mg/dL 70-110 TESTED AT [address] [address] POCT-GLUCOSE [id number] 08:05:00* Test Item Value Reference Range Comments POC-GLUCOSE METER (BEAKER) (test fecv=0057) 121 mg/dL 70-110 TESTED AT [address] [address] [id number] 05:34:00* Test Item Value Reference Range Comments MAGNESIUM (BEAKER) (test itzj=112) 1.8 mg/dL 1.6-2.6 Specimen slightly hemolyzed BASIC METABOLIC [id number] 05:34:00* Test Item Value Reference Range Comments SODIUM (BEAKER) (test wsbt=454) 136 meq/L 136-145 POTASSIUM (BEAKER) (test wchx=788) 4.4 meq/L 3.5-5.1 Specimen slightly hemolyzed CHLORIDE (BEAKER) (test xeys=843) 105 meq/L 98-107 CO2 (BEAKER) (test rgyj=355) 24 meq/L 22-29 BLOOD UREA NITROGEN (BEAKER) (test vxyj=356) 12 mg/dL 7-21 CREATININE (BEAKER) (test mvvn=404) 0.72 mg/dL 0.57-1.25 Specimen slightly hemolyzed GLUCOSE RANDOM (BEAKER) (test orxz=298) 125 mg/dL 70-105 CALCIUM (BEAKER) (test vcdk=223) 9.3 mg/dL 8.4-10.2 EGFR (BEAKER) (test puuj=9602) 78 mL/min/1.73 sq m ESTIMATED GFR IS NOT ACCURATE CREATININE CLEARANCE IN PREDICTING GLOMERULAR FILTRATION RATE. ESTIMATED GFR IS NOT APPLICABLE FOR DIALYSIS PATIENTS. HEMOGLOBIN AND [id number] 05:14:00* Test Item Value Reference Range Comments HEMOGLOBIN (BEAKER) (test ojln=773) 9.2 GM/DL 11.2-15.7 HEMATOCRIT (BEAKER) (test aupt=375) 28.8 % 34.1-44.9 POCT-GLUCOSE [id number] 21:04:00* Test Item Value Reference Range Comments POC-GLUCOSE METER (BEAKER) (test jhva=0192) 251 mg/dL 70-110 TESTED AT [address] [address] POCT-GLUCOSE [id number] 18:05:00* Test Item Value Reference Range Comments POC-GLUCOSE METER (BEAKER) (test tkqp=6929) 143 mg/dL 70-110 TESTED AT [address] [address] POCT-GLUCOSE [id number] 12:37:00* Test Item Value Reference Range Comments POC-GLUCOSE METER (BEAKER) (test jsnd=2157) 282 mg/dL 70-110 TESTED AT [address] [address] POCT-GLUCOSE [id number] 08:08:00* Test Item Value Reference Range Comments POC-GLUCOSE METER (BEAKER) (test zssg=1320) 120 mg/dL 70-110 TESTED AT [address] [address] [id number] 05:37:00* Test Item Value Reference Range Comments MAGNESIUM (BEAKER) (test bret=188) 1.5 mg/dL 1.6-2.6 BASIC METABOLIC [id number] 05:37:00* Test Item Value Reference Range Comments SODIUM (BEAKER) (test ttpi=302) 133 meq/L 136-145 POTASSIUM (BEAKER) (test todg=140) 4.0 meq/L 3.5-5.1 CHLORIDE (BEAKER) (test wquq=877) 103 meq/L 98-107 CO2 (BEAKER) (test wmxp=805) 24 meq/L 22-29 BLOOD UREA NITROGEN (BEAKER) (test bbmo=225) 9 mg/dL 7-21 CREATININE (BEAKER) (test wcry=280) 0.66 mg/dL 0.57-1.25 GLUCOSE RANDOM (BEAKER) (test kfmp=644) 112 mg/dL 70-105 CALCIUM (BEAKER) (test ajim=772) 8.9 mg/dL 8.4-10.2 EGFR (BEAKER) (test tfkk=4134) 86 mL/min/1.73 sq m ESTIMATED GFR IS NOT ACCURATE CREATININE CLEARANCE IN PREDICTING GLOMERULAR FILTRATION RATE. ESTIMATED GFR IS NOT APPLICABLE FOR DIALYSIS PATIENTS. HEMOGLOBIN AND [id number] 05:11:00* Test Item Value Reference Range Comments HEMOGLOBIN (BEAKER) (test cgmt=859) 9.0 GM/DL 11.2-15.7 HEMATOCRIT (BEAKER) (test ihfq=445) 28.3 % 34.1-44.9 POCT-GLUCOSE [id number] 21:23:00* Test Item Value Reference Range Comments POC-GLUCOSE METER (BEAKER) (test cpld=3571) 205 mg/dL 70-110 TESTED AT [place] [id number] [facility] [address] POCT-GLUCOSE [id number] 17:11:00* Test Item Value Reference Range Comments POC-GLUCOSE METER (BEAKER) (test bbmd=7794) 192 mg/dL 70-110 TESTED AT [address] [address] POCT-GLUCOSE [id number] 12:07:00* Test Item Value Reference Range Comments POC-GLUCOSE METER (BEAKER) (test ylff=7262) 143 mg/dL 70-110 TESTED AT [address] [address] POCT-GLUCOSE [id number] 08:45:00* Test Item Value Reference Range Comments POC-GLUCOSE METER (BEAKER) (test sqac=7308) 103 mg/dL 70-110 TESTED AT [address] [address] [id number] 07:23:00* Test Item Value Reference Range Comments MAGNESIUM (BEAKER) (test ttma=451) 1.7 mg/dL 1.6-2.6 BASIC METABOLIC [id number] 07:23:00* Test Item Value Reference Range Comments SODIUM (BEAKER) (test uwzy=658) 135 meq/L 136-145 POTASSIUM (BEAKER) (test qmct=485) 4.1 meq/L 3.5-5.1 CHLORIDE (BEAKER) (test cdsf=023) 104 meq/L 98-107 CO2 (BEAKER) (test yjam=534) 24 meq/L 22-29 BLOOD UREA NITROGEN (BEAKER) (test hwue=450) 13 mg/dL 7-21 CREATININE (BEAKER) (test osvc=458) 0.74 mg/dL 0.57-1.25 GLUCOSE RANDOM (BEAKER) (test detc=791) 96 mg/dL 70-105 CALCIUM (BEAKER) (test htnt=949) 9.0 mg/dL 8.4-10.2 EGFR (BEAKER) (test nlxn=8132) 75 mL/min/1.73 sq m ESTIMATED GFR IS NOT ACCURATE CREATININE CLEARANCE IN PREDICTING GLOMERULAR FILTRATION RATE. ESTIMATED GFR IS NOT APPLICABLE FOR DIALYSIS PATIENTS. HEMOGLOBIN AND [id number] 06:03:00* Test Item Value Reference Range Comments HEMOGLOBIN (BEAKER) (test minh=958) 8.8 GM/DL 11.2-15.7 HEMATOCRIT (BEAKER) (test djje=178) 27.1 % 34.1-44.9 POCT-GLUCOSE [id number] 21:16:00* Test Item Value Reference Range Comments POC-GLUCOSE METER (BEAKER) (test bnxo=7310) 235 mg/dL 70-110 TESTED AT [facility] [address] [facility] [address] POCT-GLUCOSE [id number] 17:53:00* Test Item Value Reference Range Comments POC-GLUCOSE METER (BEAKER) (test efjq=9654) 160 mg/dL 70-110 TESTED AT [place] [id number] [facility] [address] POCT-GLUCOSE [id number] 12:53:00* Test Item Value Reference Range Comments POC-GLUCOSE METER (BEAKER) (test wgkm=6756) 155 mg/dL 70-110 TESTED AT [place] [id number] [facility] [address] CT, EXTREMITY, LOWER WITHOUT CONTRAST, [id number] 09:00:00FINAL REPORT INDICATION:83-year-old female with left hip pain after fall. COMPARISON: August 03, 2018 TECHNIQUE: CT of the left lower extremity (hip) was performed WITHOUT contrast. The exam was performed according to our department dose-optimization protocol, which includes automated exposure control, adjustments of mA and kV according to patient size. Iterative reconstru ctions are also sometimes employed. FINDINGS:There is no left hip fracture. Babatunde britany in the subcutaneous fat of the left hip is again demonstrated. It measures 5 x 5 cm axial plane slightly decreased in size from 6 x 6 cm since August 03, 2018. Surrounding edema of the subcutaneous fat has also slightly decreased. Mu scles and tendons of the left hip are grossly intact. No left hip joint effusion and no bursal collection. There is joint space loss in the left hip without fem oral head osteophyte formation or acetabular subchondral cyst formation. Mild de generative change of the left sacroiliac joint and pubic symphysis again demonst rated. There is moderate to severe disc space, endplate, and facet degenerative change at L5-S1 and L4-5. Soft tissue contents of the pelvis are unremarkable. I MPRESSION:Slight interval decrease in size of hematoma in the subcutaneous fat o f the left hip. Signed: Jb Palomo MDReport Verified Date/Time: 09:00:10 Reading Location: [facility] C013X Ortho Consult Reading Room [facility] signed by: JB PALOMO M.D. on 08/13/2018 09:00 AM POCT-GLUCOSE [id number] 07:16:00* Test Item Value Reference Range Comments POC-GLUCOSE METER (BEAKER) (test pkke=2444) 119 mg/dL 70-110 TESTED AT [address] [address] [id number] 06:36:00* Test Item Value Reference Range Comments MAGNESIUM (BEAKER) (test hdgr=168) 1.6 mg/dL 1.6-2.6 BASIC METABOLIC [id number] 06:36:00* Test Item Value Reference Range Comments SODIUM (BEAKER) (test jruo=085) 137 meq/L 136-145 POTASSIUM (BEAKER) (test ivwo=093) 4.1 meq/L 3.5-5.1 CHLORIDE (BEAKER) (test rwap=539) 106 meq/L 98-107 CO2 (BEAKER) (test palx=174) 27 meq/L 22-29 BLOOD UREA NITROGEN (BEAKER) (test fafm=383) 15 mg/dL 7-21 CREATININE (BEAKER) (test fgzn=816) 0.68 mg/dL 0.57-1.25 GLUCOSE RANDOM (BEAKER) (test jamd=268) 102 mg/dL 70-105 CALCIUM (BEAKER) (test hpdq=833) 9.3 mg/dL 8.4-10.2 EGFR (BEAKER) (test znwz=5261) 83 mL/min/1.73 sq m ESTIMATED GFR IS NOT ACCURATE CREATININE CLEARANCE IN PREDICTING GLOMERULAR FILTRATION RATE. ESTIMATED GFR IS NOT APPLICABLE FOR DIALYSIS PATIENTS. HEMOGLOBIN AND [id number] 05:59:00* Test Item Value Reference Range Comments HEMOGLOBIN (BEAKER) (test nrtz=605) 8.4 GM/DL 11.2-15.7 HEMATOCRIT (BEAKER) (test lifp=497) 26.4 % 34.1-44.9 POCT-GLUCOSE [id number] 21:26:00* Test Item Value Reference Range Comments POC-GLUCOSE METER (BEAKER) (test eejl=1067) 214 mg/dL 70-110 TESTED AT [address] [address] POCT-GLUCOSE [id number] 17:35:00* Test Item Value Reference Range Comments POC-GLUCOSE METER (BEAKER) (test fpxe=8995) 156 mg/dL 70-110 TESTED AT [address] [address] POCT-GLUCOSE [id number] 12:29:00* Test Item Value Reference Range Comments POC-GLUCOSE METER (BEAKER) (test wutu=8652) 259 mg/dL 70-110 TESTED AT [address] [address] POCT-GLUCOSE [id number] 07:17:00* Test Item Value Reference Range Comments POC-GLUCOSE METER (BEAKER) (test zasg=8724) 145 mg/dL 70-110 TESTED AT [address] [address] [id number] 05:01:00* Test Item Value Reference Range Comments MAGNESIUM (BEAKER) (test tjbb=233) 1.7 mg/dL 1.6-2.6 BASIC METABOLIC [id number] 05:01:00* Test Item Value Reference Range Comments SODIUM (BEAKER) (test lvfb=764) 137 meq/L 136-145 POTASSIUM (BEAKER) (test ihjx=593) 4.1 meq/L 3.5-5.1 CHLORIDE (BEAKER) (test yjzm=127) 106 meq/L 98-107 CO2 (BEAKER) (test dxik=862) 25 meq/L 22-29 BLOOD UREA NITROGEN (BEAKER) (test zcwg=427) 19 mg/dL 7-21 CREATININE (BEAKER) (test qnmu=609) 0.72 mg/dL 0.57-1.25 GLUCOSE RANDOM (BEAKER) (test xvts=518) 131 mg/dL 70-105 CALCIUM (BEAKER) (test gtkz=081) 9.3 mg/dL 8.4-10.2 EGFR (BEAKER) (test syyt=6539) 78 mL/min/1.73 sq m ESTIMATED GFR IS NOT ACCURATE CREATININE CLEARANCE IN PREDICTING GLOMERULAR FILTRATION RATE. ESTIMATED GFR IS NOT APPLICABLE FOR DIALYSIS PATIENTS. POCT-GLUCOSE [id number] 21:45:00* Test Item Value Reference Range Comments POC-GLUCOSE METER (BEAKER) (test whgd=9277) 192 mg/dL 70-110 TESTED AT [address] [address] POCT-GLUCOSE [id number] 17:19:00* Test Item Value Reference Range Comments POC-GLUCOSE METER (BEAKER) (test fqkr=1193) 238 mg/dL 70-110 TESTED AT [address] [address] BASIC METABOLIC [id number] 16:03:00* Test Item Value Reference Range Comments SODIUM (BEAKER) (test vnju=231) 134 meq/L 136-145 POTASSIUM (BEAKER) (test zqee=900) 4.4 meq/L 3.5-5.1 CHLORIDE (BEAKER) (test fvig=190) 102 meq/L 98-107 CO2 (BEAKER) (test wdyl=069) 29 meq/L 22-29 BLOOD UREA NITROGEN (BEAKER) (test wbxw=174) 24 mg/dL 7-21 CREATININE (BEAKER) (test xker=736) 0.83 mg/dL 0.57-1.25 GLUCOSE RANDOM (BEAKER) (test sodm=887) 251 mg/dL 70-105 CALCIUM (BEAKER) (test dkvv=418) 9.6 mg/dL 8.4-10.2 EGFR (BEAKER) (test dgoy=7840) 66 mL/min/1.73 sq m ESTIMATED GFR IS NOT ACCURATE CREATININE CLEARANCE IN PREDICTING GLOMERULAR FILTRATION RATE. ESTIMATED GFR IS NOT APPLICABLE FOR DIALYSIS PATIENTS. POCT-GLUCOSE [id number] 12:57:00* Test Item Value Reference Range Comments POC-GLUCOSE METER (BEAKER) (test adzh=6628) 277 mg/dL 70-110 TESTED AT [facility] [address] [facility] [address] POCT-GLUCOSE [id number] 08:37:00* Test Item Value Reference Range Comments POC-GLUCOSE METER (BEAKER) (test tuio=6830) 184 mg/dL 70-110 TESTED AT [place] [id number] [facility] [address] BASIC METABOLIC [id number] 04:34:00* Test Item Value Reference Range Comments SODIUM (BEAKER) (test ikxs=053) 136 meq/L 136-145 POTASSIUM (BEAKER) (test pdbm=767) 4.7 meq/L 3.5-5.1 CHLORIDE (BEAKER) (test wwnr=664) 105 meq/L 98-107 CO2 (BEAKER) (test ezqg=013) 25 meq/L 22-29 BLOOD UREA NITROGEN (BEAKER) (test gkch=024) 20 mg/dL 7-21 CREATININE (BEAKER) (test lnlp=709) 0.80 mg/dL 0.57-1.25 GLUCOSE RANDOM (BEAKER) (test iksa=018) 176 mg/dL 70-105 CALCIUM (BEAKER) (test evlt=779) 9.5 mg/dL 8.4-10.2 EGFR (BEAKER) (test cngl=2052) 69 mL/min/1.73 sq m ESTIMATED GFR IS NOT ACCURATE CREATININE CLEARANCE IN PREDICTING GLOMERULAR FILTRATION RATE. ESTIMATED GFR IS NOT APPLICABLE FOR DIALYSIS PATIENTS. CBC W/PLT COUNT & AUTO [id number] 04:23:00* Test Item Value Reference Range Comments WHITE BLOOD CELL COUNT (BEAKER) (test hhqz=416) 7.1 K/ L 3.5-10.5 RED BLOOD CELL COUNT (BEAKER) (test gftl=595) 2.61 M/ L 3.93-5.22 HEMOGLOBIN (BEAKER) (test yjdu=975) 8.1 GM/DL 11.2-15.7 HEMATOCRIT (BEAKER) (test jxsw=578) 25.2 % 34.1-44.9 MEAN CORPUSCULAR VOLUME (BEAKER) (test otkn=307) 96.6 fL 79.4-94.8 MEAN CORPUSCULAR HEMOGLOBIN (BEAKER) (test qkbt=260) 31.0 pg 25.6-32.2 MEAN CORPUSCULAR HEMOGLOBIN CONC (BEAKER) (test ltxa=349) 32.1 GM/DL 32.2-35.5 RED CELL DISTRIBUTION WIDTH (BEAKER) (test evga=382) 13.8 % 11.7-14.4 PLATELET COUNT (BEAKER) (test dgar=993) 330 K/CU MM 150-450 MEAN PLATELET VOLUME (BEAKER) (test ddon=874) 8.9 fL 9.4-12.3 NUCLEATED RED BLOOD CELLS (BEAKER) (test lkbp=935) 0 /100 WBC 0-0 NEUTROPHILS RELATIVE PERCENT (BEAKER) (test btjc=519) 67 % LYMPHOCYTES RELATIVE PERCENT (BEAKER) (test umbd=329) 19 % MONOCYTES RELATIVE PERCENT (BEAKER) (test edcp=760) 7 % EOSINOPHILS RELATIVE PERCENT (BEAKER) (test fjcy=291) 5 % BASOPHILS RELATIVE PERCENT (BEAKER) (test qcis=245) 1 % NEUTROPHILS ABSOLUTE COUNT (BEAKER) (test zeqh=193) 4.77 K/ L 1.56-6.13 LYMPHOCYTES ABSOLUTE COUNT (BEAKER) (test dpgs=056) 1.34 K/ L 1.18-3.74 MONOCYTES ABSOLUTE COUNT (BEAKER) (test vrpb=736) 0.49 K/ L 0.24-0.36 EOSINOPHILS ABSOLUTE COUNT (BEAKER) (test dhqc=315) 0.33 K/ L 0.04-0.36 BASOPHILS ABSOLUTE COUNT (BEAKER) (test jhss=091) 0.06 K/ L 0.01-0.08 IMMATURE GRANULOCYTES-RELATIVE PERCENT (BEAKER) (test gipz=5966) 2 % 0-1 POCT-GLUCOSE [id number] 22:30:00* Test Item Value Reference Range Comments POC-GLUCOSE METER (BEAKER) (test ermf=2946) 281 mg/dL 70-110 TESTED AT [place] [id number] [place] [address] POCT-GLUCOSE [id number] 17:03:00* Test Item Value Reference Range Comments POC-GLUCOSE METER (BEAKER) (test dzro=0499) 208 mg/dL 70-110 TESTED AT [place] [address] BASIC METABOLIC [id number] 15:48:00* Test Item Value Reference Range Comments SODIUM (BEAKER) (test ybgg=490) 133 meq/L 136-145 POTASSIUM (BEAKER) (test dtgm=457) 4.4 meq/L 3.5-5.1 CHLORIDE (BEAKER) (test tsmz=056) 102 meq/L 98-107 CO2 (BEAKER) (test tlgs=941) 25 meq/L 22-29 BLOOD UREA NITROGEN (BEAKER) (test glzq=183) 19 mg/dL 7-21 CREATININE (BEAKER) (test jieq=863) 0.81 mg/dL 0.57-1.25 GLUCOSE RANDOM (BEAKER) (test ayww=468) 210 mg/dL 70-105 CALCIUM (BEAKER) (test weho=487) 9.2 mg/dL 8.4-10.2 EGFR (BEAKER) (test ocij=6900) 68 mL/min/1.73 sq m ESTIMATED GFR IS NOT ACCURATE CREATININE CLEARANCE IN PREDICTING GLOMERULAR FILTRATION RATE. ESTIMATED GFR IS NOT APPLICABLE FOR DIALYSIS PATIENTS. POCT-GLUCOSE [id number] 13:12:00* Test Item Value Reference Range Comments POC-GLUCOSE METER (BEAKER) (test uwdo=4399) 225 mg/dL 70-110 TESTED AT [place] [id number] POCT-GLUCOSE [id number] 08:12:00* Test Item Value Reference Range Comments POC-GLUCOSE METER (BEAKER) (test qicd=5255) 173 mg/dL 70-110 TESTED AT [place] [address] [id number] 05:09:00* Test Item Value Reference Range Comments MAGNESIUM (BEAKER) (test rgml=760) 1.4 mg/dL 1.6-2.6 BASIC METABOLIC [id number] 05:09:00* Test Item Value Reference Range Comments SODIUM (BEAKER) (test ouag=364) 136 meq/L 136-145 POTASSIUM (BEAKER) (test kigp=871) 4.4 meq/L 3.5-5.1 CHLORIDE (BEAKER) (test ipzt=098) 106 meq/L 98-107 CO2 (BEAKER) (test zbba=576) 25 meq/L 22-29 BLOOD UREA NITROGEN (BEAKER) (test gezc=191) 15 mg/dL 7-21 CREATININE (BEAKER) (test kpjo=063) 0.70 mg/dL 0.57-1.25 GLUCOSE RANDOM (BEAKER) (test vpyk=117) 146 mg/dL 70-105 CALCIUM (BEAKER) (test yjkg=786) 9.5 mg/dL 8.4-10.2 EGFR (BEAKER) (test pbmm=7073) 80 mL/min/1.73 sq m ESTIMATED GFR IS NOT ACCURATE CREATININE CLEARANCE IN PREDICTING GLOMERULAR FILTRATION RATE. ESTIMATED GFR IS NOT APPLICABLE FOR DIALYSIS PATIENTS. CBC W/PLT COUNT & AUTO [id number] 04:51:00* Test Item Value Reference Range Comments WHITE BLOOD CELL COUNT (BEAKER) (test clst=404) 7.6 K/ L 3.5-10.5 RED BLOOD CELL COUNT (BEAKER) (test amid=836) 2.55 M/ L 3.93-5.22 HEMOGLOBIN (BEAKER) (test foen=031) 7.8 GM/DL 11.2-15.7 HEMATOCRIT (BEAKER) (test moag=751) 24.4 % 34.1-44.9 MEAN CORPUSCULAR VOLUME (BEAKER) (test xbbu=871) 95.7 fL 79.4-94.8 MEAN CORPUSCULAR HEMOGLOBIN (BEAKER) (test ykba=504) 30.6 pg 25.6-32.2 MEAN CORPUSCULAR HEMOGLOBIN CONC (BEAKER) (test lxdr=622) 32.0 GM/DL 32.2-35.5 RED CELL DISTRIBUTION WIDTH (BEAKER) (test vakz=437) 13.3 % 11.7-14.4 PLATELET COUNT (BEAKER) (test mklh=562) 359 K/CU MM 150-450 MEAN PLATELET VOLUME (BEAKER) (test ienn=416) 8.8 fL 9.4-12.3 NUCLEATED RED BLOOD CELLS (BEAKER) (test qnxr=632) 0 /100 WBC 0-0 NEUTROPHILS RELATIVE PERCENT (BEAKER) (test enrs=581) 70 % LYMPHOCYTES RELATIVE PERCENT (BEAKER) (test nwdy=334) 16 % MONOCYTES RELATIVE PERCENT (BEAKER) (test qziy=162) 7 % EOSINOPHILS RELATIVE PERCENT (BEAKER) (test impg=500) 5 % BASOPHILS RELATIVE PERCENT (BEAKER) (test mwdi=286) 1 % NEUTROPHILS ABSOLUTE COUNT (BEAKER) (test bdmq=936) 5.30 K/ L 1.56-6.13 LYMPHOCYTES ABSOLUTE COUNT (BEAKER) (test tzcd=174) 1.24 K/ L 1.18-3.74 MONOCYTES ABSOLUTE COUNT (BEAKER) (test ohka=374) 0.50 K/ L 0.24-0.36 EOSINOPHILS ABSOLUTE COUNT (BEAKER) (test orpa=699) 0.34 K/ L 0.04-0.36 BASOPHILS ABSOLUTE COUNT (BEAKER) (test qzbe=321) 0.06 K/ L 0.01-0.08 IMMATURE GRANULOCYTES-RELATIVE PERCENT (BEAKER) (test oreg=2664) 2 % 0-1 POCT-GLUCOSE [id number] 21:35:00* Test Item Value Reference Range Comments POC-GLUCOSE METER (BEAKER) (test czas=8922) 227 mg/dL 70-110 TESTED AT [address] [address] POCT-GLUCOSE [id number] 20:05:00* Test Item Value Reference Range Comments POC-GLUCOSE METER (BEAKER) (test zllg=4563) 210 mg/dL 70-110 TESTED AT [address] [address] BASIC METABOLIC [id number] 17:53:00* Test Item Value Reference Range Comments SODIUM (BEAKER) (test atbr=314) 134 meq/L 136-145 POTASSIUM (BEAKER) (test bcdg=146) 4.5 meq/L 3.5-5.1 CHLORIDE (BEAKER) (test ufyt=968) 104 meq/L 98-107 CO2 (BEAKER) (test zpcj=140) 23 meq/L 22-29 BLOOD UREA NITROGEN (BEAKER) (test uigb=579) 16 mg/dL 7-21 CREATININE (BEAKER) (test fqtj=455) 0.68 mg/dL 0.57-1.25 GLUCOSE RANDOM (BEAKER) (test owrt=653) 174 mg/dL 70-105 CALCIUM (BEAKER) (test zrez=262) 9.6 mg/dL 8.4-10.2 EGFR (BEAKER) (test jrtc=8438) 83 mL/min/1.73 sq m ESTIMATED GFR IS NOT ACCURATE CREATININE CLEARANCE IN PREDICTING GLOMERULAR FILTRATION RATE. ESTIMATED GFR IS NOT APPLICABLE FOR DIALYSIS PATIENTS. POCT-GLUCOSE [id number] 12:48:00* Test Item Value Reference Range Comments POC-GLUCOSE METER (BEAKER) (test hxaq=3775) 213 mg/dL 70-110 TESTED AT [facility] [address] [facility] [address] POCT-GLUCOSE [id number] 08:13:00* Test Item Value Reference Range Comments POC-GLUCOSE METER (BEAKER) (test zrbw=0830) 182 mg/dL 70-110 TESTED AT [place] [id number] [facility] [address] BASIC METABOLIC [id number] 06:21:00* Test Item Value Reference Range Comments SODIUM (BEAKER) (test volu=363) 134 meq/L 136-145 POTASSIUM (BEAKER) (test enbk=920) 4.5 meq/L 3.5-5.1 CHLORIDE (BEAKER) (test iywf=465) 105 meq/L 98-107 CO2 (BEAKER) (test meps=955) 23 meq/L 22-29 BLOOD UREA NITROGEN (BEAKER) (test gaba=013) 15 mg/dL 7-21 CREATININE (BEAKER) (test ssam=716) 0.68 mg/dL 0.57-1.25 GLUCOSE RANDOM (BEAKER) (test uftq=906) 138 mg/dL 70-105 CALCIUM (BEAKER) (test ncft=959) 9.0 mg/dL 8.4-10.2 EGFR (BEAKER) (test ygch=1308) 83 mL/min/1.73 sq m ESTIMATED GFR IS NOT ACCURATE CREATININE CLEARANCE IN PREDICTING GLOMERULAR FILTRATION RATE. ESTIMATED GFR IS NOT APPLICABLE FOR DIALYSIS PATIENTS. [id number] 06:15:00* Test Item Value Reference Range Comments MAGNESIUM (BEAKER) (test rzfe=118) 1.4 mg/dL 1.6-2.6 CBC W/PLT COUNT & AUTO [id number] 05:56:00* Test Item Value Reference Range Comments WHITE BLOOD CELL COUNT (BEAKER) (test wsdu=036) 8.2 K/ L 3.5-10.5 RED BLOOD CELL COUNT (BEAKER) (test krzv=169) 2.51 M/ L 3.93-5.22 HEMOGLOBIN (BEAKER) (test retv=795) 7.6 GM/DL 11.2-15.7 HEMATOCRIT (BEAKER) (test dxqx=717) 24.2 % 34.1-44.9 MEAN CORPUSCULAR VOLUME (BEAKER) (test fmhe=061) 96.4 fL 79.4-94.8 MEAN CORPUSCULAR HEMOGLOBIN (BEAKER) (test vfbs=456) 30.3 pg 25.6-32.2 MEAN CORPUSCULAR HEMOGLOBIN CONC (BEAKER) (test ghoa=529) 31.4 GM/DL 32.2-35.5 RED CELL DISTRIBUTION WIDTH (BEAKER) (test dyfc=673) 13.1 % 11.7-14.4 PLATELET COUNT (BEAKER) (test zgdg=938) 347 K/CU MM 150-450 MEAN PLATELET VOLUME (BEAKER) (test tqpn=740) 9.0 fL 9.4-12.3 NUCLEATED RED BLOOD CELLS (BEAKER) (test moua=699) 0 /100 WBC 0-0 NEUTROPHILS RELATIVE PERCENT (BEAKER) (test rfwk=947) 68 % LYMPHOCYTES RELATIVE PERCENT (BEAKER) (test etst=295) 16 % MONOCYTES RELATIVE PERCENT (BEAKER) (test eixf=341) 7 % EOSINOPHILS RELATIVE PERCENT (BEAKER) (test hxaq=395) 6 % BASOPHILS RELATIVE PERCENT (BEAKER) (test dzxz=567) 1 % NEUTROPHILS ABSOLUTE COUNT (BEAKER) (test gvco=230) 5.62 K/ L 1.56-6.13 LYMPHOCYTES ABSOLUTE COUNT (BEAKER) (test cbcs=546) 1.35 K/ L 1.18-3.74 MONOCYTES ABSOLUTE COUNT (BEAKER) (test idas=491) 0.54 K/ L 0.24-0.36 EOSINOPHILS ABSOLUTE COUNT (BEAKER) (test bhrt=832) 0.49 K/ L 0.04-0.36 BASOPHILS ABSOLUTE COUNT (BEAKER) (test rkzm=610) 0.07 K/ L 0.01-0.08 IMMATURE GRANULOCYTES-RELATIVE PERCENT (BEAKER) (test tokg=7426) 2 % 0-1 BLOOD [id number] 01:00:00* Test Item Value Reference Range Comments CULTURE (BEAKER) (test hmou=3986) No growth in 5 days BLOOD [id number] 01:00:00* Test Item Value Reference Range Comments CULTURE (BEAKER) (test wiuv=9198) No growth in 5 days POCT-GLUCOSE [id number] 21:51:00* Test Item Value Reference Range Comments POC-GLUCOSE METER (BEAKER) (test ynpe=5591) 201 mg/dL 70-110 TESTED AT [facility] [address] [facility] [address] POCT-GLUCOSE [id number] 16:06:00* Test Item Value Reference Range Comments POC-GLUCOSE METER (BEAKER) (test vibz=4017) 183 mg/dL 70-110 TESTED AT [address] [address] POCT-GLUCOSE [id number] 13:20:00* Test Item Value Reference Range Comments POC-GLUCOSE METER (BEAKER) (test wfxu=9086) 285 mg/dL 70-110 TESTED AT [address] [address] [place], ESOPH, SWALLOW FUNCTION, WITH CINE OR [id number] 09:53:00Reason for exam:->dysphagiaFINAL REPORT Modified barium swallow with speech pathology [...] report for further details. Signed: Rafael Solomon MDReport Verified Date/Time: 08/08/2018 09:53:06 Reading Location: [facility] C013X [facility] Consult Reading Room [id number] 06:18:00* Test Item Value Reference Range Comments MAGNESIUM (BEAKER) (test wpsg=772) 1.3 mg/dL 1.6-2.6 BASIC METABOLIC [id number] 06:18:00* Test Item Value Reference Range Comments SODIUM (BEAKER) (test httk=900) 137 meq/L 136-145 POTASSIUM (BEAKER) (test erzg=908) 4.8 meq/L 3.5-5.1 CHLORIDE (BEAKER) (test vbkx=359) 108 meq/L 98-107 CO2 (BEAKER) (test sosw=230) 24 meq/L 22-29 BLOOD UREA NITROGEN (BEAKER) (test jfgt=082) 20 mg/dL 7-21 CREATININE (BEAKER) (test hjcl=543) 0.71 mg/dL 0.57-1.25 GLUCOSE RANDOM (BEAKER) (test ngel=803) 234 mg/dL 70-105 CALCIUM (BEAKER) (test ssxs=907) 9.3 mg/dL 8.4-10.2 EGFR (BEAKER) (test aesj=7086) 79 mL/min/1.73 sq m ESTIMATED GFR IS NOT ACCURATE CREATININE CLEARANCE IN PREDICTING GLOMERULAR FILTRATION RATE. ESTIMATED GFR IS NOT APPLICABLE FOR DIALYSIS PATIENTS. POCT-GLUCOSE [id number] 05:49:00* Test Item Value Reference Range Comments POC-GLUCOSE METER (BEAKER) (test isnk=7308) 293 mg/dL 70-110 TESTED AT [address] [address] POCT-GLUCOSE [id number] 20:45:00* Test Item Value Reference Range Comments POC-GLUCOSE METER (BEAKER) (test jqum=2675) 240 mg/dL 70-110 TESTED AT [address] [address] POCT-GLUCOSE [id number] 18:17:00* Test Item Value Reference Range Comments POC-GLUCOSE METER (BEAKER) (test xgme=2299) 282 mg/dL 70-110 TESTED AT [address] [address] POCT-GLUCOSE [id number] 12:08:00* Test Item Value Reference Range Comments POC-GLUCOSE METER (BEAKER) (test rkgv=4476) 271 mg/dL 70-110 TESTED AT [address] [address] POCT-GLUCOSE [id number] 05:45:00* Test Item Value Reference Range Comments POC-GLUCOSE METER (BEAKER) (test jltx=7290) 247 mg/dL 70-110 TESTED AT [facility] [address] [facility] [address] POCT-GLUCOSE [id number] 05:06:00* Test Item Value Reference Range Comments POC-GLUCOSE METER (BEAKER) (test uqhk=7001) 238 mg/dL 70-110 TESTED AT [address] [address] [id number] 04:55:00* Test Item Value Reference Range Comments MAGNESIUM (BEAKER) (test rixw=340) 1.4 mg/dL 1.6-2.6 BASIC METABOLIC [id number] 04:55:00* Test Item Value Reference Range Comments SODIUM (BEAKER) (test gjnk=748) 137 meq/L 136-145 POTASSIUM (BEAKER) (test wqmx=196) 4.5 meq/L 3.5-5.1 CHLORIDE (BEAKER) (test dugc=179) 106 meq/L 98-107 CO2 (BEAKER) (test ofiu=080) 25 meq/L 22-29 BLOOD UREA NITROGEN (BEAKER) (test nxhl=480) 17 mg/dL 7-21 CREATININE (BEAKER) (test spmm=063) 0.73 mg/dL 0.57-1.25 GLUCOSE RANDOM (BEAKER) (test ztzm=087) 203 mg/dL 70-105 CALCIUM (BEAKER) (test tanw=474) 8.8 mg/dL 8.4-10.2 EGFR (BEAKER) (test difb=7713) 76 mL/min/1.73 sq m ESTIMATED GFR IS NOT ACCURATE CREATININE CLEARANCE IN PREDICTING GLOMERULAR FILTRATION RATE. ESTIMATED GFR IS NOT APPLICABLE FOR DIALYSIS PATIENTS. POCT-GLUCOSE [id number] 18:35:00* Test Item Value Reference Range Comments POC-GLUCOSE METER (BEAKER) (test trir=3258) 266 mg/dL 70-110 TESTED AT [place] [id number] [facility] [address] POCT-GLUCOSE [id number] 18:24:00* Test Item Value Reference Range Comments POC-GLUCOSE METER (BEAKER) (test onkp=1994) 253 mg/dL 70-110 TESTED AT [place] [id number] [facility] [address] POCT-GLUCOSE [id number] 07:03:00* Test Item Value Reference Range Comments POC-GLUCOSE METER (BEAKER) (test zror=0611) 229 mg/dL 70-110 TESTED AT [facility] [address] [facility] [address] [id number] 05:05:00* Test Item Value Reference Range Comments MAGNESIUM (BEAKER) (test gwrl=760) 1.6 mg/dL 1.6-2.6 COMPREHENSIVE METABOLIC [id number] 05:05:00* Test Item Value Reference Range Comments TOTAL PROTEIN (BEAKER) (test tssv=638) 5.1 gm/dL 6.0-8.3 ALBUMIN (BEAKER) (test inuu=0229) 2.7 g/dL 3.5-5.0 ALKALINE PHOSPHATASE (BEAKER) (test tewo=462) 66 U/L 40-150 BILIRUBIN TOTAL (BEAKER) (test rkms=210) 0.4 mg/dL 0.2-1.2 SODIUM (BEAKER) (test wour=442) 136 meq/L 136-145 POTASSIUM (BEAKER) (test vsnc=066) 4.3 meq/L 3.5-5.1 CHLORIDE (BEAKER) (test qptz=944) 106 meq/L 98-107 CO2 (BEAKER) (test xint=060) 26 meq/L 22-29 BLOOD UREA NITROGEN (BEAKER) (test wavl=342) 22 mg/dL 7-21 CREATININE (BEAKER) (test bhux=555) 0.76 mg/dL 0.57-1.25 GLUCOSE RANDOM (BEAKER) (test jrde=591) 188 mg/dL 70-105 CALCIUM (BEAKER) (test lisd=181) 8.8 mg/dL 8.4-10.2 AST (SGOT) (BEAKER) (test wuxq=341) 16 U/L 5-34 ALT (SGPT) (BEAKER) (test fwfc=144) 11 U/L 6-55 EGFR (BEAKER) (test tkid=6288) 73 mL/min/1.73 sq m ESTIMATED GFR IS NOT ACCURATE CREATININE CLEARANCE IN PREDICTING GLOMERULAR FILTRATION RATE. ESTIMATED GFR IS NOT APPLICABLE FOR DIALYSIS PATIENTS. BASIC METABOLIC [id number] 05:05:00* Test Item Value Reference Range Comments SODIUM (BEAKER) (test fblu=487) 136 meq/L 136-145 POTASSIUM (BEAKER) (test mtai=644) 4.3 meq/L 3.5-5.1 CHLORIDE (BEAKER) (test bufe=627) 106 meq/L 98-107 CO2 (BEAKER) (test tzjc=778) 26 meq/L 22-29 BLOOD UREA NITROGEN (BEAKER) (test drug=266) 22 mg/dL 7-21 CREATININE (BEAKER) (test fxsn=556) 0.76 mg/dL 0.57-1.25 GLUCOSE RANDOM (BEAKER) (test pknz=988) 188 mg/dL 70-105 CALCIUM (BEAKER) (test ipao=489) 8.8 mg/dL 8.4-10.2 EGFR (BEAKER) (test ooqd=6273) 73 mL/min/1.73 sq m ESTIMATED GFR IS NOT ACCURATE CREATININE CLEARANCE IN PREDICTING GLOMERULAR FILTRATION RATE. ESTIMATED GFR IS NOT APPLICABLE FOR DIALYSIS PATIENTS. CBC W/PLT COUNT & AUTO [id number] 05:05:00* Test Item Value Reference Range Comments WHITE BLOOD CELL COUNT (BEAKER) (test iibk=935) 6.9 K/ L 3.5-10.5 RED BLOOD CELL COUNT (BEAKER) (test jmdr=391) 2.18 M/ L 3.93-5.22 HEMOGLOBIN (BEAKER) (test othn=461) 6.6 GM/DL 11.2-15.7 HEMATOCRIT (BEAKER) (test gocf=441) 20.2 % 34.1-44.9 MEAN CORPUSCULAR VOLUME (BEAKER) (test narq=203) 92.7 fL 79.4-94.8 MEAN CORPUSCULAR HEMOGLOBIN (BEAKER) (test ntuk=903) 30.3 pg 25.6-32.2 MEAN CORPUSCULAR HEMOGLOBIN CONC (BEAKER) (test rqbg=163) 32.7 GM/DL 32.2-35.5 RED CELL DISTRIBUTION WIDTH (BEAKER) (test iibd=151) 12.9 % 11.7-14.4 PLATELET COUNT (BEAKER) (test wffr=800) 270 K/CU MM 150-450 MEAN PLATELET VOLUME (BEAKER) (test vmdg=589) 9.4 fL 9.4-12.3 NUCLEATED RED BLOOD CELLS (BEAKER) (test qxpe=201) 0 /100 WBC 0-0 NEUTROPHILS RELATIVE PERCENT (BEAKER) (test mlwq=482) 75 % LYMPHOCYTES RELATIVE PERCENT (BEAKER) (test afny=349) 12 % MONOCYTES RELATIVE PERCENT (BEAKER) (test mnne=671) 7 % EOSINOPHILS RELATIVE PERCENT (BEAKER) (test mflc=351) 5 % BASOPHILS RELATIVE PERCENT (BEAKER) (test ucws=309) 1 % NEUTROPHILS ABSOLUTE COUNT (BEAKER) (test nowi=385) 5.18 K/ L 1.56-6.13 LYMPHOCYTES ABSOLUTE COUNT (BEAKER) (test mybt=065) 0.83 K/ L 1.18-3.74 MONOCYTES ABSOLUTE COUNT (BEAKER) (test mqxx=859) 0.46 K/ L 0.24-0.36 EOSINOPHILS ABSOLUTE COUNT (BEAKER) (test eqpn=453) 0.33 K/ L 0.04-0.36 BASOPHILS ABSOLUTE COUNT (BEAKER) (test mdbx=550) 0.04 K/ L 0.01-0.08 IMMATURE GRANULOCYTES-RELATIVE PERCENT (BEAKER) (test rtcm=0175) 1 % 0-1 POCT-GLUCOSE [id number] 00:46:00* Test Item Value Reference Range Comments POC-GLUCOSE METER (BEAKER) (test zysq=0911) 209 mg/dL 70-110 TESTED AT [place] [id number] [facility] [address] POCT-GLUCOSE [id number] 17:33:00* Test Item Value Reference Range Comments POC-GLUCOSE METER (BEAKER) (test ptoc=1788) 201 mg/dL 70-110 TESTED AT [address] [address] BASIC METABOLIC [id number] 12:38:00* Test Item Value Reference Range Comments SODIUM (BEAKER) (test lnsx=414) 135 meq/L 136-145 POTASSIUM (BEAKER) (test htno=145) 3.9 meq/L 3.5-5.1 CHLORIDE (BEAKER) (test opxd=812) 102 meq/L 98-107 CO2 (BEAKER) (test wycg=536) 26 meq/L 22-29 BLOOD UREA NITROGEN (BEAKER) (test uhuv=431) 31 mg/dL 7-21 CREATININE (BEAKER) (test jgbs=390) 0.99 mg/dL 0.57-1.25 GLUCOSE RANDOM (BEAKER) (test zdbf=470) 188 mg/dL 70-105 CALCIUM (BEAKER) (test cfml=011) 8.8 mg/dL 8.4-10.2 EGFR (BEAKER) (test pbvp=9193) 54 mL/min/1.73 sq m ESTIMATED GFR IS NOT ACCURATE CREATININE CLEARANCE IN PREDICTING GLOMERULAR FILTRATION RATE. ESTIMATED GFR IS NOT APPLICABLE FOR DIALYSIS PATIENTS. [id number] 12:31:00* Test Item Value Reference Range Comments PROTIME (BEAKER) (test lfwo=088) 14.0 seconds 11.7-14.7 INR (BEAKER) (test kkoy=525) 1.1 <=5.9 PARTIAL THROMBOPLASTIN TIME (BEAKER) (test oyib=796) 55.8 seconds 22.5-36.0 RECOMMENDED COUMADIN/WARFARIN INR THERAPY RANGESSTANDARD DOSE: 2.0 - 3.0 Inclu ann-marie: PROPHYLAXIS for venous thrombosis, systemic embolization; TREATMENT for jerrod ous thrombosis and/or pulmonary embolus.HIGH RISK: Target INR is 2.5-3.5 for pat ients with mechanical heart valves.HEMOGLOBIN AND [id number] 12:21:00 * Test Item Value Reference Range Comments HEMOGLOBIN (BEAKER) (test zikj=273) 6.7 GM/DL 11.2-15.7 HEMATOCRIT (BEAKER) (test svty=553) 20.2 % 34.1-44.9 POCT-GLUCOSE [id number] 12:20:00* Test Item Value Reference Range Comments POC-GLUCOSE METER (BEAKER) (test vxqr=5038) 221 mg/dL 70-110 TESTED AT [facility] [address] [facility] [address] POCT-GLUCOSE [id number] 08:36:00* Test Item Value Reference Range Comments POC-GLUCOSE METER (BEAKER) (test yhmc=5502) 195 mg/dL 70-110 TESTED AT [facility] [address] [facility] [address] CBC W/PLT COUNT & AUTO [id number] 06:29:00* Test Item Value Reference Range Comments WHITE BLOOD CELL COUNT (BEAKER) (test bdfr=126) 7.1 K/ L 3.5-10.5 RED BLOOD CELL COUNT (BEAKER) (test fsys=502) 2.08 M/ L 3.93-5.22 HEMOGLOBIN (BEAKER) (test hbue=074) 6.3 GM/DL 11.2-15.7 HEMATOCRIT (BEAKER) (test myfp=016) 19.2 % 34.1-44.9 MEAN CORPUSCULAR VOLUME (BEAKER) (test arlc=975) 92.3 fL 79.4-94.8 MEAN CORPUSCULAR HEMOGLOBIN (BEAKER) (test ujxq=480) 30.3 pg 25.6-32.2 MEAN CORPUSCULAR HEMOGLOBIN CONC (BEAKER) (test xnbg=171) 32.8 GM/DL 32.2-35.5 RED CELL DISTRIBUTION WIDTH (BEAKER) (test unwa=472) 12.9 % 11.7-14.4 PLATELET COUNT (BEAKER) (test vrdj=933) 246 K/CU MM 150-450 MEAN PLATELET VOLUME (BEAKER) (test ityr=843) 9.8 fL 9.4-12.3 NUCLEATED RED BLOOD CELLS (BEAKER) (test dcdg=603) 0 /100 WBC 0-0 NEUTROPHILS RELATIVE PERCENT (BEAKER) (test kccw=013) 78 % LYMPHOCYTES RELATIVE PERCENT (BEAKER) (test bmsl=111) 10 % MONOCYTES RELATIVE PERCENT (BEAKER) (test nayh=197) 7 % EOSINOPHILS RELATIVE PERCENT (BEAKER) (test txao=639) 3 % BASOPHILS RELATIVE PERCENT (BEAKER) (test lvev=962) 1 % NEUTROPHILS ABSOLUTE COUNT (BEAKER) (test vdxa=155) 5.53 K/ L 1.56-6.13 LYMPHOCYTES ABSOLUTE COUNT (BEAKER) (test qsgs=282) 0.71 K/ L 1.18-3.74 MONOCYTES ABSOLUTE COUNT (BEAKER) (test yygt=401) 0.51 K/ L 0.24-0.36 EOSINOPHILS ABSOLUTE COUNT (BEAKER) (test gail=765) 0.23 K/ L 0.04-0.36 BASOPHILS ABSOLUTE COUNT (BEAKER) (test neuq=609) 0.05 K/ L 0.01-0.08 IMMATURE GRANULOCYTES-RELATIVE PERCENT (BEAKER) (test lozt=9623) 1 % 0-1 [id number] 05:36:00* Test Item Value Reference Range Comments MAGNESIUM (BEAKER) (test zgbn=807) 1.8 mg/dL 1.6-2.6 COMPREHENSIVE METABOLIC [id number] 05:36:00* Test Item Value Reference Range Comments TOTAL PROTEIN (BEAKER) (test nymv=661) 5.2 gm/dL 6.0-8.3 ALBUMIN (BEAKER) (test vulu=1748) 2.8 g/dL 3.5-5.0 ALKALINE PHOSPHATASE (BEAKER) (test wzab=289) 57 U/L 40-150 BILIRUBIN TOTAL (BEAKER) (test pgvn=792) 0.6 mg/dL 0.2-1.2 SODIUM (BEAKER) (test myjm=491) 134 meq/L 136-145 POTASSIUM (BEAKER) (test qium=151) 4.3 meq/L 3.5-5.1 CHLORIDE (BEAKER) (test bdru=696) 103 meq/L 98-107 CO2 (BEAKER) (test efrs=803) 24 meq/L 22-29 BLOOD UREA NITROGEN (BEAKER) (test qgjb=787) 39 mg/dL 7-21 CREATININE (BEAKER) (test tqab=796) 1.04 mg/dL 0.57-1.25 GLUCOSE RANDOM (BEAKER) (test teik=161) 144 mg/dL 70-105 CALCIUM (BEAKER) (test sblz=252) 8.8 mg/dL 8.4-10.2 AST (SGOT) (BEAKER) (test hgnv=685) 18 U/L 5-34 ALT (SGPT) (BEAKER) (test bmwc=161) 11 U/L 6-55 EGFR (BEAKER) (test ueiw=7868) 51 mL/min/1.73 sq m ESTIMATED GFR IS NOT ACCURATE CREATININE CLEARANCE IN PREDICTING GLOMERULAR FILTRATION RATE. ESTIMATED GFR IS NOT APPLICABLE FOR DIALYSIS PATIENTS. BASIC METABOLIC [id number] 05:36:00* Test Item Value Reference Range Comments SODIUM (BEAKER) (test pzuw=536) 134 meq/L 136-145 POTASSIUM (BEAKER) (test vnzf=477) 4.3 meq/L 3.5-5.1 CHLORIDE (BEAKER) (test anot=773) 103 meq/L 98-107 CO2 (BEAKER) (test rdvv=682) 24 meq/L 22-29 BLOOD UREA NITROGEN (BEAKER) (test ekvu=089) 39 mg/dL 7-21 CREATININE (BEAKER) (test pcfv=054) 1.04 mg/dL 0.57-1.25 GLUCOSE RANDOM (BEAKER) (test rwxi=054) 144 mg/dL 70-105 CALCIUM (BEAKER) (test efwq=256) 8.8 mg/dL 8.4-10.2 EGFR (BEAKER) (test tgiq=8013) 51 mL/min/1.73 sq m ESTIMATED GFR IS NOT ACCURATE CREATININE CLEARANCE IN PREDICTING GLOMERULAR FILTRATION RATE. ESTIMATED GFR IS NOT APPLICABLE FOR DIALYSIS PATIENTS. CBC W/PLT COUNT & AUTO [id number] 04:11:00* Test Item Value Reference Range Comments WHITE BLOOD CELL COUNT (BEAKER) (test bvwz=672) 7.4 K/ L 3.5-10.5 RED BLOOD CELL COUNT (BEAKER) (test hrkd=604) 2.22 M/ L 3.93-5.22 HEMOGLOBIN (BEAKER) (test qzxt=920) 6.9 GM/DL 11.2-15.7 HEMATOCRIT (BEAKER) (test kgiu=938) 20.7 % 34.1-44.9 MEAN CORPUSCULAR VOLUME (BEAKER) (test dveq=907) 93.2 fL 79.4-94.8 MEAN CORPUSCULAR HEMOGLOBIN (BEAKER) (test fomb=445) 31.1 pg 25.6-32.2 MEAN CORPUSCULAR HEMOGLOBIN CONC (BEAKER) (test vqgt=104) 33.3 GM/DL 32.2-35.5 RED CELL DISTRIBUTION WIDTH (BEAKER) (test szkk=437) 13.1 % 11.7-14.4 PLATELET COUNT (BEAKER) (test grcw=254) 251 K/CU MM 150-450 MEAN PLATELET VOLUME (BEAKER) (test hviq=378) 10.0 fL 9.4-12.3 NUCLEATED RED BLOOD CELLS (BEAKER) (test vtwh=534) 0 /100 WBC 0-0 NEUTROPHILS RELATIVE PERCENT (BEAKER) (test pkcy=182) 79 % LYMPHOCYTES RELATIVE PERCENT (BEAKER) (test qjrz=811) 9 % MONOCYTES RELATIVE PERCENT (BEAKER) (test tpil=048) 8 % EOSINOPHILS RELATIVE PERCENT (BEAKER) (test fqba=603) 3 % BASOPHILS RELATIVE PERCENT (BEAKER) (test ysgn=296) 1 % NEUTROPHILS ABSOLUTE COUNT (BEAKER) (test ajry=345) 5.81 K/ L 1.56-6.13 LYMPHOCYTES ABSOLUTE COUNT (BEAKER) (test lgev=172) 0.66 K/ L 1.18-3.74 MONOCYTES ABSOLUTE COUNT (BEAKER) (test nrjz=683) 0.58 K/ L 0.24-0.36 EOSINOPHILS ABSOLUTE COUNT (BEAKER) (test ulch=053) 0.23 K/ L 0.04-0.36 BASOPHILS ABSOLUTE COUNT (BEAKER) (test yyjz=781) 0.04 K/ L 0.01-0.08 IMMATURE GRANULOCYTES-RELATIVE PERCENT (BEAKER) (test uhoh=8293) 1 % 0-1 POCT-GLUCOSE [id number] 00:55:00* Test Item Value Reference Range Comments POC-GLUCOSE METER (BEAKER) (test utek=1791) 116 mg/dL 70-110 TESTED AT [address] [address] POCT-GLUCOSE [id number] 17:19:00* Test Item Value Reference Range Comments POC-GLUCOSE METER (BEAKER) (test xwnt=0131) 146 mg/dL 70-110 TESTED AT [address] [address] BASIC METABOLIC [id number] 15:23:00* Test Item Value Reference Range Comments SODIUM (BEAKER) (test dxgx=885) 133 meq/L 136-145 POTASSIUM (BEAKER) (test tmyk=797) 4.7 meq/L 3.5-5.1 CHLORIDE (BEAKER) (test aedv=929) 102 meq/L 98-107 CO2 (BEAKER) (test ysgi=496) 24 meq/L 22-29 BLOOD UREA NITROGEN (BEAKER) (test fzbt=338) 50 mg/dL 7-21 CREATININE (BEAKER) (test hzwk=178) 1.56 mg/dL 0.57-1.25 GLUCOSE RANDOM (BEAKER) (test ygok=409) 125 mg/dL 70-105 CALCIUM (BEAKER) (test nlcp=557) 8.9 mg/dL 8.4-10.2 EGFR (BEAKER) (test dwjl=1588) 32 mL/min/1.73 sq m ESTIMATED GFR IS NOT ACCURATE CREATININE CLEARANCE IN PREDICTING GLOMERULAR FILTRATION RATE. ESTIMATED GFR IS NOT APPLICABLE FOR DIALYSIS PATIENTS. POCT-GLUCOSE [id number] 12:56:00* Test Item Value Reference Range Comments POC-GLUCOSE METER (BEAKER) (test pmtq=5075) 155 mg/dL 70-110 TESTED AT [facility] [address] [facility] [address] RAD, ABDOMEN/KUB, 1 VIEW [id number] 12:40:00Reason for exam:->Corpak Placement FINAL REPORT Abdomen one view Comparison: None. Reason fo r exam: Corpak Placement Findings: Tip of Corpak is slightly coiled in the stom ach, the tip points cephalad and projects over the gastric body. Bowel gas patte rn is nonspecific, no free air is identified. Signed: Latrice Antoineeport Verified Date/Time: 08/04/2018 12:40:57 Reading Location: [facility] Room -BLOOD GASES, [id number] 07:34:00* Test Item Value Reference Range Comments TEMP, CELSIUS-POC (BEAKER) (test aeab=1863) 37.0 FIO2-POC (BEAKER) (test hpzw=2005) TESTED AT [facility] [address] [facility] [address] PH, ARTERIAL-POC (BEAKER) (test vrcp=2663) 7.289 7.350-7.450 PCO2, ARTERIAL-POC (BEAKER) (test vlby=9876) 39.1 mm Hg 35.0-45.0 PO2, ARTERIAL-POC (BEAKER) (test okrs=5232) 73.0 mm Hg 80.0-90.0 SO2, ARTERIAL-POC (BEAKER) (test kwzq=5079) 93.0 % 96.0-97.0 HCO3, ARTERIAL-POC (BEAKER) (test ldvw=6246) 18.7 meq/L 21.0-29.0 BASE EXCESS, ARTERIAL-POC (BEAKER) (test itbq=9909) -8.0 meq/L -2.0-3.0 [id number] 07:34:00* Test Item Value Reference Range Comments POC-SODIUM (BEAKER) (test qvsl=8907) 128 meq/L 135-148 TESTED AT [place] [id number] [facility] [address] [id number] 07:34:00* Test Item Value Reference Range Comments POC-POTASSIUM (BEAKER) (test znpd=2782) 5.6 meq/L 3.6-5.5 TESTED AT [address] [address] [id number] 07:34:00* Test Item Value Reference Range Comments POC-GLUCOSE (BEAKER) (test esmy=2499) 132 mg/dL 70-110 TESTED AT [address] [address] POCT-CALCIUM [id number] 07:34:00* Test Item Value Reference Range Comments POC-CALCIUM IONIZED (BEAKER) (test emkf=7064) 1.28 mmol/L 1.12-1.27 TESTED AT [address] [address] [id number] 07:34:00* Test Item Value Reference Range Comments POC-HEMATOCRIT (BEAKER) (test kzol=5252) 19 % 36-45 TESTED AT [place] [id number] 07:34:00* Test Item Value Reference Range Comments POC-HEMOGLOBIN (BEAKER) (test lmxk=7824) 6.5 g/dL 12.0-15.0 TESTED AT [address] [address]YMEWIK AT [address] [address] POCT-GLUCOSE [id number] 06:46:00* Test Item Value Reference Range Comments POC-GLUCOSE METER (BEAKER) (test muqh=2197) 140 mg/dL 70-110 TESTED AT [address] [address] [id number] 05:06:00* Test Item Value Reference Range Comments CORTISOL, TOTAL (BEAKER) (test vwhc=4836) 10.0 ug/dL 3.7-19.4 [id number] 05:05:00* Test Item Value Reference Range Comments FERRITIN (BEAKER) (test kwsm=994) 219 ng/mL 5-275 TSH/FREE T4 IF [id number] 05:05:00* Test Item Value Reference Range Comments THYROID STIMULATING HORMONE (BEAKER) (test icsl=101) 0.56 uIU/mL 0.35-4.94 IRON, TIBC, % SAT. (WITHOUT FERRITIN)2018-08-04 04:51:00* Test Item Value Reference Range Comments IRON (BEAKER) (test upxt=550) 14.0 ug/dL 40.0-160.0 TOTAL IRON BINDING CAPACITY (BEAKER) (test izcd=270) 230 ug/dL 250-450 IRON % SATURATION (2) (BEAKER) (test etav=2456) 6 % 20-55 COMPREHENSIVE METABOLIC [id number] 04:49:00* Test Item Value Reference Range Comments TOTAL PROTEIN (BEAKER) (test mslk=246) 6.3 gm/dL 6.0-8.3 ALBUMIN (BEAKER) (test chun=2053) 3.4 g/dL 3.5-5.0 ALKALINE PHOSPHATASE (BEAKER) (test lcwq=038) 55 U/L 40-150 BILIRUBIN TOTAL (BEAKER) (test ixky=865) 0.6 mg/dL 0.2-1.2 SODIUM (BEAKER) (test axfo=337) 131 meq/L 136-145 POTASSIUM (BEAKER) (test fvwd=385) 5.2 meq/L 3.5-5.1 CHLORIDE (BEAKER) (test wadf=776) 101 meq/L 98-107 CO2 (BEAKER) (test gsgw=001) 21 meq/L 22-29 BLOOD UREA NITROGEN (BEAKER) (test fbkg=227) 52 mg/dL 7-21 CREATININE (BEAKER) (test ahak=557) 2.23 mg/dL 0.57-1.25 GLUCOSE RANDOM (BEAKER) (test ikbr=115) 112 mg/dL 70-105 CALCIUM (BEAKER) (test grof=850) 9.4 mg/dL 8.4-10.2 AST (SGOT) (BEAKER) (test kntz=539) 17 U/L 5-34 ALT (SGPT) (BEAKER) (test orjb=995) 13 U/L 6-55 EGFR (BEAKER) (test bqyf=4740) 21 mL/min/1.73 sq m ESTIMATED GFR IS NOT ACCURATE CREATININE CLEARANCE IN PREDICTING GLOMERULAR FILTRATION RATE. ESTIMATED GFR IS NOT APPLICABLE FOR DIALYSIS PATIENTS. CBC W/PLT COUNT & AUTO [id number] 04:23:00* Test Item Value Reference Range Comments WHITE BLOOD CELL COUNT (BEAKER) (test wljf=996) 9.9 K/ L 3.5-10.5 RED BLOOD CELL COUNT (BEAKER) (test jyyp=648) 2.58 M/ L 3.93-5.22 HEMOGLOBIN (BEAKER) (test lpll=590) 8.0 GM/DL 11.2-15.7 HEMATOCRIT (BEAKER) (test mgbd=630) 24.5 % 34.1-44.9 MEAN CORPUSCULAR VOLUME (BEAKER) (test qxkd=948) 95.0 fL 79.4-94.8 MEAN CORPUSCULAR HEMOGLOBIN (BEAKER) (test uoeb=897) 31.0 pg 25.6-32.2 MEAN CORPUSCULAR HEMOGLOBIN CONC (BEAKER) (test vowb=908) 32.7 GM/DL 32.2-35.5 RED CELL DISTRIBUTION WIDTH (BEAKER) (test lika=225) 12.9 % 11.7-14.4 PLATELET COUNT (BEAKER) (test zbwe=092) 258 K/CU MM 150-450 MEAN PLATELET VOLUME (BEAKER) (test vqep=691) 9.8 fL 9.4-12.3 NUCLEATED RED BLOOD CELLS (BEAKER) (test ukhy=119) 0 /100 WBC 0-0 NEUTROPHILS RELATIVE PERCENT (BEAKER) (test lyvd=109) 78 % LYMPHOCYTES RELATIVE PERCENT (BEAKER) (test ccvf=392) 8 % MONOCYTES RELATIVE PERCENT (BEAKER) (test nupf=684) 9 % EOSINOPHILS RELATIVE PERCENT (BEAKER) (test phkl=084) 4 % BASOPHILS RELATIVE PERCENT (BEAKER) (test jvos=090) 1 % NEUTROPHILS ABSOLUTE COUNT (BEAKER) (test rxbu=645) 7.74 K/ L 1.56-6.13 LYMPHOCYTES ABSOLUTE COUNT (BEAKER) (test hjlh=808) 0.79 K/ L 1.18-3.74 MONOCYTES ABSOLUTE COUNT (BEAKER) (test qhwm=481) 0.85 K/ L 0.24-0.36 EOSINOPHILS ABSOLUTE COUNT (BEAKER) (test bnpi=533) 0.40 K/ L 0.04-0.36 BASOPHILS ABSOLUTE COUNT (BEAKER) (test xnjx=451) 0.05 K/ L 0.01-0.08 IMMATURE GRANULOCYTES-RELATIVE PERCENT (BEAKER) (test poxy=1165) 1 % 0-1 POCT-GLUCOSE [id number] 00:23:00* Test Item Value Reference Range Comments POC-GLUCOSE METER (BEAKER) (test jgzd=7767) 159 mg/dL 70-110 TESTED AT [facility] [address] [facility] [address] URINALYSIS W/ REFLEX URINE [id number] 21:31:00* Test Item Value Reference Range Comments COLOR (BEAKER) (test aktz=086) Yellow CLARITY (BEAKER) (test raba=906) Clear SPECIFIC GRAVITY UA (BEAKER) (test eczx=722) 1.038 1.001-1.035 PH UA (BEAKER) (test ihql=972) 5.0 5.0-8.0 PROTEIN UA (BEAKER) (test lhwp=231) 10 mg/dL Negative GLUCOSE UA (BEAKER) (test ivyn=812) Negative Negative KETONES UA (BEAKER) (test adwf=617) Negative Negative BILIRUBIN UA (BEAKER) (test vasw=093) Negative Negative BLOOD UA (BEAKER) (test gppj=608) Negative Negative NITRITE UA (BEAKER) (test pacs=870) Negative Negative LEUKOCYTE ESTERASE UA (BEAKER) (test nhqb=184) Negative Negative UROBILINOGEN UA (BEAKER) (test lsjw=587) 0.2 mg/dL 0.2-1.0 RBC UA (BEAKER) (test nvoe=626) 1 /HPF WBC UA (BEAKER) (test luin=528) 0 /HPF SQUAMOUS EPITHELIAL (BEAKER) (test olcw=200) 1 /HPF SOURCE(BEAKER) (test cvzv=0154) RAD, CHEST, 1 VIEW, NON [id number] 21:10:00Reason for exam:->eval for sepsisShould this be performed at the bedside?->YesFINAL REPORT Chest one view AP 08/03/2018 9:10 PM CLINICAL INDICATION: eval for sepsis COMPARISON: 08/03/2018 at 1342 IMPRESSION: The lungs are clear, save for bibasilar linear atelectasis. Cardiomediastinal contours are within normal limits. The central pulmonary vasculature is not engorged. Signed: Mazin Camara Verified Date/Time: 08/03/2018 21:10:54 Reading Location: [facility] Radiology Reading Room ONIN [id number] 18:50:00* Test Item Value Reference Range Comments TROPONIN I (BEAKER) (test ddxi=962) < ng/mL 0.00-0.03 Troponin I (TnI) levels must be interpreted in the context of the presenting sym ptoms and the clinical findings. Elevated TnI levels indicate myocardial damage, but are not specific for ischemic heart disease. Elevated TnI levels are seen in patients with other cardiac conditions (including myocarditis and congestive h eart failure), and slight TnI elevations occur in patients with other conditions , including sepsis, renal failure, acidosis, acute neurological disease, and per sistent tachyarrhythmia.COMPREHENSIVE METABOLIC [id number] 18:46:00* Test Item Value Reference Range Comments TOTAL PROTEIN (BEAKER) (test dlob=881) 5.7 gm/dL 6.0-8.3 ALBUMIN (BEAKER) (test zdgy=3995) 3.2 g/dL 3.5-5.0 ALKALINE PHOSPHATASE (BEAKER) (test llsb=169) 50 U/L 40-150 BILIRUBIN TOTAL (BEAKER) (test rudb=705) 0.6 mg/dL 0.2-1.2 SODIUM (BEAKER) (test lrtf=067) 130 meq/L 136-145 POTASSIUM (BEAKER) (test dhcs=251) 5.5 meq/L 3.5-5.1 CHLORIDE (BEAKER) (test fmrn=414) 105 meq/L 98-107 CO2 (BEAKER) (test dega=575) 19 meq/L 22-29 BLOOD UREA NITROGEN (BEAKER) (test jbou=477) 48 mg/dL 7-21 CREATININE (BEAKER) (test zmon=677) 2.22 mg/dL 0.57-1.25 GLUCOSE RANDOM (BEAKER) (test idbp=008) 124 mg/dL 70-105 CALCIUM (BEAKER) (test iugk=423) 8.7 mg/dL 8.4-10.2 AST (SGOT) (BEAKER) (test vujo=791) 15 U/L 5-34 ALT (SGPT) (BEAKER) (test dvje=978) 12 U/L 6-55 EGFR (BEAKER) (test qgif=6215) 21 mL/min/1.73 sq m ESTIMATED GFR IS NOT ACCURATE CREATININE CLEARANCE IN PREDICTING GLOMERULAR FILTRATION RATE. ESTIMATED GFR IS NOT APPLICABLE FOR DIALYSIS PATIENTS. [id number] 18:44:00* Test Item Value Reference Range Comments SODIUM (BEAKER) (test mkru=608) 130 meq/L 136-145 [id number] 18:35:00* Test Item Value Reference Range Comments AMMONIA (BEAKER) (test qkyp=091) 38 mol/L 18-72 CBC W/PLT COUNT & AUTO [id number] 18:28:00* Test Item Value Reference Range Comments WHITE BLOOD CELL COUNT (BEAKER) (test ljub=739) 11.1 K/ L 3.5-10.5 RED BLOOD CELL COUNT (BEAKER) (test zbsw=826) 2.28 M/ L 3.93-5.22 HEMOGLOBIN (BEAKER) (test waih=708) 7.0 GM/DL 11.2-15.7 HEMATOCRIT (BEAKER) (test voyp=640) 21.9 % 34.1-44.9 MEAN CORPUSCULAR VOLUME (BEAKER) (test dvip=047) 96.1 fL 79.4-94.8 MEAN CORPUSCULAR HEMOGLOBIN (BEAKER) (test lyic=199) 30.7 pg 25.6-32.2 MEAN CORPUSCULAR HEMOGLOBIN CONC (BEAKER) (test mrdr=730) 32.0 GM/DL 32.2-35.5 RED CELL DISTRIBUTION WIDTH (BEAKER) (test fxuj=816) 13.0 % 11.7-14.4 PLATELET COUNT (BEAKER) (test eijx=807) 247 K/CU MM 150-450 MEAN PLATELET VOLUME (BEAKER) (test arxe=178) 9.9 fL 9.4-12.3 NUCLEATED RED BLOOD CELLS (BEAKER) (test jvbb=684) 0 /100 WBC 0-0 NEUTROPHILS RELATIVE PERCENT (BEAKER) (test qpuu=491) 80 % LYMPHOCYTES RELATIVE PERCENT (BEAKER) (test wrng=002) 7 % MONOCYTES RELATIVE PERCENT (BEAKER) (test hjce=004) 8 % EOSINOPHILS RELATIVE PERCENT (BEAKER) (test nxhf=098) 4 % BASOPHILS RELATIVE PERCENT (BEAKER) (test dfcx=729) 0 % NEUTROPHILS ABSOLUTE COUNT (BEAKER) (test lhod=589) 8.94 K/ L 1.56-6.13 LYMPHOCYTES ABSOLUTE COUNT (BEAKER) (test yxzc=204) 0.79 K/ L 1.18-3.74 MONOCYTES ABSOLUTE COUNT (BEAKER) (test krjq=849) 0.88 K/ L 0.24-0.36 EOSINOPHILS ABSOLUTE COUNT (BEAKER) (test mash=836) 0.40 K/ L 0.04-0.36 BASOPHILS ABSOLUTE COUNT (BEAKER) (test jepq=043) 0.05 K/ L 0.01-0.08 IMMATURE GRANULOCYTES-RELATIVE PERCENT (BEAKER) (test tbbd=6765) 1 % 0-1 POCT-LACTIC ACID, [id number] 18:06:00* Test Item Value Reference Range Comments POC-LACTIC ACID, VENOUS (BEAKER) (test viix=0012) 0.4 mmol/L 0.9-1.7 TESTED AT [address] [address] POCT-BLOOD GASES, [id number] 18:06:00* Test Item Value Reference Range Comments TEMP, CELSIUS-POC (BEAKER) (test vfkr=0512) 37.0 FIO2-POC (BEAKER) (test qdgp=9852) TESTED AT [address] [address] PH, VENOUS-POC (BEAKER) (test eywn=1706) 7.237 7.320-7.420 PCO2, VENOUS-POC (BEAKER) (test eegx=1320) 47.5 mm Hg 41.0-51.0 PO2, VENOUS-POC (BEAKER) (test hpdo=0653) 13.0 mm Hg 25.0-40.0 SO2, VENOUS-POC (BEAKER) (test vxfe=2879) 12.0 % 40.0-70.0 HCO3, VENOUS-POC (BEAKER) (test wwgd=4779) 20.2 meq/L 21.0-29.0 BASE EXCESS, VENOUS-POC (BEAKER) (test kwvu=5781) -7.0 meq/L -2.0-3.0 [id number] 18:06:00* Test Item Value Reference Range Comments POC-SODIUM (BEAKER) (test uiwv=1614) 131 meq/L 135-148 TESTED AT [place] [id number] 18:06:00* Test Item Value Reference Range Comments POC-POTASSIUM (BEAKER) (test lmst=4429) 5.5 meq/L 3.6-5.5 TESTED AT [place] [id number] 18:06:00* Test Item Value Reference Range Comments POC-GLUCOSE (BEAKER) (test waqn=1930) 126 mg/dL 70-110 TESTED AT [place] [id number] POCT-CALCIUM [id number] 18:06:00* Test Item Value Reference Range Comments POC-CALCIUM IONIZED (BEAKER) (test abpf=1555) 1.26 mmol/L 1.12-1.27 TESTED AT [place] [id number] 18:06:00* Test Item Value Reference Range Comments POC-HEMATOCRIT (BEAKER) (test qnad=7002) 21 % 36-45 TESTED AT [place] [id number] [id number] 18:06:00* Test Item Value Reference Range Comments POC-HEMOGLOBIN (BEAKER) (test mavj=3486) 7.1 g/dL 12.0-15.0 TESTED AT [place] [id number] AT [place] [address] POCT-GLUCOSE [id number] 16:36:00* Test Item Value Reference Range Comments POC-GLUCOSE METER (BEAKER) (test fhum=7942) 160 mg/dL 70-110 TESTED AT [place] [id number] CT, EXTREMITY, LOWER WITHOUT CONTRAST, [id number] 16:17:00Call results to [facility]-[phone] of the left lower extremity without contrast History: Upper leg trauma, neurovasc/lig/tendon inj suspectedenlarging hematoma? Comparisons: No priors Technique: CT of the left thigh was performed without contrast. Axial images were generated as were multiplanar reformatted images in the coronal and sagittal planes. This exam was performed according to our departmental dose optimization program which includes automated exposure control, adjustment of the mA and/or kV according to patient's size and/or use of iterative reconstructive technique. Findings: No evidence of acute fracture, or dislocation. There is mild degenerative change at the left hip, and degenerative changes are also seen at the SI joints, and symphysis pubis. There is lateral subcutaneous edema of the left thigh, and a subcutaneous hematoma is seen laterally in the left upper thigh measuring 7.1 x 5.3 x 10 cm. Visualized musculature appear unremarkable. Mild degree of peripheral vascular calcifications are noted. Within the pelvis, there is contrast in the bladder. Uterus and adnexa are unremarkable. There is colonic diverticulosis. IMPRESSION: No acute osseous abnormality. Subcutaneous hematoma and surrounding edema in the lateral aspect of the left upper thigh. Signed: Latrice Antoine Verified Date/Time: 08/03/2018 16:17:57 Reading Location: [address] Ortho Consult Reading Room , BRAIN/STROKE [id number] 15:41:00Reason for exam:->atrokeFINAL REPORT CT Head without contrast CLINICAL HISTORY: [...] IMPRESSION: No intracranial hemorrhage. Signed: Velia Cunningham Verified Date/Time: 08/03/2018 15:41:27 Reading Location: [address] Neuro Reading Room , CHEST, 1 VIEW, NON [id number] 14:16:00Reason for exam:->aspirationShould this be performed at the bedside?->YesFINAL REPORT RAD, CHEST, 1 VIEW, NON DEPT INDICATION: aspiration COMPARISON: July 12, 2018 FINDINGS: Portable frontal view of the chest. IMPRESSION: Support Lines: None. Lungs and pleura: Hypoinflated. No consol idation or effusion. No pneumothorax.Heart and mediastinum: Stable contours.Herson tional findings: None. Signed: JR Canales Robert MDReport Verified Date/T abbie: 08/03/2018 14:16:48 Reading Location: [address] Consult Reading Room , BRAIN, WITHOUT [id number] 13:15:00FINAL REPORT MRI Brain without contrast Clinical History: [...] There are no extra-axial fluid collections. The c raniocervical junction is preserved. The major intracranial flow-voids appear pa tent. 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 Now subacute right b purvi ganglia and pontine infarcts. Now subacute right thalamic petechial hemorrh age. Signed: Velia Cunningham Verified Date/Time: 08/03/2018 13:15:41 Annabel mota Location: [facility] C013V Neuro Reading Room -GLUCOSE [id number] 11:33:00 * Test Item Value Reference Range Comments POC-GLUCOSE METER (BEAKER) (test wfnm=0747) 202 mg/dL 70-110 TESTED AT [facility] [address] [facility] [address] HEMOGLOBIN AND [id number] 11:11:00* Test Item Value Reference Range Comments HEMOGLOBIN (BEAKER) (test vhvc=565) 7.2 GM/DL 11.2-15.7 HEMATOCRIT (BEAKER) (test bddg=800) 22.6 % 34.1-44.9 CBC W/PLT COUNT & AUTO [id number] 07:28:00* Test Item Value Reference Range Comments WHITE BLOOD CELL COUNT (BEAKER) (test jruy=510) 8.5 K/ L 3.5-10.5 RED BLOOD CELL COUNT (BEAKER) (test ljbk=897) 2.28 M/ L 3.93-5.22 HEMOGLOBIN (BEAKER) (test godf=757) 7.0 GM/DL 11.2-15.7 HEMATOCRIT (BEAKER) (test ptsa=115) 21.6 % 34.1-44.9 MEAN CORPUSCULAR VOLUME (BEAKER) (test rlbr=989) 94.7 fL 79.4-94.8 MEAN CORPUSCULAR HEMOGLOBIN (BEAKER) (test obzk=507) 30.7 pg 25.6-32.2 MEAN CORPUSCULAR HEMOGLOBIN CONC (BEAKER) (test retg=769) 32.4 GM/DL 32.2-35.5 RED CELL DISTRIBUTION WIDTH (BEAKER) (test jdma=139) 12.9 % 11.7-14.4 PLATELET COUNT (BEAKER) (test kzeu=351) 252 K/CU MM 150-450 MEAN PLATELET VOLUME (BEAKER) (test cnew=540) 10.0 fL 9.4-12.3 NUCLEATED RED BLOOD CELLS (BEAKER) (test ntra=793) 0 /100 WBC 0-0 NEUTROPHILS RELATIVE PERCENT (BEAKER) (test ecvx=024) 74 % LYMPHOCYTES RELATIVE PERCENT (BEAKER) (test gkem=940) 11 % MONOCYTES RELATIVE PERCENT (BEAKER) (test hggi=828) 11 % EOSINOPHILS RELATIVE PERCENT (BEAKER) (test oieg=744) 3 % BASOPHILS RELATIVE PERCENT (BEAKER) (test otzi=977) 0 % NEUTROPHILS ABSOLUTE COUNT (BEAKER) (test qlhw=815) 6.26 K/ L 1.56-6.13 LYMPHOCYTES ABSOLUTE COUNT (BEAKER) (test pddy=972) 0.92 K/ L 1.18-3.74 MONOCYTES ABSOLUTE COUNT (BEAKER) (test udas=513) 0.96 K/ L 0.24-0.36 EOSINOPHILS ABSOLUTE COUNT (BEAKER) (test vrnw=593) 0.27 K/ L 0.04-0.36 BASOPHILS ABSOLUTE COUNT (BEAKER) (test sdtp=606) 0.03 K/ L 0.01-0.08 IMMATURE GRANULOCYTES-RELATIVE PERCENT (BEAKER) (test nxke=6940) 1 % 0-1 BASIC METABOLIC [id number] 07:17:00* Test Item Value Reference Range Comments SODIUM (BEAKER) (test pbil=023) 125 meq/L 136-145 POTASSIUM (BEAKER) (test xohi=290) 5.1 meq/L 3.5-5.1 CHLORIDE (BEAKER) (test jquh=707) 99 meq/L 98-107 CO2 (BEAKER) (test qart=704) 19 meq/L 22-29 BLOOD UREA NITROGEN (BEAKER) (test gtgl=278) 46 mg/dL 7-21 CREATININE (BEAKER) (test wigi=813) 2.18 mg/dL 0.57-1.25 GLUCOSE RANDOM (BEAKER) (test hzzw=791) 153 mg/dL 70-105 CALCIUM (BEAKER) (test gqeh=777) 8.5 mg/dL 8.4-10.2 EGFR (BEAKER) (test sbdz=7558) 22 mL/min/1.73 sq m ESTIMATED GFR IS NOT ACCURATE CREATININE CLEARANCE IN PREDICTING GLOMERULAR FILTRATION RATE. ESTIMATED GFR IS NOT APPLICABLE FOR DIALYSIS PATIENTS. POCT-GLUCOSE [id number] 06:17:00* Test Item Value Reference Range Comments POC-GLUCOSE METER (BEAKER) (test clgu=7162) 202 mg/dL 70-110 TESTED AT [facility] [address] [facility] [address] POCT-GLUCOSE [id number] 19:14:00* Test Item Value Reference Range Comments POC-GLUCOSE METER (BEAKER) (test crqg=3384) 260 mg/dL 70-110 TESTED AT [facility] [address] [facility] [address] CT, BRAIN, [id number] 18:59:00FINAL REPORT EXAMINATION NONCONTRAST HEAD CT SCAN CLINICAL [...] deep white matter changes, remote left occipital TESTING ANALYST distribution infarct and intracranial calcific atherosclerosis are redemonstrated. Subacutely evolving right thalamic and pontine infarcts are also again noted without evidence hemorrhagic conversion or significant swelling-mass effect. Although there are no definitive findings to suggest evolving ischemia, CT is not sensitive for the correction of early or small infarcts. No evidence of acute intracranial hemorrhage, mass effect, mid line shift, hydrocephalus or new extra-axial fluid collection. The visualized p aranasal sinuses, tympanic cavities and mastoid air cells are well pneumatized. No evidence of an acute skull fracture or orbital injury. IMPRESSION: No defin ite evidence of an acute intracranial process. Subacute and chronic ischemic dimitri nges as detailed. If there is persistent clinical concern, consider MRI. Signed: Ioana Hoffmanort Verified Date/Time: 08/02/2018 18:59:20 Reading Location: [address] Reading Room -GLUCOSE [id number] 17:17:00* Test Item Value Reference Range Comments POC-GLUCOSE METER (BEAKER) (test bqwd=0475) 263 mg/dL 70-110 TESTED AT [address] [address] OSMOLALITY, [id number] 13:49:00* Test Item Value Reference Range Comments OSMOLALITY URINE (BEAKER) (test tlwy=493) 369 mOsm/kg 40-1,400 SODIUM, RANDOM [id number] 13:00:00* Test Item Value Reference Range Comments SODIUM URINE (BEAKER) (test svle=484) < meq/L Reference Range: No NormalsURINALYSIS W/ [id number] 12:51:00* Test Item Value Reference Range Comments COLOR (BEAKER) (test yyuv=131) Yellow CLARITY (BEAKER) (test hjtf=944) Hazy SPECIFIC GRAVITY UA (BEAKER) (test iogq=259) 1.014 1.001-1.035 PH UA (BEAKER) (test xaki=520) 5.0 5.0-8.0 PROTEIN UA (BEAKER) (test ynqs=525) Negative Negative GLUCOSE UA (BEAKER) (test ufkf=474) Negative Negative KETONES UA (BEAKER) (test nhac=264) Negative Negative BILIRUBIN UA (BEAKER) (test ehmk=411) Negative Negative BLOOD UA (BEAKER) (test ufud=584) Negative Negative NITRITE UA (BEAKER) (test wmzs=566) Negative Negative LEUKOCYTE ESTERASE UA (BEAKER) (test izrp=366) Large Negative UROBILINOGEN UA (BEAKER) (test gfkm=208) 0.2 mg/dL 0.2-1.0 RBC UA (BEAKER) (test xzbz=143) 6 /HPF WBC UA (BEAKER) (test ntfl=758) 50 /HPF BACTERIA (BEAKER) (test khgg=327) Occasional MUCUS (BEAKER) (test zlul=4414) Rare SQUAMOUS EPITHELIAL (BEAKER) (test pqno=664) 9 /HPF SOURCE(BEAKER) (test mzxh=8438) Urine, Voided TROPONIN [id number] 12:28:00* Test Item Value Reference Range Comments TROPONIN I (BEAKER) (test vusg=981) 0.01 ng/mL 0.00-0.03 Troponin I (TnI) levels must be interpreted in the context of the presenting sym ptoms and the clinical findings. Elevated TnI levels indicate myocardial damage, but are not specific for ischemic heart disease. Elevated TnI levels are seen in patients with other cardiac conditions (including myocarditis and congestive h eart failure), and slight TnI elevations occur in patients with other conditions , including sepsis, renal failure, acidosis, acute neurological disease, and per sistent tachyarrhythmia.OSMOLALITY, [id number] 12:21:00* Test Item Value Reference Range Comments OSMOLALITY, SERUM (BEAKER) (test mcjj=329) 276 mOsm/kg 275-295 POCT-GLUCOSE [id number] 11:13:00* Test Item Value Reference Range Comments POC-GLUCOSE METER (BEAKER) (test dovh=0622) 192 mg/dL 70-110 TESTED AT [facility] [address] [facility] [address] BASIC METABOLIC [id number] 06:51:00* Test Item Value Reference Range Comments SODIUM (BEAKER) (test zbfc=322) 125 meq/L 136-145 POTASSIUM (BEAKER) (test ptun=958) 4.8 meq/L 3.5-5.1 CHLORIDE (BEAKER) (test acik=842) 95 meq/L 98-107 CO2 (BEAKER) (test tiaq=096) 22 meq/L 22-29 BLOOD UREA NITROGEN (BEAKER) (test vtjd=278) 33 mg/dL 7-21 CREATININE (BEAKER) (test izwn=345) 1.20 mg/dL 0.57-1.25 GLUCOSE RANDOM (BEAKER) (test yknf=408) 130 mg/dL 70-105 CALCIUM (BEAKER) (test yuxz=368) 9.3 mg/dL 8.4-10.2 EGFR (BEAKER) (test iuev=6635) 43 mL/min/1.73 sq m ESTIMATED GFR IS NOT ACCURATE CREATININE CLEARANCE IN PREDICTING GLOMERULAR FILTRATION RATE. ESTIMATED GFR IS NOT APPLICABLE FOR DIALYSIS PATIENTS. CBC W/PLT COUNT & AUTO [id number] 06:26:00* Test Item Value Reference Range Comments WHITE BLOOD CELL COUNT (BEAKER) (test zhig=415) 9.9 K/ L 3.5-10.5 RED BLOOD CELL COUNT (BEAKER) (test nsia=637) 2.82 M/ L 3.93-5.22 HEMOGLOBIN (BEAKER) (test xpnr=801) 8.5 GM/DL 11.2-15.7 HEMATOCRIT (BEAKER) (test aveq=617) 25.6 % 34.1-44.9 MEAN CORPUSCULAR VOLUME (BEAKER) (test foxk=874) 90.8 fL 79.4-94.8 MEAN CORPUSCULAR HEMOGLOBIN (BEAKER) (test vexe=272) 30.1 pg 25.6-32.2 MEAN CORPUSCULAR HEMOGLOBIN CONC (BEAKER) (test yewd=771) 33.2 GM/DL 32.2-35.5 RED CELL DISTRIBUTION WIDTH (BEAKER) (test aaap=705) 12.5 % 11.7-14.4 PLATELET COUNT (BEAKER) (test lxts=611) 300 K/CU MM 150-450 MEAN PLATELET VOLUME (BEAKER) (test pdhc=041) 9.6 fL 9.4-12.3 NUCLEATED RED BLOOD CELLS (BEAKER) (test ephk=515) 0 /100 WBC 0-0 NEUTROPHILS RELATIVE PERCENT (BEAKER) (test moyr=341) 75 % LYMPHOCYTES RELATIVE PERCENT (BEAKER) (test zoet=791) 14 % MONOCYTES RELATIVE PERCENT (BEAKER) (test wnmb=889) 9 % EOSINOPHILS RELATIVE PERCENT (BEAKER) (test tlwl=811) 2 % BASOPHILS RELATIVE PERCENT (BEAKER) (test wvpk=345) 1 % NEUTROPHILS ABSOLUTE COUNT (BEAKER) (test aqjf=671) 7.44 K/ L 1.56-6.13 LYMPHOCYTES ABSOLUTE COUNT (BEAKER) (test gwgf=255) 1.34 K/ L 1.18-3.74 MONOCYTES ABSOLUTE COUNT (BEAKER) (test kafi=163) 0.87 K/ L 0.24-0.36 EOSINOPHILS ABSOLUTE COUNT (BEAKER) (test eupq=367) 0.16 K/ L 0.04-0.36 BASOPHILS ABSOLUTE COUNT (BEAKER) (test fuil=434) 0.05 K/ L 0.01-0.08 IMMATURE GRANULOCYTES-RELATIVE PERCENT (BEAKER) (test cctu=7909) 1 % 0-1 POCT-GLUCOSE [id number] 06:18:00* Test Item Value Reference Range Comments POC-GLUCOSE METER (BEAKER) (test mtqr=0117) 123 mg/dL 70-110 TESTED AT [place] [id number] [facility] [address] POCT-GLUCOSE [id number] 21:02:00* Test Item Value Reference Range Comments POC-GLUCOSE METER (BEAKER) (test jmbb=1998) 156 mg/dL 70-110 TESTED AT [place] [id number] [facility] [address] POCT-GLUCOSE [id number] 16:46:00* Test Item Value Reference Range Comments POC-GLUCOSE METER (BEAKER) (test wquz=5715) 158 mg/dL 70-110 TESTED AT [address] [address] [address], EXTREMITY, LOWER WITHOUT CONTRAST, [id number] 15:12:00FINAL REPORT CT scan of the left lower extremity. Clinical history: Abnormal x-ray. Tense swelling in left lateral thigh, proximal femur. COMPARISON STUDY: Plain film dated July 31, 2018. TECHNIQUE: Contiguous helical slices were acquired through the left femur from the pelvic inlet to the knee without the administration of contrast. This exam was performed according to our department dose optimization program which includes automated exposure control, adjustment of the mA and/or kV according to the patient's size and/or use of iterative reconstruction technique. FINDINGS: A 9.6 x 5.7 x 6.5 cm subcutaneous fluid collection is seen in the left proximal lateral thigh. Extensive adjacent subcutaneous stranding is seen. No intramuscular collections are seen. The visu alized portions of the abdomen are unremarkable. No extraluminal gas is identifi ed. Bone windows demonstrate degenerative changes. No evidence of fracture or ma lalignment is seen. There is no evidence of osteomyelitis. IMPRESSION:1. Large s ubcutaneous complex left thigh fluid collection with fluid/fluid levels. Hematom a would be highest in the differential. Some stranding, likely tracking blood tr acks along the lateral thigh. Signed: Wai Maddoxeport Verified Date/Manjit e: 08/01/2018 15:12:09 Reading Location: [address] Ortho Consult Reading Naila beronica -GLUCOSE [id number] 11:22:00* Test Item Value Reference Range Comments POC-GLUCOSE METER (BEAKER) (test feah=5772) 204 mg/dL 70-110 TESTED AT [address] [address] BASIC METABOLIC [id number] 07:13:00* Test Item Value Reference Range Comments SODIUM (BEAKER) (test zlct=167) 127 meq/L 136-145 POTASSIUM (BEAKER) (test iqii=702) 4.3 meq/L 3.5-5.1 CHLORIDE (BEAKER) (test heyp=307) 95 meq/L 98-107 CO2 (BEAKER) (test lfjw=814) 24 meq/L 22-29 BLOOD UREA NITROGEN (BEAKER) (test admg=080) 23 mg/dL 7-21 CREATININE (BEAKER) (test jqnd=398) 0.81 mg/dL 0.57-1.25 GLUCOSE RANDOM (BEAKER) (test hubq=870) 107 mg/dL 70-105 CALCIUM (BEAKER) (test gxmw=227) 9.4 mg/dL 8.4-10.2 EGFR (BEAKER) (test wxbm=4207) 68 mL/min/1.73 sq m ESTIMATED GFR IS NOT ACCURATE CREATININE CLEARANCE IN PREDICTING GLOMERULAR FILTRATION RATE. ESTIMATED GFR IS NOT APPLICABLE FOR DIALYSIS PATIENTS. POCT-GLUCOSE [id number] 06:05:00* Test Item Value Reference Range Comments POC-GLUCOSE METER (BEAKER) (test ozxk=2109) 132 mg/dL 70-110 TESTED AT [facility] [address] [facility] [address] CBC W/PLT COUNT & AUTO [id number] 05:30:00* Test Item Value Reference Range Comments WHITE BLOOD CELL COUNT (BEAKER) (test fztg=651) 9.0 K/ L 3.5-10.5 RED BLOOD CELL COUNT (BEAKER) (test hjoi=957) 2.98 M/ L 3.93-5.22 HEMOGLOBIN (BEAKER) (test ztgk=711) 9.0 GM/DL 11.2-15.7 HEMATOCRIT (BEAKER) (test jwar=294) 27.0 % 34.1-44.9 MEAN CORPUSCULAR VOLUME (BEAKER) (test tcqc=784) 90.6 fL 79.4-94.8 MEAN CORPUSCULAR HEMOGLOBIN (BEAKER) (test jspc=785) 30.2 pg 25.6-32.2 MEAN CORPUSCULAR HEMOGLOBIN CONC (BEAKER) (test voed=976) 33.3 GM/DL 32.2-35.5 RED CELL DISTRIBUTION WIDTH (BEAKER) (test afuw=524) 12.4 % 11.7-14.4 PLATELET COUNT (BEAKER) (test yimo=992) 301 K/CU MM 150-450 MEAN PLATELET VOLUME (BEAKER) (test adfc=441) 9.6 fL 9.4-12.3 NUCLEATED RED BLOOD CELLS (BEAKER) (test iwcy=054) 0 /100 WBC 0-0 NEUTROPHILS RELATIVE PERCENT (BEAKER) (test wrcb=754) 73 % LYMPHOCYTES RELATIVE PERCENT (BEAKER) (test fico=741) 16 % MONOCYTES RELATIVE PERCENT (BEAKER) (test hvqb=730) 7 % EOSINOPHILS RELATIVE PERCENT (BEAKER) (test ohdb=591) 3 % BASOPHILS RELATIVE PERCENT (BEAKER) (test pkuq=658) 1 % NEUTROPHILS ABSOLUTE COUNT (BEAKER) (test utig=890) 6.58 K/ L 1.56-6.13 LYMPHOCYTES ABSOLUTE COUNT (BEAKER) (test swhi=089) 1.45 K/ L 1.18-3.74 MONOCYTES ABSOLUTE COUNT (BEAKER) (test fvxf=143) 0.59 K/ L 0.24-0.36 EOSINOPHILS ABSOLUTE COUNT (BEAKER) (test cvvt=831) 0.23 K/ L 0.04-0.36 BASOPHILS ABSOLUTE COUNT (BEAKER) (test dpuf=128) 0.06 K/ L 0.01-0.08 IMMATURE GRANULOCYTES-RELATIVE PERCENT (BEAKER) (test fnfq=4471) 1 % 0-1 RAD, HIP, 2 VIEWS, [id number] 00:53:00Reason for exam:->s/p unwitnessed fall. earlier xray unremarkable, now w/ worsening pain, bruising, edemaFINAL REPORT EXAMINATION: Left hip series, 2 views CLINICAL INDICATION: Fall, hip pain IMPRESSION: Compared with 07/31/2018, 0805 hours The examination is somewhat limited by the large volume of superimposed soft tissue attenuation. No definite evidence of acute fracture or malalignment. If there is persistent clinical concern, consider CT for further evaluation. Signed: Ioana Hoffman Verified Date/Time: 08/01/2018 00:53:48 Reading Location: [address] Reading Room -GLUCOSE [id number] 21:08:00* Test Item Value Reference Range Comments POC-GLUCOSE METER (BEAKER) (test zmoh=9427) 150 mg/dL 70-110 TESTED AT [address] [address] POCT-GLUCOSE [id number] 16:19:00* Test Item Value Reference Range Comments POC-GLUCOSE METER (BEAKER) (test qmeu=1316) 196 mg/dL 70-110 TESTED AT [address] [address] POCT-GLUCOSE [id number] 11:20:00* Test Item Value Reference Range Comments POC-GLUCOSE METER (BEAKER) (test konf=9693) 165 mg/dL 70-110 TESTED AT [facility] [address] [facility] [address] RAD, HIP, 2 VIEWS, [id number] 08:39:00Reason for exam:->s/p fallFINAL REPORT History: Fall Comparison : None AP and frogleg views of the left hip were obtained. There are no fractures or dislocations. No lytic or blastic abnormalities are seen. No radiopaque foreign bodies. No soft tissue abnormalities are seen. 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 IMPRESSION: No acute osseous abnormalities of the left hip. Signed: Lino Doe MDReport Verified Date/Time: 07/31/2018 08:39:04 Reading Location: [address] Reading Room C METABOLIC [id number] 07:12:00* Test Item Value Reference Range Comments SODIUM (BEAKER) (test xdvm=759) 129 meq/L 136-145 POTASSIUM (BEAKER) (test mopo=378) 4.3 meq/L 3.5-5.1 CHLORIDE (BEAKER) (test qury=755) 97 meq/L 98-107 CO2 (BEAKER) (test xxbc=648) 25 meq/L 22-29 BLOOD UREA NITROGEN (BEAKER) (test prlj=989) 17 mg/dL 7-21 CREATININE (BEAKER) (test sgzg=882) 0.74 mg/dL 0.57-1.25 GLUCOSE RANDOM (BEAKER) (test tcsd=848) 82 mg/dL 70-105 CALCIUM (BEAKER) (test frjg=074) 9.6 mg/dL 8.4-10.2 EGFR (BEAKER) (test ygdk=9711) 75 mL/min/1.73 sq m ESTIMATED GFR IS NOT ACCURATE CREATININE CLEARANCE IN PREDICTING GLOMERULAR FILTRATION RATE. ESTIMATED GFR IS NOT APPLICABLE FOR DIALYSIS PATIENTS. POCT-GLUCOSE [id number] 05:38:00* Test Item Value Reference Range Comments POC-GLUCOSE METER (BEAKER) (test sdao=7905) 97 mg/dL 70-110 TESTED AT [address] [address] POCT-GLUCOSE [id number] 20:57:00* Test Item Value Reference Range Comments POC-GLUCOSE METER (BEAKER) (test dkgp=7890) 139 mg/dL 70-110 TESTED AT [address] [address] POCT-GLUCOSE [id number] 17:27:00* Test Item Value Reference Range Comments POC-GLUCOSE METER (BEAKER) (test rxbw=7598) 109 mg/dL 70-110 TESTED AT [address] [address] C. DIFFICILE GDH [id number] 13:33:00* Test Item Value Reference Range Comments CDT TOXIN (test hwgr=[id number]) Negative Negative CDT GDH ANTIGEN (test xovs=[id number]) Negative Negative No indication of Clostridium difficile infection and no colonization. Discontinue enteric isolation and therapy. Testing performed by [employer] Rapid Cassette Assay. For GDH, published sensitivity of the assay is 98.7% compared to cytotoxicity testing. For Toxin AB, published sensitivity is 87.8% and specificity 99.4% compared to cytotoxicity testing.Ve rification of kit performance was done by the [facility] Microbiology Lab prior to cl inical use.POCT-GLUCOSE [id number] 12:08:00* Test Item Value Reference Range Comments POC-GLUCOSE METER (BEAKER) (test tlqx=2306) 120 mg/dL 70-110 TESTED AT [address] [address] POCT-GLUCOSE [id number] 06:54:00* Test Item Value Reference Range Comments POC-GLUCOSE METER (BEAKER) (test wjny=3874) 95 mg/dL 70-110 TESTED AT [address] [address] POCT-GLUCOSE [id number] 21:13:00* Test Item Value Reference Range Comments POC-GLUCOSE METER (BEAKER) (test hoki=6777) 129 mg/dL 70-110 TESTED AT [address] [address] POCT-GLUCOSE [id number] 18:51:00* Test Item Value Reference Range Comments POC-GLUCOSE METER (BEAKER) (test vcnk=7781) 69 mg/dL 70-110 TESTED AT [address] [address] POCT-GLUCOSE [id number] 17:11:00* Test Item Value Reference Range Comments POC-GLUCOSE METER (BEAKER) (test kjhe=6507) 55 mg/dL 70-110 Notified ROSALBA MERRILL/TESTED AT [address] [address] POCT-GLUCOSE [id number] 10:59:00* Test Item Value Reference Range Comments POC-GLUCOSE METER (BEAKER) (test wkhx=9078) 135 mg/dL 70-110 TESTED AT [address] [address] POCT-GLUCOSE [id number] 07:27:00* Test Item Value Reference Range Comments POC-GLUCOSE METER (BEAKER) (test nocc=9835) 121 mg/dL 70-110 TESTED AT [address] [address] POCT-GLUCOSE [id number] 07:03:00* Test Item Value Reference Range Comments POC-GLUCOSE METER (BEAKER) (test txsf=6315) 61 mg/dL 70-110 TESTED AT [address] [address] POCT-GLUCOSE [id number] 06:48:00* Test Item Value Reference Range Comments POC-GLUCOSE METER (BEAKER) (test mwep=6567) 58 mg/dL 70-110 TESTED AT [address] [address] POCT-GLUCOSE [id number] 21:56:00* Test Item Value Reference Range Comments POC-GLUCOSE METER (BEAKER) (test udpc=4486) 174 mg/dL 70-110 TESTED AT [address] [address] POCT-GLUCOSE [id number] 16:13:00* Test Item Value Reference Range Comments POC-GLUCOSE METER (BEAKER) (test petg=0989) 150 mg/dL 70-110 TESTED AT [address] [address] POCT-GLUCOSE [id number] 11:31:00* Test Item Value Reference Range Comments POC-GLUCOSE METER (BEAKER) (test gniv=5287) 184 mg/dL 70-110 TESTED AT [address] [address] POCT-GLUCOSE [id number] 05:18:00* Test Item Value Reference Range Comments POC-GLUCOSE METER (BEAKER) (test bped=3086) 110 mg/dL 70-110 TESTED AT [address] [address] POCT-GLUCOSE [id number] 20:19:00* Test Item Value Reference Range Comments POC-GLUCOSE METER (BEAKER) (test qnhq=9070) 238 mg/dL 70-110 TESTED AT [address] [address] POCT-GLUCOSE [id number] 16:54:00* Test Item Value Reference Range Comments POC-GLUCOSE METER (BEAKER) (test wmkg=3358) 150 mg/dL 70-110 TESTED AT [address] [address] POCT-GLUCOSE [id number] 11:32:00* Test Item Value Reference Range Comments POC-GLUCOSE METER (BEAKER) (test exkr=0516) 209 mg/dL 70-110 TESTED AT [address] [address] POCT-GLUCOSE [id number] 06:52:00* Test Item Value Reference Range Comments POC-GLUCOSE METER (BEAKER) (test qgig=3292) 148 mg/dL 70-110 TESTED AT [address] [address] POCT-GLUCOSE [id number] 20:03:00* Test Item Value Reference Range Comments POC-GLUCOSE METER (BEAKER) (test chrr=0617) 326 mg/dL 70-110 TESTED AT [address] [address] POCT-GLUCOSE [id number] 16:10:00* Test Item Value Reference Range Comments POC-GLUCOSE METER (BEAKER) (test rqsu=8054) 233 mg/dL 70-110 TESTED AT [address] [address] POCT-GLUCOSE [id number] 11:15:00* Test Item Value Reference Range Comments POC-GLUCOSE METER (BEAKER) (test dpdk=8731) 228 mg/dL 70-110 TESTED AT [address] [address] COMPREHENSIVE METABOLIC [id number] 11:09:00* Test Item Value Reference Range Comments TOTAL PROTEIN (BEAKER) (test lyfa=986) 6.5 gm/dL 6.0-8.3 ALBUMIN (BEAKER) (test vnhv=6892) 3.6 g/dL 3.5-5.0 ALKALINE PHOSPHATASE (BEAKER) (test jpcs=012) 58 U/L 40-150 BILIRUBIN TOTAL (BEAKER) (test gqiz=616) 0.5 mg/dL 0.2-1.2 SODIUM (BEAKER) (test jrqg=354) 131 meq/L 136-145 POTASSIUM (BEAKER) (test hrcr=892) 4.5 meq/L 3.5-5.1 CHLORIDE (BEAKER) (test pjij=523) 97 meq/L 98-107 CO2 (BEAKER) (test aagi=487) 27 meq/L 22-29 BLOOD UREA NITROGEN (BEAKER) (test wxdt=534) 27 mg/dL 7-21 CREATININE (BEAKER) (test qaev=476) 0.97 mg/dL 0.57-1.25 GLUCOSE RANDOM (BEAKER) (test msmz=985) 207 mg/dL 70-105 CALCIUM (BEAKER) (test oqwz=064) 9.1 mg/dL 8.4-10.2 AST (SGOT) (BEAKER) (test rewf=490) 17 U/L 5-34 ALT (SGPT) (BEAKER) (test eehb=029) 15 U/L 6-55 EGFR (BEAKER) (test lngy=3147) 55 mL/min/1.73 sq m ESTIMATED GFR IS NOT ACCURATE CREATININE CLEARANCE IN PREDICTING GLOMERULAR FILTRATION RATE. ESTIMATED GFR IS NOT APPLICABLE FOR DIALYSIS PATIENTS. CBC W/PLT COUNT & AUTO [id number] 09:58:00* Test Item Value Reference Range Comments WHITE BLOOD CELL COUNT (BEAKER) (test cvcm=709) 7.1 K/ L 3.5-10.5 RED BLOOD CELL COUNT (BEAKER) (test rzte=918) 3.32 M/ L 3.93-5.22 HEMOGLOBIN (BEAKER) (test bkmo=931) 10.1 GM/DL 11.2-15.7 HEMATOCRIT (BEAKER) (test abdo=418) 31.2 % 34.1-44.9 MEAN CORPUSCULAR VOLUME (BEAKER) (test rrvb=786) 94.0 fL 79.4-94.8 MEAN CORPUSCULAR HEMOGLOBIN (BEAKER) (test luel=248) 30.4 pg 25.6-32.2 MEAN CORPUSCULAR HEMOGLOBIN CONC (BEAKER) (test pzus=051) 32.4 GM/DL 32.2-35.5 RED CELL DISTRIBUTION WIDTH (BEAKER) (test zbcy=648) 12.6 % 11.7-14.4 PLATELET COUNT (BEAKER) (test yqif=889) 338 K/CU MM 150-450 MEAN PLATELET VOLUME (BEAKER) (test xlko=588) 9.5 fL 9.4-12.3 NUCLEATED RED BLOOD CELLS (BEAKER) (test eone=194) 0 /100 WBC 0-0 NEUTROPHILS RELATIVE PERCENT (BEAKER) (test brfe=687) 69 % LYMPHOCYTES RELATIVE PERCENT (BEAKER) (test vsyw=245) 19 % MONOCYTES RELATIVE PERCENT (BEAKER) (test mnsk=071) 7 % EOSINOPHILS RELATIVE PERCENT (BEAKER) (test gslj=726) 4 % BASOPHILS RELATIVE PERCENT (BEAKER) (test fgdl=683) 1 % NEUTROPHILS ABSOLUTE COUNT (BEAKER) (test yscn=338) 4.90 K/ L 1.56-6.13 LYMPHOCYTES ABSOLUTE COUNT (BEAKER) (test lrqu=970) 1.32 K/ L 1.18-3.74 MONOCYTES ABSOLUTE COUNT (BEAKER) (test frel=235) 0.48 K/ L 0.24-0.36 EOSINOPHILS ABSOLUTE COUNT (BEAKER) (test ielz=013) 0.30 K/ L 0.04-0.36 BASOPHILS ABSOLUTE COUNT (BEAKER) (test tfmb=641) 0.06 K/ L 0.01-0.08 IMMATURE GRANULOCYTES-RELATIVE PERCENT (BEAKER) (test qhbe=9459) 1 % 0-1 POCT-GLUCOSE [id number] 06:47:00* Test Item Value Reference Range Comments POC-GLUCOSE METER (BEAKER) (test tutn=1583) 79 mg/dL 70-110 TESTED AT [facility] [address] [facility] [address] POCT-GLUCOSE [id number] 20:09:00* Test Item Value Reference Range Comments POC-GLUCOSE METER (BEAKER) (test qmwi=5909) 152 mg/dL 70-110 TESTED AT [facility] [address] [facility] [address] POCT-GLUCOSE [id number] 17:04:00* Test Item Value Reference Range Comments POC-GLUCOSE METER (BEAKER) (test hvfr=2152) 184 mg/dL 70-110 TESTED AT [facility] [address] [facility] [address] POCT-GLUCOSE [id number] 12:01:00* Test Item Value Reference Range Comments POC-GLUCOSE METER (BEAKER) (test rvmr=2008) 256 mg/dL 70-110 TESTED AT [address] [address] POCT-GLUCOSE [id number] 07:47:00* Test Item Value Reference Range Comments POC-GLUCOSE METER (BEAKER) (test jrcj=4793) 97 mg/dL 70-110 TESTED AT [place] [id number] [facility] [address] CBC W/PLT COUNT & AUTO [id number] 05:59:00* Test Item Value Reference Range Comments WHITE BLOOD CELL COUNT (BEAKER) (test mhgl=734) 8.7 K/ L 3.5-10.5 RED BLOOD CELL COUNT (BEAKER) (test bfmh=146) 3.44 M/ L 3.93-5.22 HEMOGLOBIN (BEAKER) (test mmgc=402) 10.4 GM/DL 11.2-15.7 HEMATOCRIT (BEAKER) (test sgga=526) 32.6 % 34.1-44.9 MEAN CORPUSCULAR VOLUME (BEAKER) (test hbmn=380) 94.8 fL 79.4-94.8 MEAN CORPUSCULAR HEMOGLOBIN (BEAKER) (test pcyz=700) 30.2 pg 25.6-32.2 MEAN CORPUSCULAR HEMOGLOBIN CONC (BEAKER) (test xdkm=000) 31.9 GM/DL 32.2-35.5 RED CELL DISTRIBUTION WIDTH (BEAKER) (test rbxa=419) 12.3 % 11.7-14.4 PLATELET COUNT (BEAKER) (test dbwe=016) 291 K/CU MM 150-450 MEAN PLATELET VOLUME (BEAKER) (test vikc=682) 9.5 fL 9.4-12.3 NUCLEATED RED BLOOD CELLS (BEAKER) (test whkn=375) 0 /100 WBC 0-0 NEUTROPHILS RELATIVE PERCENT (BEAKER) (test edkl=842) 65 % LYMPHOCYTES RELATIVE PERCENT (BEAKER) (test vtps=590) 20 % MONOCYTES RELATIVE PERCENT (BEAKER) (test htlb=622) 9 % EOSINOPHILS RELATIVE PERCENT (BEAKER) (test kmzv=869) 5 % BASOPHILS RELATIVE PERCENT (BEAKER) (test nukp=073) 1 % NEUTROPHILS ABSOLUTE COUNT (BEAKER) (test wrfg=446) 5.70 K/ L 1.56-6.13 LYMPHOCYTES ABSOLUTE COUNT (BEAKER) (test pzvs=909) 1.73 K/ L 1.18-3.74 MONOCYTES ABSOLUTE COUNT (BEAKER) (test jvak=010) 0.74 K/ L 0.24-0.36 EOSINOPHILS ABSOLUTE COUNT (BEAKER) (test megr=377) 0.40 K/ L 0.04-0.36 BASOPHILS ABSOLUTE COUNT (BEAKER) (test oplk=107) 0.08 K/ L 0.01-0.08 IMMATURE GRANULOCYTES-RELATIVE PERCENT (BEAKER) (test halu=7537) 1 % 0-1 [id number] 05:22:00* Test Item Value Reference Range Comments MAGNESIUM (BEAKER) (test eqee=044) 2.2 mg/dL 1.6-2.6 Specimen slightly hemolyzed [id number] 05:22:00* Test Item Value Reference Range Comments PHOSPHORUS (BEAKER) (test vyyj=641) 4.1 mg/dL 2.3-4.7 Specimen slightly hemolyzed BASIC METABOLIC [id number] 05:22:00* Test Item Value Reference Range Comments SODIUM (BEAKER) (test euch=730) 129 meq/L 136-145 POTASSIUM (BEAKER) (test amdo=106) 4.4 meq/L 3.5-5.1 Specimen slightly hemolyzed CHLORIDE (BEAKER) (test ekfl=271) 97 meq/L 98-107 CO2 (BEAKER) (test eqtc=163) 22 meq/L 22-29 BLOOD UREA NITROGEN (BEAKER) (test hpbn=440) 40 mg/dL 7-21 CREATININE (BEAKER) (test cfbp=643) 1.32 mg/dL 0.57-1.25 Specimen slightly hemolyzed GLUCOSE RANDOM (BEAKER) (test eofg=051) 98 mg/dL 70-105 CALCIUM (BEAKER) (test ewya=647) 9.3 mg/dL 8.4-10.2 EGFR (BEAKER) (test cpsg=8582) 39 mL/min/1.73 sq m ESTIMATED GFR IS NOT ACCURATE CREATININE CLEARANCE IN PREDICTING GLOMERULAR FILTRATION RATE. ESTIMATED GFR IS NOT APPLICABLE FOR DIALYSIS PATIENTS. POCT-GLUCOSE [id number] 20:31:00* Test Item Value Reference Range Comments POC-GLUCOSE METER (BEAKER) (test xvbo=1590) 177 mg/dL 70-110 TESTED AT [address] [address] RAD, SPINE, CERVICAL, 2 OR 3 [id number] 17:57:00Reason for exam:->pain in left arm tingling and numbnessFINAL REPORT Cervical spine series: No acute fracture, subluxation, or angulation. Straightening of the normal cervical spine lordosis. Moderate changes throughout the cervical spine with disc height narrowing, small osteophytes, and facet arthrosis. Normal prevertebral soft tissues. Impression: 1. Moderate degenerative changes throughout the cervical spine. 2. No acute abnormality. Signed: Jeff [place] Verified Date/Time: 07/24/2018 17:57:56 Reading Location: [address] Reading Room -GLUCOSE [id number] 17:34:00* Test Item Value Reference Range Comments POC-GLUCOSE METER (BEAKER) (test yrwp=0538) 140 mg/dL 70-110 TESTED AT [address] [address] POCT-GLUCOSE [id number] 13:21:00* Test Item Value Reference Range Comments POC-GLUCOSE METER (BEAKER) (test oouc=6950) 216 mg/dL 70-110 TESTED AT [address] [address] POCT-GLUCOSE [id number] 10:14:00* Test Item Value Reference Range Comments POC-GLUCOSE METER (BEAKER) (test iwvm=4484) 100 mg/dL 70-110 TESTED AT [address] [address] [id number] 05:40:00* Test Item Value Reference Range Comments PHOSPHORUS (BEAKER) (test johx=479) 4.1 mg/dL 2.3-4.7 [id number] 05:40:00* Test Item Value Reference Range Comments MAGNESIUM (BEAKER) (test huuu=196) 1.9 mg/dL 1.6-2.6 BASIC METABOLIC [id number] 05:40:00* Test Item Value Reference Range Comments SODIUM (BEAKER) (test ytai=431) 128 meq/L 136-145 POTASSIUM (BEAKER) (test ageh=785) 4.0 meq/L 3.5-5.1 CHLORIDE (BEAKER) (test alql=529) 95 meq/L 98-107 CO2 (BEAKER) (test tmmn=696) 26 meq/L 22-29 BLOOD UREA NITROGEN (BEAKER) (test rbdn=582) 26 mg/dL 7-21 CREATININE (BEAKER) (test scqk=067) 1.03 mg/dL 0.57-1.25 GLUCOSE RANDOM (BEAKER) (test okll=157) 115 mg/dL 70-105 CALCIUM (BEAKER) (test dudh=394) 8.9 mg/dL 8.4-10.2 EGFR (BEAKER) (test daka=7036) 51 mL/min/1.73 sq m ESTIMATED GFR IS NOT ACCURATE CREATININE CLEARANCE IN PREDICTING GLOMERULAR FILTRATION RATE. ESTIMATED GFR IS NOT APPLICABLE FOR DIALYSIS PATIENTS. CBC W/PLT COUNT & AUTO [id number] 04:12:00* Test Item Value Reference Range Comments WHITE BLOOD CELL COUNT (BEAKER) (test crkx=980) 6.6 K/ L 3.5-10.5 RED BLOOD CELL COUNT (BEAKER) (test pryp=952) 3.11 M/ L 3.93-5.22 HEMOGLOBIN (BEAKER) (test ltql=788) 9.5 GM/DL 11.2-15.7 HEMATOCRIT (BEAKER) (test ojsk=624) 28.6 % 34.1-44.9 MEAN CORPUSCULAR VOLUME (BEAKER) (test qmmh=801) 92.0 fL 79.4-94.8 MEAN CORPUSCULAR HEMOGLOBIN (BEAKER) (test cqze=206) 30.5 pg 25.6-32.2 MEAN CORPUSCULAR HEMOGLOBIN CONC (BEAKER) (test kpzy=476) 33.2 GM/DL 32.2-35.5 RED CELL DISTRIBUTION WIDTH (BEAKER) (test zlpy=836) 12.4 % 11.7-14.4 PLATELET COUNT (BEAKER) (test izbi=008) 302 K/CU MM 150-450 MEAN PLATELET VOLUME (BEAKER) (test xsaw=777) 9.1 fL 9.4-12.3 NUCLEATED RED BLOOD CELLS (BEAKER) (test ybva=224) 0 /100 WBC 0-0 NEUTROPHILS RELATIVE PERCENT (BEAKER) (test lrjq=383) 66 % LYMPHOCYTES RELATIVE PERCENT (BEAKER) (test ujja=724) 21 % MONOCYTES RELATIVE PERCENT (BEAKER) (test oqat=379) 9 % EOSINOPHILS RELATIVE PERCENT (BEAKER) (test ouup=498) 4 % BASOPHILS RELATIVE PERCENT (BEAKER) (test kkzp=868) 1 % NEUTROPHILS ABSOLUTE COUNT (BEAKER) (test bsps=930) 4.35 K/ L 1.56-6.13 LYMPHOCYTES ABSOLUTE COUNT (BEAKER) (test zpat=130) 1.36 K/ L 1.18-3.74 MONOCYTES ABSOLUTE COUNT (BEAKER) (test vixu=297) 0.57 K/ L 0.24-0.36 EOSINOPHILS ABSOLUTE COUNT (BEAKER) (test rjrb=351) 0.26 K/ L 0.04-0.36 BASOPHILS ABSOLUTE COUNT (BEAKER) (test fnmz=577) 0.05 K/ L 0.01-0.08 IMMATURE GRANULOCYTES-RELATIVE PERCENT (BEAKER) (test jcva=6991) 1 % 0-1 POCT-GLUCOSE [id number] 20:03:00* Test Item Value Reference Range Comments POC-GLUCOSE METER (BEAKER) (test zywd=9190) 224 mg/dL 70-110 TESTED AT [address] [address] POCT-GLUCOSE [id number] 17:54:00* Test Item Value Reference Range Comments POC-GLUCOSE METER (BEAKER) (test sjbi=6626) 136 mg/dL 70-110 TESTED AT [address] [address] POCT-GLUCOSE [id number] 16:52:00* Test Item Value Reference Range Comments POC-GLUCOSE METER (BEAKER) (test qtow=3766) 182 mg/dL 70-110 TESTED AT [address] [address] POCT-GLUCOSE [id number] 12:13:00* Test Item Value Reference Range Comments POC-GLUCOSE METER (BEAKER) (test atra=5119) 112 mg/dL 70-110 TESTED AT [facility] [address] [facility] [address] HEMOGLOBIN [id number] 08:36:00* Test Item Value Reference Range Comments HEMOGLOBIN A1C (BEAKER) (test gtot=380) 7.6 % 4.3-6.1 CT, BRAIN, WITHOUT [id number] 07:19:00FINAL REPORT CT head without contrast. Reason for [...] No acute process identified. Signed: Latrice Antoine Verified Date/Time: 07/23 07:19:38 Reading Location: [address] Neuro Reading Room [facility] signed by: LATRICE ANTOINE M.D. on 07/23/2018 07:19 AM [id number] 06:07:00* Test Item Value Reference Range Comments PHOSPHORUS (BEAKER) (test wcho=739) 4.8 mg/dL 2.3-4.7 [id number] 06:07:00* Test Item Value Reference Range Comments MAGNESIUM (BEAKER) (test txgb=209) 1.8 mg/dL 1.6-2.6 BASIC METABOLIC [id number] 06:07:00* Test Item Value Reference Range Comments SODIUM (BEAKER) (test xwha=786) 130 meq/L 136-145 POTASSIUM (BEAKER) (test filz=766) 4.1 meq/L 3.5-5.1 CHLORIDE (BEAKER) (test fgas=138) 96 meq/L 98-107 CO2 (BEAKER) (test uacm=676) 25 meq/L 22-29 BLOOD UREA NITROGEN (BEAKER) (test paxd=118) 18 mg/dL 7-21 CREATININE (BEAKER) (test qwdh=244) 0.85 mg/dL 0.57-1.25 GLUCOSE RANDOM (BEAKER) (test mqzo=904) 115 mg/dL 70-105 CALCIUM (BEAKER) (test djzm=314) 9.3 mg/dL 8.4-10.2 EGFR (BEAKER) (test mbzm=6048) 64 mL/min/1.73 sq m ESTIMATED GFR IS NOT ACCURATE CREATININE CLEARANCE IN PREDICTING GLOMERULAR FILTRATION RATE. ESTIMATED GFR IS NOT APPLICABLE FOR DIALYSIS PATIENTS. CBC W/PLT COUNT & AUTO [id number] 05:22:00* Test Item Value Reference Range Comments WHITE BLOOD CELL COUNT (BEAKER) (test ewtc=888) 6.1 K/ L 3.5-10.5 RED BLOOD CELL COUNT (BEAKER) (test tcyo=061) 3.35 M/ L 3.93-5.22 HEMOGLOBIN (BEAKER) (test aeav=069) 10.0 GM/DL 11.2-15.7 HEMATOCRIT (BEAKER) (test ygkb=915) 30.9 % 34.1-44.9 MEAN CORPUSCULAR VOLUME (BEAKER) (test bdnz=456) 92.2 fL 79.4-94.8 MEAN CORPUSCULAR HEMOGLOBIN (BEAKER) (test smbc=073) 29.9 pg 25.6-32.2 MEAN CORPUSCULAR HEMOGLOBIN CONC (BEAKER) (test teyo=052) 32.4 GM/DL 32.2-35.5 RED CELL DISTRIBUTION WIDTH (BEAKER) (test gxbk=261) 12.4 % 11.7-14.4 PLATELET COUNT (BEAKER) (test clwo=309) 297 K/CU MM 150-450 MEAN PLATELET VOLUME (BEAKER) (test dfkb=217) 9.3 fL 9.4-12.3 NUCLEATED RED BLOOD CELLS (BEAKER) (test pvox=920) 0 /100 WBC 0-0 NEUTROPHILS RELATIVE PERCENT (BEAKER) (test efij=143) 70 % LYMPHOCYTES RELATIVE PERCENT (BEAKER) (test pncg=744) 19 % MONOCYTES RELATIVE PERCENT (BEAKER) (test opbj=060) 9 % EOSINOPHILS RELATIVE PERCENT (BEAKER) (test drrp=900) 1 % BASOPHILS RELATIVE PERCENT (BEAKER) (test wdpf=723) 1 % NEUTROPHILS ABSOLUTE COUNT (BEAKER) (test tfit=761) 4.31 K/ L 1.56-6.13 LYMPHOCYTES ABSOLUTE COUNT (BEAKER) (test vbwo=929) 1.14 K/ L 1.18-3.74 MONOCYTES ABSOLUTE COUNT (BEAKER) (test zljb=640) 0.54 K/ L 0.24-0.36 EOSINOPHILS ABSOLUTE COUNT (BEAKER) (test bfqb=834) 0.07 K/ L 0.04-0.36 BASOPHILS ABSOLUTE COUNT (BEAKER) (test hgpr=319) 0.05 K/ L 0.01-0.08 IMMATURE GRANULOCYTES-RELATIVE PERCENT (BEAKER) (test ppcz=2981) 0 % 0-1 POCT-GLUCOSE [id number] 21:11:00* Test Item Value Reference Range Comments POC-GLUCOSE METER (BEAKER) (test zghe=4715) 175 mg/dL 70-110 TESTED AT [facility] [address] [facility] [address] POCT-GLUCOSE [id number] 18:27:00* Test Item Value Reference Range Comments POC-GLUCOSE METER (BEAKER) (test hgxz=7136) 106 mg/dL 70-110 TESTED AT [facility] [address] [facility] [address] POCT-GLUCOSE [id number] 12:13:00* Test Item Value Reference Range Comments POC-GLUCOSE METER (BEAKER) (test omih=1988) 153 mg/dL 70-110 TESTED AT [place] [id number] [facility] [address] MR, BRAIN, WITHOUT [id number] 11:54:00FINAL REPORT MR, BRAIN, WITHOUT CONTRAST INDICATION: Strokef/u stroke, new acute severe nausea and vomiting TECHNIQUE: Multiplanar, multisequence MR imaging of the brain without intravenous contrast. COMPARISON: July 13, 2018 FINDINGS: Paramedian right pontine diffusion restriction. Central hemorrhagic changes are noted within the previously described right thalamic infarct. Global volume loss is stable. Chronic white matter changes are also stable. There is no mass effect or abnormal extra-axial fluid. The ventricles are normal in size and configuration. The larger intracranial vascular flow-voids are preserved. Paranasal sinuses and mastoid air cells are clear. There is normal bone marrow signal intensity within the calvarium and skull base. 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 Interval partial hemorrhagic conversion of previousl y described right thalamic infarct. Signed: JR Canales Robert MDReport Ve rifjuan Date/Time: 07/22/2018 11:54:40 Reading Location: [facility] Reading Room -GLUCOSE [id number] 08:15:00* Test Item Value Reference Range Comments POC-GLUCOSE METER (BEAKER) (test rejz=1484) 172 mg/dL 70-110 TESTED AT [address] [address] POCT-GLUCOSE [id number] 06:38:00* Test Item Value Reference Range Comments POC-GLUCOSE METER (BEAKER) (test udnm=2683) 84 mg/dL 70-110 TESTED AT [address] [address] POCT-GLUCOSE [id number] 22:00:00* Test Item Value Reference Range Comments POC-GLUCOSE METER (BEAKER) (test dejj=3281) 159 mg/dL 70-110 TESTED AT [address] [address] POCT-GLUCOSE [id number] 17:51:00* Test Item Value Reference Range Comments POC-GLUCOSE METER (BEAKER) (test gqim=1873) 68 mg/dL 70-110 TESTED AT [address] [address] POCT-GLUCOSE [id number] 12:07:00* Test Item Value Reference Range Comments POC-GLUCOSE METER (BEAKER) (test tdhb=2912) 138 mg/dL 70-110 TESTED AT [address] [address] POCT-GLUCOSE [id number] 06:14:00* Test Item Value Reference Range Comments POC-GLUCOSE METER (BEAKER) (test gbln=2230) 92 mg/dL 70-110 TESTED AT [place] [id number] POCT-GLUCOSE [id number] 20:32:00* Test Item Value Reference Range Comments POC-GLUCOSE METER (BEAKER) (test yzry=1930) 150 mg/dL 70-110 TESTED AT [address] [address] POCT-GLUCOSE [id number] 17:12:00* Test Item Value Reference Range Comments POC-GLUCOSE METER (BEAKER) (test ytvd=8467) 143 mg/dL 70-110 TESTED AT [place] [id number] POCT-GLUCOSE [id number] 12:41:00* Test Item Value Reference Range Comments POC-GLUCOSE METER (BEAKER) (test mngs=4754) 180 mg/dL 70-110 TESTED AT [place] [id number] POCT-GLUCOSE [id number] 06:25:00* Test Item Value Reference Range Comments POC-GLUCOSE METER (BEAKER) (test eftp=0760) 126 mg/dL 70-110 TESTED AT [place] [id number] POCT-GLUCOSE [id number] 21:13:00* Test Item Value Reference Range Comments POC-GLUCOSE METER (BEAKER) (test sdak=1239) 233 mg/dL 70-110 TESTED AT [place] [id number] POCT-GLUCOSE [id number] 16:10:00* Test Item Value Reference Range Comments POC-GLUCOSE METER (BEAKER) (test affd=0863) 179 mg/dL 70-110 TESTED AT [place] [id number] POCT-GLUCOSE [id number] 11:31:00* Test Item Value Reference Range Comments POC-GLUCOSE METER (BEAKER) (test djdl=1451) 194 mg/dL 70-110 TESTED AT [place] [id number] POCT-GLUCOSE [id number] 05:53:00* Test Item Value Reference Range Comments POC-GLUCOSE METER (BEAKER) (test dyip=8531) 120 mg/dL 70-110 TESTED AT [place] [address] COMPREHENSIVE METABOLIC [id number] 05:25:00* Test Item Value Reference Range Comments TOTAL PROTEIN (BEAKER) (test qebz=558) 6.5 gm/dL 6.0-8.3 ALBUMIN (BEAKER) (test koni=7519) 3.6 g/dL 3.5-5.0 ALKALINE PHOSPHATASE (BEAKER) (test ucjo=235) 60 U/L 40-150 BILIRUBIN TOTAL (BEAKER) (test ynpn=721) 0.4 mg/dL 0.2-1.2 SODIUM (BEAKER) (test tllc=783) 135 meq/L 136-145 POTASSIUM (BEAKER) (test tcyd=396) 4.4 meq/L 3.5-5.1 CHLORIDE (BEAKER) (test jnyt=737) 102 meq/L 98-107 CO2 (BEAKER) (test rzgf=662) 25 meq/L 22-29 BLOOD UREA NITROGEN (BEAKER) (test iwow=039) 23 mg/dL 7-21 CREATININE (BEAKER) (test lgxj=201) 0.84 mg/dL 0.57-1.25 GLUCOSE RANDOM (BEAKER) (test relo=813) 116 mg/dL 70-105 CALCIUM (BEAKER) (test fumf=836) 9.1 mg/dL 8.4-10.2 AST (SGOT) (BEAKER) (test ldsf=276) 21 U/L 5-34 ALT (SGPT) (BEAKER) (test gndd=963) 14 U/L 6-55 EGFR (BEAKER) (test cqek=8948) 65 mL/min/1.73 sq m ESTIMATED GFR IS NOT ACCURATE CREATININE CLEARANCE IN PREDICTING GLOMERULAR FILTRATION RATE. ESTIMATED GFR IS NOT APPLICABLE FOR DIALYSIS PATIENTS. CBC W/PLT COUNT & AUTO [id number] 04:45:00* Test Item Value Reference Range Comments WHITE BLOOD CELL COUNT (BEAKER) (test icxa=614) 6.7 K/ L 3.5-10.5 RED BLOOD CELL COUNT (BEAKER) (test nakg=347) 3.40 M/ L 3.93-5.22 HEMOGLOBIN (BEAKER) (test dvuv=663) 10.4 GM/DL 11.2-15.7 HEMATOCRIT (BEAKER) (test qpbc=508) 32.0 % 34.1-44.9 MEAN CORPUSCULAR VOLUME (BEAKER) (test dnjo=509) 94.1 fL 79.4-94.8 MEAN CORPUSCULAR HEMOGLOBIN (BEAKER) (test sicg=766) 30.6 pg 25.6-32.2 MEAN CORPUSCULAR HEMOGLOBIN CONC (BEAKER) (test kjvs=092) 32.5 GM/DL 32.2-35.5 RED CELL DISTRIBUTION WIDTH (BEAKER) (test bvca=602) 12.6 % 11.7-14.4 PLATELET COUNT (BEAKER) (test nows=844) 293 K/CU MM 150-450 MEAN PLATELET VOLUME (BEAKER) (test bzpw=714) 10.1 fL 9.4-12.3 NUCLEATED RED BLOOD CELLS (BEAKER) (test baii=149) 0 /100 WBC 0-0 NEUTROPHILS RELATIVE PERCENT (BEAKER) (test lfnw=635) 66 % LYMPHOCYTES RELATIVE PERCENT (BEAKER) (test yvtk=728) 19 % MONOCYTES RELATIVE PERCENT (BEAKER) (test ycvq=569) 8 % EOSINOPHILS RELATIVE PERCENT (BEAKER) (test zlzd=488) 5 % BASOPHILS RELATIVE PERCENT (BEAKER) (test jsdd=500) 1 % NEUTROPHILS ABSOLUTE COUNT (BEAKER) (test abit=517) 4.43 K/ L 1.56-6.13 LYMPHOCYTES ABSOLUTE COUNT (BEAKER) (test udpu=836) 1.26 K/ L 1.18-3.74 MONOCYTES ABSOLUTE COUNT (BEAKER) (test fjsf=804) 0.54 K/ L 0.24-0.36 EOSINOPHILS ABSOLUTE COUNT (BEAKER) (test ovri=477) 0.36 K/ L 0.04-0.36 BASOPHILS ABSOLUTE COUNT (BEAKER) (test modx=711) 0.06 K/ L 0.01-0.08 IMMATURE GRANULOCYTES-RELATIVE PERCENT (BEAKER) (test sjhp=3277) 1 % 0-1 POCT-GLUCOSE [id number] 23:23:00* Test Item Value Reference Range Comments POC-GLUCOSE METER (BEAKER) (test mxrp=9712) 245 mg/dL 70-110 TESTED AT [address] [address] POCT-GLUCOSE [id number] 20:09:00* Test Item Value Reference Range Comments POC-GLUCOSE METER (BEAKER) (test lfve=6028) 270 mg/dL 70-110 TESTED AT [address] [address] POCT-GLUCOSE [id number] 17:22:00* Test Item Value Reference Range Comments POC-GLUCOSE METER (BEAKER) (test dwve=6071) 100 mg/dL 70-110 TESTED AT [address] [address] POCT-GLUCOSE [id number] 17:01:00* Test Item Value Reference Range Comments POC-GLUCOSE METER (BEAKER) (test ycvn=5665) 63 mg/dL 70-110 Notified ROSALBA MERRILL/TESTED AT [address] [address] POCT-GLUCOSE [id number] 11:36:00* Test Item Value Reference Range Comments POC-GLUCOSE METER (BEAKER) (test mzoj=6515) 281 mg/dL 70-110 TESTED AT [address] [address] POCT-GLUCOSE [id number] 08:19:00* Test Item Value Reference Range Comments POC-GLUCOSE METER (BEAKER) (test nsif=8033) 115 mg/dL 70-110 TESTED AT [address] [address] BASIC METABOLIC [id number] 06:12:00* Test Item Value Reference Range Comments SODIUM (BEAKER) (test kzsp=404) 132 meq/L 136-145 POTASSIUM (BEAKER) (test kuct=528) 4.5 meq/L 3.5-5.1 CHLORIDE (BEAKER) (test pato=752) 101 meq/L 98-107 CO2 (BEAKER) (test dshc=212) 26 meq/L 22-29 BLOOD UREA NITROGEN (BEAKER) (test ywpr=918) 30 mg/dL 7-21 CREATININE (BEAKER) (test xjoj=079) 0.82 mg/dL 0.57-1.25 GLUCOSE RANDOM (BEAKER) (test uoen=351) 119 mg/dL 70-105 CALCIUM (BEAKER) (test hlxo=657) 9.3 mg/dL 8.4-10.2 EGFR (BEAKER) (test feel=3527) 67 mL/min/1.73 sq m ESTIMATED GFR IS NOT ACCURATE CREATININE CLEARANCE IN PREDICTING GLOMERULAR FILTRATION RATE. ESTIMATED GFR IS NOT APPLICABLE FOR DIALYSIS PATIENTS. CBC W/PLT COUNT & AUTO [id number] 05:36:00* Test Item Value Reference Range Comments WHITE BLOOD CELL COUNT (BEAKER) (test svgo=827) 6.8 K/ L 3.5-10.5 RED BLOOD CELL COUNT (BEAKER) (test jfws=663) 3.56 M/ L 3.93-5.22 HEMOGLOBIN (BEAKER) (test mpao=918) 10.7 GM/DL 11.2-15.7 HEMATOCRIT (BEAKER) (test utaw=470) 33.2 % 34.1-44.9 MEAN CORPUSCULAR VOLUME (BEAKER) (test bafh=125) 93.3 fL 79.4-94.8 MEAN CORPUSCULAR HEMOGLOBIN (BEAKER) (test knfq=839) 30.1 pg 25.6-32.2 MEAN CORPUSCULAR HEMOGLOBIN CONC (BEAKER) (test tanf=514) 32.2 GM/DL 32.2-35.5 RED CELL DISTRIBUTION WIDTH (BEAKER) (test jlrt=098) 12.6 % 11.7-14.4 PLATELET COUNT (BEAKER) (test rybs=836) 266 K/CU MM 150-450 MEAN PLATELET VOLUME (BEAKER) (test qjow=495) 9.7 fL 9.4-12.3 NUCLEATED RED BLOOD CELLS (BEAKER) (test sppj=696) 0 /100 WBC 0-0 NEUTROPHILS RELATIVE PERCENT (BEAKER) (test bueb=115) 62 % LYMPHOCYTES RELATIVE PERCENT (BEAKER) (test znvr=292) 23 % MONOCYTES RELATIVE PERCENT (BEAKER) (test ghcf=072) 8 % EOSINOPHILS RELATIVE PERCENT (BEAKER) (test tljo=133) 6 % BASOPHILS RELATIVE PERCENT (BEAKER) (test ruxu=075) 1 % NEUTROPHILS ABSOLUTE COUNT (BEAKER) (test lvao=329) 4.20 K/ L 1.56-6.13 LYMPHOCYTES ABSOLUTE COUNT (BEAKER) (test fvtv=020) 1.59 K/ L 1.18-3.74 MONOCYTES ABSOLUTE COUNT (BEAKER) (test kmhc=258) 0.55 K/ L 0.24-0.36 EOSINOPHILS ABSOLUTE COUNT (BEAKER) (test fikp=498) 0.39 K/ L 0.04-0.36 BASOPHILS ABSOLUTE COUNT (BEAKER) (test xqxi=227) 0.06 K/ L 0.01-0.08 IMMATURE GRANULOCYTES-RELATIVE PERCENT (BEAKER) (test yzia=6381) 0 % 0-1 POCT-GLUCOSE [id number] 21:27:00* Test Item Value Reference Range Comments POC-GLUCOSE METER (BEAKER) (test damj=2780) 195 mg/dL 70-110 TESTED AT [place] [id number] [facility] [address] POCT-GLUCOSE [id number] 17:15:00* Test Item Value Reference Range Comments POC-GLUCOSE METER (BEAKER) (test syad=8115) 189 mg/dL 70-110 TESTED AT [address] [address] POCT-GLUCOSE [id number] 12:27:00* Test Item Value Reference Range Comments POC-GLUCOSE METER (BEAKER) (test iaes=9327) 265 mg/dL 70-110 TESTED AT [address] [address] POCT-GLUCOSE [id number] 08:17:00* Test Item Value Reference Range Comments POC-GLUCOSE METER (BEAKER) (test tgov=5760) 122 mg/dL 70-110 TESTED AT [address] [address] BASIC METABOLIC [id number] 05:38:00* Test Item Value Reference Range Comments SODIUM (BEAKER) (test seng=043) 133 meq/L 136-145 POTASSIUM (BEAKER) (test aebv=202) 4.0 meq/L 3.5-5.1 CHLORIDE (BEAKER) (test vsio=845) 102 meq/L 98-107 CO2 (BEAKER) (test hjrn=285) 25 meq/L 22-29 BLOOD UREA NITROGEN (BEAKER) (test vwem=088) 19 mg/dL 7-21 CREATININE (BEAKER) (test etgv=177) 0.73 mg/dL 0.57-1.25 GLUCOSE RANDOM (BEAKER) (test vnfd=039) 122 mg/dL 70-105 CALCIUM (BEAKER) (test efcc=559) 9.4 mg/dL 8.4-10.2 EGFR (BEAKER) (test eqrx=0734) 76 mL/min/1.73 sq m ESTIMATED GFR IS NOT ACCURATE CREATININE CLEARANCE IN PREDICTING GLOMERULAR FILTRATION RATE. ESTIMATED GFR IS NOT APPLICABLE FOR DIALYSIS PATIENTS. CBC W/PLT COUNT & AUTO [id number] 04:58:00* Test Item Value Reference Range Comments WHITE BLOOD CELL COUNT (BEAKER) (test dpur=633) 7.4 K/ L 3.5-10.5 RED BLOOD CELL COUNT (BEAKER) (test nzzh=362) 3.51 M/ L 3.93-5.22 HEMOGLOBIN (BEAKER) (test zhod=986) 10.5 GM/DL 11.2-15.7 HEMATOCRIT (BEAKER) (test jnbg=139) 32.4 % 34.1-44.9 MEAN CORPUSCULAR VOLUME (BEAKER) (test xhwo=376) 92.3 fL 79.4-94.8 MEAN CORPUSCULAR HEMOGLOBIN (BEAKER) (test dect=524) 29.9 pg 25.6-32.2 MEAN CORPUSCULAR HEMOGLOBIN CONC (BEAKER) (test cqxy=577) 32.4 GM/DL 32.2-35.5 RED CELL DISTRIBUTION WIDTH (BEAKER) (test pclm=561) 12.7 % 11.7-14.4 PLATELET COUNT (BEAKER) (test wgtj=802) 269 K/CU MM 150-450 MEAN PLATELET VOLUME (BEAKER) (test yrcz=025) 9.8 fL 9.4-12.3 NUCLEATED RED BLOOD CELLS (BEAKER) (test saaa=246) 0 /100 WBC 0-0 NEUTROPHILS RELATIVE PERCENT (BEAKER) (test xsoz=317) 69 % LYMPHOCYTES RELATIVE PERCENT (BEAKER) (test oqif=582) 19 % MONOCYTES RELATIVE PERCENT (BEAKER) (test mkhm=900) 8 % EOSINOPHILS RELATIVE PERCENT (BEAKER) (test xsgb=818) 4 % BASOPHILS RELATIVE PERCENT (BEAKER) (test pajr=311) 1 % NEUTROPHILS ABSOLUTE COUNT (BEAKER) (test ipwg=954) 5.11 K/ L 1.56-6.13 LYMPHOCYTES ABSOLUTE COUNT (BEAKER) (test xkeb=904) 1.37 K/ L 1.18-3.74 MONOCYTES ABSOLUTE COUNT (BEAKER) (test znbx=700) 0.58 K/ L 0.24-0.36 EOSINOPHILS ABSOLUTE COUNT (BEAKER) (test wsek=986) 0.26 K/ L 0.04-0.36 BASOPHILS ABSOLUTE COUNT (BEAKER) (test iwmi=424) 0.05 K/ L 0.01-0.08 IMMATURE GRANULOCYTES-RELATIVE PERCENT (BEAKER) (test nssg=3544) 0 % 0-1 POCT-GLUCOSE [id number] 21:13:00* Test Item Value Reference Range Comments POC-GLUCOSE METER (BEAKER) (test qbvd=7734) 173 mg/dL 70-110 TESTED AT [address] [address] POCT-GLUCOSE [id number] 17:19:00* Test Item Value Reference Range Comments POC-GLUCOSE METER (BEAKER) (test ryui=1832) 219 mg/dL 70-110 TESTED AT [address] [address] POCT-GLUCOSE [id number] 11:55:00* Test Item Value Reference Range Comments POC-GLUCOSE METER (BEAKER) (test mxtx=8741) 247 mg/dL 70-110 TESTED AT [address] [address] POCT-GLUCOSE [id number] 08:49:00* Test Item Value Reference Range Comments POC-GLUCOSE METER (BEAKER) (test cnlu=9462) 138 mg/dL 70-110 TESTED AT [address] [address] CBC W/PLT COUNT & AUTO [id number] 05:25:00* Test Item Value Reference Range Comments WHITE BLOOD CELL COUNT (BEAKER) (test whxe=696) 7.5 K/ L 3.5-10.5 RED BLOOD CELL COUNT (BEAKER) (test gfss=515) 3.43 M/ L 3.93-5.22 HEMOGLOBIN (BEAKER) (test jfsm=452) 10.4 GM/DL 11.2-15.7 HEMATOCRIT (BEAKER) (test xtfe=660) 32.0 % 34.1-44.9 MEAN CORPUSCULAR VOLUME (BEAKER) (test czxa=209) 93.3 fL 79.4-94.8 MEAN CORPUSCULAR HEMOGLOBIN (BEAKER) (test ezhs=440) 30.3 pg 25.6-32.2 MEAN CORPUSCULAR HEMOGLOBIN CONC (BEAKER) (test ofte=976) 32.5 GM/DL 32.2-35.5 RED CELL DISTRIBUTION WIDTH (BEAKER) (test nsfq=047) 12.6 % 11.7-14.4 PLATELET COUNT (BEAKER) (test errk=994) 253 K/CU MM 150-450 MEAN PLATELET VOLUME (BEAKER) (test zaux=742) 9.7 fL 9.4-12.3 NUCLEATED RED BLOOD CELLS (BEAKER) (test mbol=169) 0 /100 WBC 0-0 NEUTROPHILS RELATIVE PERCENT (BEAKER) (test ltkl=782) 66 % LYMPHOCYTES RELATIVE PERCENT (BEAKER) (test xygu=995) 21 % MONOCYTES RELATIVE PERCENT (BEAKER) (test xpit=816) 8 % EOSINOPHILS RELATIVE PERCENT (BEAKER) (test qlej=551) 4 % BASOPHILS RELATIVE PERCENT (BEAKER) (test jgth=631) 1 % NEUTROPHILS ABSOLUTE COUNT (BEAKER) (test tsia=960) 4.96 K/ L 1.56-6.13 LYMPHOCYTES ABSOLUTE COUNT (BEAKER) (test iosd=385) 1.56 K/ L 1.18-3.74 MONOCYTES ABSOLUTE COUNT (BEAKER) (test hyeb=232) 0.63 K/ L 0.24-0.36 EOSINOPHILS ABSOLUTE COUNT (BEAKER) (test fljk=376) 0.32 K/ L 0.04-0.36 BASOPHILS ABSOLUTE COUNT (BEAKER) (test whfv=579) 0.05 K/ L 0.01-0.08 IMMATURE GRANULOCYTES-RELATIVE PERCENT (BEAKER) (test pdib=9767) 0 % 0-1 POCT-GLUCOSE [id number] 21:56:00* Test Item Value Reference Range Comments POC-GLUCOSE METER (BEAKER) (test hzly=5728) 152 mg/dL 70-110 TESTED AT [place] [id number] POCT-GLUCOSE [id number] 16:11:00* Test Item Value Reference Range Comments POC-GLUCOSE METER (BEAKER) (test htfs=2334) 262 mg/dL 70-110 TESTED AT [address] [address] POCT-GLUCOSE [id number] 12:18:00* Test Item Value Reference Range Comments POC-GLUCOSE METER (BEAKER) (test wbgi=3047) 271 mg/dL 70-110 TESTED AT [address] [address] POCT-GLUCOSE [id number] 08:30:00* Test Item Value Reference Range Comments POC-GLUCOSE METER (BEAKER) (test moxe=7355) 234 mg/dL 70-110 TESTED AT [address] [address] BASIC METABOLIC [id number] 05:22:00* Test Item Value Reference Range Comments SODIUM (BEAKER) (test moau=434) 132 meq/L 136-145 POTASSIUM (BEAKER) (test otaz=209) 4.3 meq/L 3.5-5.1 CHLORIDE (BEAKER) (test ontp=516) 100 meq/L 98-107 CO2 (BEAKER) (test vqrh=119) 25 meq/L 22-29 BLOOD UREA NITROGEN (BEAKER) (test oufm=227) 21 mg/dL 7-21 CREATININE (BEAKER) (test xbge=443) 0.79 mg/dL 0.57-1.25 GLUCOSE RANDOM (BEAKER) (test cfhr=660) 142 mg/dL 70-105 CALCIUM (BEAKER) (test zobi=551) 9.2 mg/dL 8.4-10.2 EGFR (BEAKER) (test whnn=1291) 70 mL/min/1.73 sq m ESTIMATED GFR IS NOT ACCURATE CREATININE CLEARANCE IN PREDICTING GLOMERULAR FILTRATION RATE. ESTIMATED GFR IS NOT APPLICABLE FOR DIALYSIS PATIENTS. CBC W/PLT COUNT & AUTO [id number] 04:57:00* Test Item Value Reference Range Comments WHITE BLOOD CELL COUNT (BEAKER) (test yhbh=374) 6.7 K/ L 3.5-10.5 RED BLOOD CELL COUNT (BEAKER) (test oebm=181) 3.33 M/ L 3.93-5.22 HEMOGLOBIN (BEAKER) (test wjda=560) 10.1 GM/DL 11.2-15.7 HEMATOCRIT (BEAKER) (test nfku=786) 30.7 % 34.1-44.9 MEAN CORPUSCULAR VOLUME (BEAKER) (test ffdr=790) 92.2 fL 79.4-94.8 MEAN CORPUSCULAR HEMOGLOBIN (BEAKER) (test bdtn=010) 30.3 pg 25.6-32.2 MEAN CORPUSCULAR HEMOGLOBIN CONC (BEAKER) (test irpc=487) 32.9 GM/DL 32.2-35.5 RED CELL DISTRIBUTION WIDTH (BEAKER) (test hglq=585) 12.8 % 11.7-14.4 PLATELET COUNT (BEAKER) (test ulid=875) 241 K/CU MM 150-450 MEAN PLATELET VOLUME (BEAKER) (test toww=503) 10.1 fL 9.4-12.3 NUCLEATED RED BLOOD CELLS (BEAKER) (test zyvn=649) 0 /100 WBC 0-0 NEUTROPHILS RELATIVE PERCENT (BEAKER) (test oyxs=233) 69 % LYMPHOCYTES RELATIVE PERCENT (BEAKER) (test grrg=536) 20 % MONOCYTES RELATIVE PERCENT (BEAKER) (test vwgc=659) 7 % EOSINOPHILS RELATIVE PERCENT (BEAKER) (test zynx=581) 3 % BASOPHILS RELATIVE PERCENT (BEAKER) (test kqns=675) 1 % NEUTROPHILS ABSOLUTE COUNT (BEAKER) (test tpdg=668) 4.62 K/ L 1.56-6.13 LYMPHOCYTES ABSOLUTE COUNT (BEAKER) (test pxow=418) 1.36 K/ L 1.18-3.74 MONOCYTES ABSOLUTE COUNT (BEAKER) (test kwyd=625) 0.47 K/ L 0.24-0.36 EOSINOPHILS ABSOLUTE COUNT (BEAKER) (test xric=590) 0.20 K/ L 0.04-0.36 BASOPHILS ABSOLUTE COUNT (BEAKER) (test fkhm=641) 0.06 K/ L 0.01-0.08 IMMATURE GRANULOCYTES-RELATIVE PERCENT (BEAKER) (test sdfu=6114) 0 % 0-1 POCT-GLUCOSE [id number] 23:48:00* Test Item Value Reference Range Comments POC-GLUCOSE METER (BEAKER) (test xlmd=5105) 228 mg/dL 70-110 TESTED AT [facility] [address] [facility] [address] FOLATE, [id number] 17:10:00* Test Item Value Reference Range Comments FOLATE (BEAKER) (test tiyb=848) 10.5 ng/mL >=7.0 POCT-GLUCOSE [id number] 16:13:00* Test Item Value Reference Range Comments POC-GLUCOSE METER (BEAKER) (test eugw=6078) 162 mg/dL 70-110 TESTED AT [place] [id number] [facility] [address] RAD, RIBS, UNILATERAL, MIN 2 VIEWS, [id number] 13:55:00Reason for exam:-> fallFINAL REPORT TECHNIQUE: Frontal chest radiograph as well [...] region. Recommend follow-up radiographs. Signed: Barbara Sheppard MDReport Verified Date/Time: 07/14/2018 13:55:29 Reading Location: [facility] Radiology Reading Room -GLUCOSE [id number] 12:12:00* Test Item Value Reference Range Comments POC-GLUCOSE METER (BEAKER) (test cktt=8575) 312 mg/dL 70-110 Notified ROSALBA MERRILL/TESTED AT [address] [address] POCT-GLUCOSE [id number] 12:01:00* Test Item Value Reference Range Comments POC-GLUCOSE METER (BEAKER) (test ndpa=5462) 148 mg/dL 70-110 TESTED AT [address] [address] POCT-GLUCOSE [id number] 08:16:00* Test Item Value Reference Range Comments POC-GLUCOSE METER (BEAKER) (test qxkg=7827) 139 mg/dL 70-110 TESTED AT [address] [address] [id number] 06:47:00* Test Item Value Reference Range Comments SODIUM (BEAKER) (test isxm=381) 134 meq/L 136-145 [id number] 00:53:00* Test Item Value Reference Range Comments SODIUM (BEAKER) (test zrir=225) 133 meq/L 136-145 POCT-GLUCOSE [id number] 22:42:00* Test Item Value Reference Range Comments POC-GLUCOSE METER (BEAKER) (test usxn=5987) 219 mg/dL 70-110 TESTED AT [address] [address] [id number] 19:27:00* Test Item Value Reference Range Comments SODIUM (BEAKER) (test fdbe=149) 133 meq/L 136-145 POCT-GLUCOSE [id number] 17:42:00* Test Item Value Reference Range Comments POC-GLUCOSE METER (BEAKER) (test gvaq=1616) 211 mg/dL 70-110 TESTED AT [facility] [address] [facility] [address] TROPONIN [id number] 17:08:00* Test Item Value Reference Range Comments TROPONIN I (BEAKER) (test cisa=554) < ng/mL 0.00-0.03 Troponin I (TnI) levels must be interpreted in the context of the presenting sym ptoms and the clinical findings. Elevated TnI levels indicate myocardial damage, but are not specific for ischemic heart disease. Elevated TnI levels are seen in patients with other cardiac conditions (including myocarditis and congestive h eart failure), and slight TnI elevations occur in patients with other conditions , including sepsis, renal failure, acidosis, acute neurological disease, and per sistent tachyarrhythmia.[id number] 13:58:00* Test Item Value Reference Range Comments SODIUM (LETICIAAKER) (test laie=902) 134 meq/L 136-145 HEMOGLOBIN [id number] 09:41:00* Test Item Value Reference Range Comments HEMOGLOBIN A1C (CRISSY) (test uqoh=889) 7.6 % 4.3-6.1 VITAMIN [id number] 09:15:00* Test Item Value Reference Range Comments VITAMIN B12 (BELOKESH) (test tkbd=192) 230 pg/mL 213-816 TSH/FREE T4 IF [id number] 07:59:00* Test Item Value Reference Range Comments THYROID STIMULATING HORMONE (LETICIAAKER) (test hxbi=869) 1.21 uIU/mL 0.35-4.94 TROPONIN [id number] 06:56:00* Test Item Value Reference Range Comments TROPONIN I (LETICIAAKER) (test tfle=407) < ng/mL 0.00-0.03 Troponin I (TnI) levels must be interpreted in the context of the presenting sym ptoms and the clinical findings. Elevated TnI levels indicate myocardial damage, but are not specific for ischemic heart disease. Elevated TnI levels are seen in patients with other cardiac conditions (including myocarditis and congestive h eart failure), and slight TnI elevations occur in patients with other conditions , including sepsis, renal failure, acidosis, acute neurological disease, and per sistent tachyarrhythmia.FastingLIPID [id number] 06:53:00* Test Item Value Reference Range Comments TRIGLYCERIDES (BEAKER) (test vpkj=448) 102 mg/dL CHOLESTEROL (BEAKER) (test cfpd=025) 178 mg/dL HDL CHOLESTEROL (BEAKER) (test dned=564) 49 mg/dL LDL CHOLESTEROL CALCULATED (BEAKER) (test pimd=922) 109 mg/dL Triglyceride Reference Range: Low Risk <150 Borderline 150-199 High Risk 200-499 Very High Risk >=500Cholesterol Reference Range: Low Risk <200 Borderline 200-239 High Risk >240HDL Cholesterol Reference Range: Low Risk >=60 High Risk <40LDL Cholesterol Reference Range: Optimal <100 Near Optimal 100-129 Borderline 130-159 High 160-189 Very High >=190 Fasting BASIC METABOLIC [id number] 06:53:00* Test Item Value Reference Range Comments SODIUM (BEAKER) (test fznh=690) 135 meq/L 136-145 POTASSIUM (BEAKER) (test rovq=027) 4.4 meq/L 3.5-5.1 CHLORIDE (BEAKER) (test rsck=949) 98 meq/L 98-107 CO2 (BEAKER) (test ywvx=862) 31 meq/L 22-29 BLOOD UREA NITROGEN (BEAKER) (test iepl=295) 15 mg/dL 7-21 CREATININE (BEAKER) (test rxzz=283) 0.76 mg/dL 0.57-1.25 GLUCOSE RANDOM (BEAKER) (test xftn=394) 108 mg/dL 70-105 CALCIUM (BEAKER) (test dniu=561) 9.9 mg/dL 8.4-10.2 EGFR (BEAKER) (test xazq=9756) 73 mL/min/1.73 sq m ESTIMATED GFR IS NOT ACCURATE CREATININE CLEARANCE IN PREDICTING GLOMERULAR FILTRATION RATE. ESTIMATED GFR IS NOT APPLICABLE FOR DIALYSIS PATIENTS. FastingCBC W/PLT COUNT & AUTO [id number] 06:03:00* Test Item Value Reference Range Comments WHITE BLOOD CELL COUNT (BEAKER) (test pbwn=671) 7.9 K/ L 3.5-10.5 RED BLOOD CELL COUNT (BEAKER) (test bjvi=596) 3.71 M/ L 3.93-5.22 HEMOGLOBIN (BEAKER) (test gzsf=723) 11.1 GM/DL 11.2-15.7 HEMATOCRIT (BEAKER) (test rjvd=254) 34.8 % 34.1-44.9 MEAN CORPUSCULAR VOLUME (BEAKER) (test uqmx=163) 93.8 fL 79.4-94.8 MEAN CORPUSCULAR HEMOGLOBIN (BEAKER) (test cyyt=781) 29.9 pg 25.6-32.2 MEAN CORPUSCULAR HEMOGLOBIN CONC (BEAKER) (test djox=304) 31.9 GM/DL 32.2-35.5 RED CELL DISTRIBUTION WIDTH (BEAKER) (test pgmu=961) 12.5 % 11.7-14.4 PLATELET COUNT (BEAKER) (test bmxu=540) 256 K/CU MM 150-450 MEAN PLATELET VOLUME (BEAKER) (test ywlp=942) 10.1 fL 9.4-12.3 NUCLEATED RED BLOOD CELLS (BEAKER) (test bkad=032) 0 /100 WBC 0-0 NEUTROPHILS RELATIVE PERCENT (BEAKER) (test tmmc=529) 64 % LYMPHOCYTES RELATIVE PERCENT (BEAKER) (test hlbk=429) 25 % MONOCYTES RELATIVE PERCENT (BEAKER) (test olut=316) 7 % EOSINOPHILS RELATIVE PERCENT (BEAKER) (test hplb=403) 4 % BASOPHILS RELATIVE PERCENT (BEAKER) (test sjsw=889) 1 % NEUTROPHILS ABSOLUTE COUNT (BEAKER) (test eycx=258) 5.01 K/ L 1.56-6.13 LYMPHOCYTES ABSOLUTE COUNT (BEAKER) (test hgcj=855) 1.93 K/ L 1.18-3.74 MONOCYTES ABSOLUTE COUNT (BEAKER) (test xcos=442) 0.52 K/ L 0.24-0.36 EOSINOPHILS ABSOLUTE COUNT (BEAKER) (test trgl=146) 0.31 K/ L 0.04-0.36 BASOPHILS ABSOLUTE COUNT (BEAKER) (test lvkh=800) 0.06 K/ L 0.01-0.08 IMMATURE GRANULOCYTES-RELATIVE PERCENT (BEAKER) (test jglv=0286) 0 % 0-1 POCT-GLUCOSE [id number] 05:14:00* Test Item Value Reference Range Comments POC-GLUCOSE METER (BEAKER) (test slev=2609) 105 mg/dL 70-110 TESTED AT [facility] [address] [facility] [address] MR, BRAIN, WITHOUT [id number] 03:19:00Patient is a candidate for endovascular intervention if there is a mismatch on DWI and Flair. STATFINAL REPORT MRI Brain without contrast Clinical History: Stroke Technique: MRI of the brain utilizing axial T2, FLAIR, GRE, DWI; sagittal and coronal T1-weighted images. Comparisons: CT head dated 07/12/2018. Findings: Acute infarction within the right thalamus. Additional possible punctate focus of restricted diffusion in the body of the right corpus callosum. Multiple bila teral T2 and FLAIR hyperintense periventricular and deep white matter foci likel y represent chronic white matter microvascular disease. 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 Remote small left thalamic infarction. There is no hydrocephalus or midline shift. There are no extra-axial fluid collections. The craniocervical junction is preserved. The major intracr anial flow-voids appear patent. Minimal mucosal thickening in the right maxilla ry sinus. Otherwise the paranasal sinuses are clear. Small amount of fluid in th e posterior nasopharynx. Middle ears and mastoid air cells are clear. Intraorbit al contents are unremarkable. No aggressive osseous or soft tissue lesions ident ified. IMPRESSION: Acute infarction within the right thalamus. Additional poss ible punctate focus of restricted diffusion in the body of the right corpus call osum. Chronic ischemic and involutional changes as described above. NOTIFICATIO N: The significant results of this study were discussed with and acknowledged by In house neurology team, by telephone on 07/13/2018 3:18 AM. Signed: Franky Dunn MDReport Verified Date/Time: 07/13/2018 03:19:36 Reading Location: [address] Neuro Reading Room , SPINE, CERVICAL, WO [id number] 02:45:00 Reason for exam:->traumaWhat is the patient's sedation requirement?->No Sedation FINAL REPORT CT Cervical spine CLINICAL HISTORY: traumafa ll TECHNIQUE: Contiguous axial images of the cervical spine with coronal and sag ittal reformations to assess the alignment. This exam was performed according to the departmental dose optimization program which includes automated exposure co ntrol, adjustment of the mA and/or kV according to the patient size, and/or use of an iterative reconstruction technique. COMPARISON: CTA head and neck dated . FINDINGS:Examination somewhat limited by motion artifact.The vertebral body heights are preserved without fracture or dislocation. There is no preverte bral soft tissue swelling. There is maintenance of the cervical curvature and al ignment. Multilevel degenerative changes with disc space narrowing resulting in at least moderate spinal canal stenosis at C4-5 and C5-6 mild spinal canal steno sis at C6-7. Uncovertebral spurring and facet hypertrophy results in multilevel neural foraminal stenosis. There are scattered subcentimeter lymph nodes in the neck. The visualized lung apices are clear. Coarse calcifications in the thyroid gland. IMPRESSION: No cervical fracture or dislocation. Multilevel degenerative changes as described above. Signed: Sunita Dunn Verified Date/ Time: 07/13/2018 02:45:40 Reading Location: [facility] C013 Neuro Reading Room El ectronically signed by: SUNITA DUNN MD on 07/13/2018 02:[address], CEREBRAL PERFUSION [id number] 00:58:00Reason for exam:->Symptom onset less than 6 hours and NIHSS 6 or greaterAddendum BeginsREPORT STATUS:A Addendum: After reprocessing the perfusion maps there is noted to be decreased cerebral blood volume in the right thalamus with associated matched decreased cerebral blood flow, increased mean transit time and time to peak. There is unmatched decreased cerebral blood flow with increased time to peak and mean transit time in the right KAJAL territory. Signed: Sunita Dunn Verified Date/Time: 07/13/2018 00:58:24 Reading Location: [address] Transitional Reading RoomAddendum EndsFINAL REPORT CT BRAIN PERFUSIONINDICATION: Stroke. TECHNIQUE: For the CT perfusion, 4 [...] to retained contrast material within the cortex. IMPR ESSION: Essentially nondiagnostic perfusion maps secondary to technical factors . Findings were discussed with neurology team windows application packager at the time of the examina tion. Signed: Sunita Dunn Verified Date/Time: 07/13/2018 00:20 :35 Reading Location: [address] Transitional Reading Room Electronically sig dalila by: SUNITA DUNN MD on 07/13/2018 12:[address], CTANG BRAIN 2018-07-12 23:26:00FINAL REPORT CLINICAL HISTORY: Stroke TECHNIQUE: Contiguous contrast-enhanced [...] reconstruction technique. COMPARISON: Same day CT head. FINDINGS:The basilar artery is patent. Common origin of the left superior cerebellar and posterior cerebral arteries. Multifocal mild stenosis in the left P2 posterior cerebral artery. Moderate stenosis in the distal right P1 posterior cerebral artery. Atherosclerotic calcifications of the carotid siphons bilaterally resulting in no more than mild stenosis in the supraclinoid left and cavernous right internal carotid arteries. Multifocal uijw-nb-gqdenkob stenosis in the M2 and M3 branches [...] branches. The major intradural venous sinuses are patent.Atherosclerotic calcification of the aortic arch and proximal brachiocephalic artery resulting in mild stenosis.There is a 15 % stenosis of the [...] are clear. Coarse calcifications within the bilateral t hyroid gland. No discrete lesions that meet size criteria for additional evaluat ion. Asymmetric enhancement of the right vocal fold, correlate with endoscopy as underlying neoplasm cannot be excluded. IMPRESSION:Multifocal intracranial athe rosclerosis resulting in multifocal stenosis. Most notably : Moderate stenosis i n the distal right P1 posterior cerebral artery. Multifocal oact-va-gqeqbwit st enosis in the M2 and M3 branches of the left MCA. Hypoplastic right A1 segment o f the anterior cerebral artery. There is multifocal [...] artery by NASCET criteria. There is 40% sten osis of the proximal left internal carotid artery by NASCET criteria. Modera te stenosis the origin of right vertebral artery. Multifocal mild stenosis of t he V2 segment of the left vertebral artery secondary to osteophytosis formation of the cervical spine. Asymmetric thickening and enhancement of the right vocal fold, correlate with endoscopy as underlying neoplasm cannot be excluded. NOTIF ICATION: The significant results of this study were discussed with and acknowled ged by In house neurology, by telephone on 07/12/2018 11:00 PM. Signed: Sunita Dunn Verified Date/Time: 07/12/2018 23:26:25 Reading Location: [address] Transitional Reading Room , [place], [id number] 23:26:00FINAL REPORT CLINICAL HISTORY: Stroke TECHNIQUE: Contiguous contrast-enhanced axial images through the neck followed by axial images through the head with coronal and sagittal reformations to assess the arterial circu lation. 3-D reconstructions were performed using a volume rendered technique sep maryanne on a workstation. This exam was performed according to the departmental dose optimization program which includes automated exposure control, adjustment of the mA and/or kV according to the patient size, and/or use of an iterative re construction technique. COMPARISON: Same day CT head. FINDINGS:The basilar arter y is patent. Common origin of the left superior cerebellar and posterior cerebra l arteries. Multifocal mild stenosis in the left P2 posterior cerebral artery. M oderate stenosis in the distal right P1 posterior cerebral artery. Atherosclerot ic calcifications of the carotid siphons bilaterally resulting in no more than m ild stenosis in the supraclinoid left and cavernous right internal carotid arter ies. Multifocal aaye-jf-bgttcybg stenosis in the M2 and M3 branches of the left MCA. Hypoplastic right A1 segment of the anterior cerebral artery. There is mult ifocal severe stenosis with short segment severe stenosis versus occlusion in th e A2 segment of the right anterior cerebral artery with distal reconstitution. M oderate stenosis of the proximal M1 right middle cerebral artery with multifocal mild stenosis in the M2 right middle cerebral artery branches. The major intra dural venous sinuses are patent.Atherosclerotic calcification of the aortic arch and proximal brachiocephalic artery resulting in mild stenosis.There is a 15 % stenosis of the proximal right internal carotid artery by NASCET criteria. Th ere is 40% stenosis of the proximal left internal carotid artery by NASCET crite eliezer. Moderate stenosis the origin of right vertebral artery. Multifocal mild stenosis of the V2 segment of the left vertebral artery secondary to osteophyto sis formation of the cervical spine. There are dorsal spondylitic changes in the cervical spine. There are scattered subcentimeter lymph nodes in the neck. The visualized lung apices are clear. Coarse calcifications within the bilateral t hyroid gland. No discrete lesions that meet size criteria for additional evaluat ion. Asymmetric enhancement of the right vocal fold, correlate with endoscopy as underlying neoplasm cannot be excluded. IMPRESSION:Multifocal intracranial athe rosclerosis resulting in multifocal stenosis. Most notably : Moderate stenosis i n the distal right P1 posterior cerebral artery. Multifocal atad-os-zxgmkssm st enosis in the M2 and M3 branches of the left MCA. Hypoplastic right A1 segment o f the anterior cerebral artery. There is multifocal [...] artery by NASCET criteria. There is 40% sten osis of the proximal left internal carotid artery by NASCET criteria. Modera te stenosis the origin of right vertebral artery. Multifocal mild stenosis of t he V2 segment of the left vertebral artery secondary to osteophytosis formation of the cervical spine. Asymmetric thickening and enhancement of the right vocal fold, correlate with endoscopy as underlying neoplasm cannot be excluded. NOTIF ICATION: The significant results of this study were discussed with and acknowled ged by In house neurology, by telephone on 07/12/2018 11:00 PM. Signed: Sunita Dunneport Verified Date/Time: 07/12/2018 23:26:25 Reading Location: [address] Transitional Reading Room ONIN [id number] 21:39:00* Test Item Value Reference Range Comments TROPONIN I (BEAKER) (test tbxp=101) < ng/mL 0.00-0.03 Troponin I (TnI) levels must be interpreted in the context of the presenting sym ptoms and the clinical findings. Elevated TnI levels indicate myocardial damage, but are not specific for ischemic heart disease. Elevated TnI levels are seen in patients with other cardiac conditions (including myocarditis and congestive h eart failure), and slight TnI elevations occur in patients with other conditions , including sepsis, renal failure, acidosis, acute neurological disease, and per sistent tachyarrhythmia.BASIC METABOLIC [id number] 21:31:00* Test Item Value Reference Range Comments SODIUM (BEAKER) (test nxrf=598) 131 meq/L 136-145 POTASSIUM (BEAKER) (test iozg=250) 4.3 meq/L 3.5-5.1 CHLORIDE (BEAKER) (test sbsa=408) 97 meq/L 98-107 CO2 (BEAKER) (test etot=297) 27 meq/L 22-29 BLOOD UREA NITROGEN (BEAKER) (test oimp=631) 17 mg/dL 7-21 CREATININE (BEAKER) (test whtl=385) 0.84 mg/dL 0.57-1.25 GLUCOSE RANDOM (BEAKER) (test zgzp=884) 182 mg/dL 70-105 CALCIUM (BEAKER) (test bttq=495) 9.7 mg/dL 8.4-10.2 EGFR (BEAKER) (test qyzj=7026) 65 mL/min/1.73 sq m ESTIMATED GFR IS NOT ACCURATE CREATININE CLEARANCE IN PREDICTING GLOMERULAR FILTRATION RATE. ESTIMATED GFR IS NOT APPLICABLE FOR DIALYSIS PATIENTS. PT/[id number] 21:28:00* Test Item Value Reference Range Comments PROTIME (BEAKER) (test lgod=429) 13.1 seconds 11.7-14.7 INR (BEAKER) (test rzpz=770) 1.0 <=5.9 PARTIAL THROMBOPLASTIN TIME (BEAKER) (test jgtr=576) 31.4 seconds 22.5-36.0 RECOMMENDED COUMADIN/WARFARIN INR THERAPY RANGESSTANDARD DOSE: 2.0 - 3.0 Inclu ann-marie: PROPHYLAXIS for venous thrombosis, systemic embolization; TREATMENT for jerrod ous thrombosis and/or pulmonary embolus.HIGH RISK: Target INR is 2.5-3.5 for pat ients with mechanical heart valves.CBC W/PLT COUNT & AUTO [id number] 21:20:00* Test Item Value Reference Range Comments WHITE BLOOD CELL COUNT (BEAKER) (test fykj=820) 6.7 K/ L 3.5-10.5 RED BLOOD CELL COUNT (BEAKER) (test aljm=986) 3.68 M/ L 3.93-5.22 HEMOGLOBIN (BEAKER) (test wjsm=175) 11.2 GM/DL 11.2-15.7 HEMATOCRIT (BEAKER) (test nhkp=404) 34.5 % 34.1-44.9 MEAN CORPUSCULAR VOLUME (BEAKER) (test fnep=252) 93.8 fL 79.4-94.8 MEAN CORPUSCULAR HEMOGLOBIN (BEAKER) (test mybz=437) 30.4 pg 25.6-32.2 MEAN CORPUSCULAR HEMOGLOBIN CONC (BEAKER) (test swre=465) 32.5 GM/DL 32.2-35.5 RED CELL DISTRIBUTION WIDTH (BEAKER) (test rlut=464) 12.6 % 11.7-14.4 PLATELET COUNT (BEAKER) (test dsso=698) 258 K/CU MM 150-450 MEAN PLATELET VOLUME (BEAKER) (test qfns=585) 10.0 fL 9.4-12.3 NUCLEATED RED BLOOD CELLS (BEAKER) (test hvfb=732) 0 /100 WBC 0-0 NEUTROPHILS RELATIVE PERCENT (BEAKER) (test igmh=271) 64 % LYMPHOCYTES RELATIVE PERCENT (BEAKER) (test vthm=375) 23 % MONOCYTES RELATIVE PERCENT (BEAKER) (test nnax=029) 7 % EOSINOPHILS RELATIVE PERCENT (BEAKER) (test aylj=528) 5 % BASOPHILS RELATIVE PERCENT (BEAKER) (test jotj=818) 1 % NEUTROPHILS ABSOLUTE COUNT (BEAKER) (test ckun=477) 4.30 K/ L 1.56-6.13 LYMPHOCYTES ABSOLUTE COUNT (BEAKER) (test zmpw=199) 1.52 K/ L 1.18-3.74 MONOCYTES ABSOLUTE COUNT (BEAKER) (test gief=838) 0.45 K/ L 0.24-0.36 EOSINOPHILS ABSOLUTE COUNT (BEAKER) (test mnpz=381) 0.35 K/ L 0.04-0.36 BASOPHILS ABSOLUTE COUNT (BEAKER) (test nuzz=747) 0.05 K/ L 0.01-0.08 IMMATURE GRANULOCYTES-RELATIVE PERCENT (BEAKER) (test jtyz=4097) 0 % 0-1 RAD, CHEST, 1 VIEW, NON [id number] 21:06:00Reason for exam:->CHEST PAINShould this be performed at the bedside?->YesFINAL REPORT Chest, 1 view. History: Chest pain Comparison: Plain radiograph chest dated 06/07/2007. Impression: Low lung volumes. Unchanged scarring versus atelectasis in left midlung. The cardiomediastinal silhouette and pulmonary vasculature are within normal limits for a portable exam. No lobar consolidation or effusion. No pneumothorax. Atherosclerotic calcifications of the thoracic aorta. The soft tissues and osseous structures are intact. Signed: Sunita Dunn Verified Date/Time: 07/12/2018 21:06:32 Reading Location: [facility] C013T Transitional Reading Room -GLUCOSE [id number] 20:56:00* Test Item Value Reference Range Comments POC-GLUCOSE METER (BEAKER) (test zoaw=8412) 191 mg/dL 70-110 TESTED AT [facility] [address] [facility] [address] [address], BRAIN/STROKE [id number] 20:24:00Reason for exam:->strokeWhat is the patient's sedation requirement?->No SedationFINAL REPORT CT head without contrast 07/12/2018 8:18 PM CLINICAL HISTORY: Stroke TECHNIQUE: Axial noncontrast CT images through the head were obtained. This examination was performed according to our departmental dose optimization program, which includes automated exposure control, adjustment of the mA and/or kV according to patient size, and/or use of iterated reconstruction technique. COMPARISON: 10/24/2016 FINDINGS: There is an acute appearing nonhemorrhagic infarct in the anterior right thalamus. Mass effect results in effacement of the third ventricle, with shallow leftward deviation of the midline. There is no obstructive hydrocephalus or parenchymal herniation. There is a subcentimeter dural calcifications are incidental meningioma overlying the right parietal convexity. 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 There are tiny chronic-appearing infarcts in the cerebellum. There is mild microvascu lar ischemia in the supratentorial white matter. There is atherosclerotic calcif ication of the intracranial arterial vasculature. There is generalized parenchym al volume loss. The visualized paranasal sinuses and mastoid air cells are well aerated. The skull is intact. IMPRESSION: Acute-appearing right thalamic infarc t. Chronic appearing findings as discussed. Findings were discussed with Dr. Roxy hansen on 07/12/2018 at 2020. Signed: Mazin Camara Verified Date/Time: 09/12/2017 20:24:17 Reading Location: [facility] Radiology Reading Room Anabella ctronically signed by: MAZIN CAMARA M.D. on 07/12/2018 08:24 PM RAD, SPINE, LUMBAR, COMPLETE (MIN 4 VIEWS)2018-06-05 12:59:00Reason for exam:->BACK PAIN FINAL REPORT Lumbar spine, five images HISTORY: Back pain COMPARISON: None IMPRESSION:Five lumbar type vertebral bodies. No evidence of f racture. Multilevel degenerative facet changes, moderate. Grade 1 anterolisthesi s of L4 on L5, likely degenerative. Atherosclerosis. Signed: Juliano Salinasrt Verified Date/Time: 06/05/2018 12:59:10 Reading Location: [facility] C0[facility] Consult Reading Room
--- NOTE | 2018-10-05 14:42 | NUR ---
ON ARRIVAL ASKING QUESTIONS FOR TRIAGE, DAUGHTER UPSET PT NOT ANSWERING QUESTIONS AND/OR FOLLOWING DIRECTIONS. STATES PT NOT WEARING HEARING AIDS, BUT SOMETIMES MADE EYE CONTACT WITH PT AND PT STILL DID NOT FOLLOW DIRECTIONS IN [place]. DIRECTOR OF [employer]OT[employer] COMPUTER OBTAINED AND ID #[id number] FE USED. PT'S DAUGHTER STATED, "THIS IS POINTLESS." THAT PT WASN'T PAYING ATTENTION. REGISTRATION BILINGUAL ALSO HELPING WITH PT [place]. DAUGHTER BILINGUAL WELL. DAUGHTER SEEMED UPSET WITH SITUATION AND PT AND STAFF. EXPLAINED PLAN OF CARE AND ER PROCEDURES. PT'S DAUGHTER WITH CROSSED ARMS AND VERY BEATRIZ WITH STAFF. MULTIPLE ATTEMPTS TO SATISFY PT/FM. CONTINUED TO EXPLAIN CARE AND UPDATED OF RESULTS. MD WELL EXTENSIVE EFFORTS TO CARE FOR AND SATISFY PT/FM. PT REMAINS STABLE.
--- NOTE | 2018-10-05 14:47 | NUR ---
CD OF IMAGING BEING MADE FOR PT/FM WELL
--- NOTE | 2018-10-05 14:50 | NUR ---
UPDATED PT/FM OF PENDING D DIMER RUNNING AND RADIOLOGIST READING FILMS.
--- NOTE | 2018-10-05 14:57 | NUR ---
+D DIMER. DR TO ROOM TO DISCUSS FINDINGS AND NEED FOR VENOUS DOPPLER. INFORMING PT/FM OF ETA OF TECH AND LENGTH OF TEST TIL RESULT.
--- NOTE | 2018-10-05 15:09 | NUR ---
RN/MD EXPLAINED TIME AND REASON FOR TESTING AND OPTIONS OF OUTPT VS AMA
--- NOTE | 2018-10-05 15:13 | NUR ---
[facility] CALLED TO SAY THEY WOULD BE ANOTHER 30-40 MORE MINS FOR ETA.
[2018-10-05] MEDS ORDERED: ACETAMINOPHEN 325 MG TAB PO ONE (15:15)
--- NOTE | 2018-10-05 15:19 | Diagnostic Imaging Report ---
Exam: Left shoulder 2 views History: Pain Comparison: None. Findings: No fracture or malalignment. Multifocal acromioclavicular arthrosis. Downsloping acromion. No abnormal soft tissue calcification or soft tissue defect. Impression: No acute osseous abnormality Signed by: Dr. Horacio Mckeon M.D. on 10/05/2018 3:16 PM
--- NOTE | 2018-10-05 15:44 | NUR ---
PTS DAUGHTER HAD QUESTIONS REGARDING PLAVIX AND CLOTS. ALL QUESTIONS ANSWERED TO DAUGHTER'S SATISFACTION. SEAT BUILDER HERE FOR [place] AND PT/FM AWARE.
--- NOTE | 2018-10-05 16:41 | NUR ---
PT GIVEN COPIES OF ALL TESTING. OFFERED TO TAKE PT OUT TO CAR IN W/C IF NEEDED. PT/FM STATED THEY WERE OK.
--- NOTE | 2018-10-05 18:13 | Diagnostic Imaging Report ---
EXAM: Bilateral Lower Extremity Duplex Ultrasound INDICATION: COMPARISON: None TECHNIQUE: Blanco scale, color Doppler and spectral waveform analysis of the bilateral lower extremities deep venous system was performed. FINDINGS: Right Lower Extremity: Common Femoral: Fully compressible with normal spontaneous waveforms. Proximal Greater Saphenous: Fully compressible. Femoral: Fully compressible with normal spontaneous waveforms. Normal response to augmentation. Proximal Deep Femoral: Normal spontaneous waveforms. Popliteal: Fully compressible with normal spontaneous waveforms. Left Lower Extremity: Common Femoral: Fully compressible with normal spontaneous waveforms. Proximal Greater Saphenous: Fully compressible. Femoral: Fully compressible with normal spontaneous waveforms. Normal response to augmentation. Proximal Deep Femoral: Normal spontaneous waveforms. Popliteal: Fully compressible with normal spontaneous waveforms. IMPRESSION: No evidence of deep venous thrombosis above the bilateral calfs. Signed by: Dr. Lori Yu M.D. on 10/05/2018 6:10 PM
== END 2018-10-05 16:45 | disposition home or self-care (01) ==
LOC: FSED 13:14
DX: M79.622 Pain in left upper arm (principal); M25.512 Pain in left shoulder; M19.012 Primary osteoarthritis, left shoulder; R26.2 Difficulty in walking, not elsewhere classified; I69.854 Hemiplegia and hemiparesis following other cerebrovascular disease affecting left non-dominant side; M79.89 Other specified soft tissue disorders; I10 Essential (primary) hypertension
CPT/HCPCS: 80053; 82553; 83880; 84484; 85025; 85379; 93970; 99284

== ENCOUNTER 2020-11-13 08:48 | Emergency (ER) | payer MEDICARE ==
[~2020-11-13] VITALS: Ht 152.4 cm; Wt 77.1 kg
[2020-11-13] MEDS ORDERED: TETANUS/DIPHTHERIA TOX ADULT 0.5 ML SYR IM ONE (09:00)
[2020-11-13 09:29] LABS: BASOPHILS # (AUTO) 0.1 (0.0-0.1); BASOPHILS % 0.8 % (0.0-1.0); EOSINOPHILS # (AUTO) 0.3 (0.0-0.4); EOSINOPHILS % 3.6 % (0.0-6.0); HEMATOCRIT 32.3 % (34.2-44.1); HEMOGLOBIN 10.9 g/dL (12.0-16.0); LYMPHOCYTES # (AUTO) 1.6 (1.0-3.2); LYMPHOCYTES % 17.1 % (18.0-39.1); MEAN CORPUSCULAR HEMOGLOBIN 31.1 pg (28-32); MEAN CORPUSCULAR HGB CONC 33.7 g/dL (31-35); MONOCYTES # (AUTO) 0.6 (0.2-0.8); MONOCYTES % 6.6 % (4.4-11.3); NEUTROPHILS # (AUTO) 6.8 (2.1-6.9); NEUTROPHILS % 71.5 % (38.7-80.0); PLATELET COUNT 330 x10e3/uL (140-360); RED BLOOD COUNT 3.51 x10e6/uL (3.6-5.1); RED CELL DISTRIBUTION WIDTH 13.1 % (11.7-14.4)
[2020-11-13 09:48] LABS: ALANINE AMINOTRANSFERASE 10 IU/L (0-55); ALBUMIN 3.8 g/dL (3.5-5.0); ALBUMIN/GLOBULIN RATIO 1.4 (0.8-2.0); ALKALINE PHOSPHATASE 59 IU/L (40-150); ANION GAP 12.6 mmol/L (8-16); BLOOD UREA NITROGEN 13 mg/dL (7-26); BUN/CREATININE RATIO 16 (6-25); CALCIUM 9.1 mg/dL (8.4-10.2); CARBON DIOXIDE 23 mmol/L (22-29); CHLORIDE 101 mmol/L (98-107); CREATININE, SERUM 0.79 mg/dL (0.57-1.11); EST GLOMERULAR FILTRATION RATE > 60 ML/MIN (60-); GLUCOSE 166 mg/dL (74-118); POTASSIUM 3.6 mmol/L (3.5-5.1); SODIUM 133 mmol/L (136-145)
[2020-11-13] MEDS ORDERED: LEXAPRO20 MG PO (10:52)
[2020-11-13] MEDS ORDERED: DIOVAN160 MG PO (10:52)
[2020-11-13] MEDS ORDERED: NEURONTIN100 MG PO (10:52)
[2020-11-13] MEDS ORDERED: ATORVASTATIN CA20 MG PO (10:52)
[2020-11-13] MEDS ORDERED: CLOPIDOGREL75 MG PO (10:52)
[2020-11-13] MEDS ORDERED: NIFEDIPINE ER30 M1 PO (10:52)
[2020-11-13] MEDS ORDERED: ASPIRIN EC81 MG PO (10:52)
[2020-11-13] MEDS ORDERED: LEVOTHYROXINE88 MCG PO (10:52)
[2020-11-13] MEDS ORDERED: METOPROLOL TART50 MG PO (10:52)
[2020-11-13] MEDS ORDERED: METFORMIN HCL500 MG PO (10:52)
[2020-11-13] MEDS ORDERED: DILTIAZEM HCL 125 ML IV SCH (11:00)
[2020-11-13 11:04] LABS: INR 0.89; PROTHROMBIN TIME 12.6 seconds (11.9-14.5)
[2020-11-13] MEDS ORDERED: FENTANYL CITRATE/PF 100MCG/2 ML INJ IV PRN (12:15)
[2020-11-13] MEDS ORDERED: ONDANSETRON HCL INJ 2MG/ML 2ML 2 MG/ML VIAL IV STA (13:00)
== END 2020-11-13 13:36 | disposition other institution (70) ==
LOC: ER 09:03
DX: S06.6X0A Traumatic subarachnoid hemorrhage without loss of consciousness, initial encounter (principal); W06.XXXA Fall from bed, initial encounter; Y93.84 Activity, sleeping; Y92.003 Bedroom of unspecified non-institutional (private) residence as the place of occurrence of the external cause; I10 Essential (primary) hypertension; E11.65 Type 2 diabetes mellitus with hyperglycemia; E78.5 Hyperlipidemia, unspecified; E03.9 Hypothyroidism, unspecified; Z20.822 Contact with and (suspected) exposure to COVID-19; Z86.73 Personal history of transient ischemic attack (TIA), and cerebral infarction without residual deficits
CPT/HCPCS: 36415; 70450; 71045; 72125; 72170; 80053; 82550; 85025; 85610; 90471; 90714; 99285; J3010; U0002

== ENCOUNTER 2020-12-30 08:27 | Inpatient (IN) | payer MEDICARE ==
[~2020-12-30] VITALS: Ht 152.4 cm; Wt 77.1 kg
[~2020-12-30 08:27] MED LIST: ASPIRIN EC81 MG PO; ATORVASTATIN CA20 MG PO; CLOPIDOGREL75 MG PO; DIOVAN160 MG PO; LEVOTHYROXINE88 MCG PO; LEXAPRO20 MG PO; METFORMIN HCL500 MG PO; METOPROLOL TART50 MG PO; NEURONTIN100 MG PO; NIFEDIPINE ER30 M1 PO
[2020-12-30] MEDS ORDERED: ONDANSETRON HCL INJ 2MG/ML 2ML 2 MG/ML VIAL IV STA (09:13)
[2020-12-30] MEDS ORDERED: SODIUM CHLORIDE 0.9% 1000ML 1,000 ML IV STA (09:13)
[2020-12-30] MEDS ORDERED: PANTOPRAZOLE 40 MG 10ML VIAL IV STA (09:13)
[2020-12-30 09:44] LABS: BASOPHILS # (AUTO) 0.2 (0.0-0.1); BASOPHILS % 0.7 % (0.0-1.0); EOSINOPHILS # (AUTO) 0.2 (0.0-0.4); EOSINOPHILS % 0.8 % (0.0-6.0); HEMATOCRIT 33.3 % (34.2-44.1); HEMOGLOBIN 11.1 g/dL (12.0-16.0); LYMPHOCYTES # (AUTO) 0.6 (1.0-3.2); LYMPHOCYTES % 2.3 % (18.0-39.1); MEAN CORPUSCULAR HEMOGLOBIN 30.5 pg (28-32); MEAN CORPUSCULAR HGB CONC 33.3 g/dL (31-35); MEAN CORPUSCULAR VOLUME 91.5 fL (81-99); MONOCYTES # (AUTO) 0.7 (0.2-0.8); MONOCYTES % 2.6 % (4.4-11.3); NEUTROPHILS % 90.7 % (38.7-80.0); PLATELET COUNT 233 x10e3/uL (140-360); RED BLOOD COUNT 3.64 x10e6/uL (3.6-5.1); RED CELL DISTRIBUTION WIDTH 14.1 % (11.7-14.4)
[2020-12-30 09:59] LABS: INR 0.93; PARTIAL THROMBOPLASTIN TIME 36.5 seconds (23.8-35.5); PROTHROMBIN TIME 13.1 seconds (11.9-14.5)
[2020-12-30 10:13] LABS: ALANINE AMINOTRANSFERASE 129 IU/L (0-55); ALBUMIN 2.4 g/dL (3.5-5.0); ALBUMIN/GLOBULIN RATIO 0.6 (0.8-2.0); ALKALINE PHOSPHATASE 286 IU/L (40-150); ANION GAP 18.7 mmol/L (8-16); BLOOD UREA NITROGEN 51 mg/dL (7-26); BUN/CREATININE RATIO 61 (6-25); CALCIUM 9.7 mg/dL (8.4-10.2); CARBON DIOXIDE 24 mmol/L (22-29); CHLORIDE 96 mmol/L (98-107); CREATINE KINASE 33 IU/L (29-168); CREATININE, SERUM 0.83 mg/dL (0.57-1.11); EST GLOMERULAR FILTRATION RATE > 60 ML/MIN (60-); GLUCOSE 299 mg/dL (74-118); MAGNESIUM 1.7 MG/DL (1.3-2.1); POTASSIUM 3.7 mmol/L (3.5-5.1); SODIUM 135 mmol/L (136-145)
[2020-12-30 10:43] LABS: BAND NEUTROPHILS % (MANUAL) 9 %; LYMPHOCYTES % (MANUAL) 3 % (19-48); MONOCYTES % (MANUAL) 1 % (3.4-9.0); NEUTROPHILS % (MANUAL) 87 % (40-74); PLATELET ESTIMATE ADEQUATE; PLATELET MORPHOLOGY COMMENT NORMAL; RBC MORPHOLOGY COMMENT NORMAL
[2020-12-30] MEDS ORDERED: SODIUM CHLORIDE 0.9% 50ML 50 ML ONE (11:13)
[2020-12-30] MEDS ORDERED: IOPAMIDOL 370 MG/ML 200 ML INFUS..BTL INJ ONE (11:14)
[2020-12-30 12:03] LABS: CLARITY,URINE HAZY (CLEAR); COLOR,URINE YELLOW (YELLOW); KETONES,URINE NEGATIVE (NEGATIVE); LEUKOCYTE ESTERASE ,URINE NEGATIVE (NEGATIVE); NITRITE,URINE NEGATIVE (NEGATIVE); PROTEIN,URINE DIPSTICK 2+ (NEGATIVE)
[2020-12-30 12:05] LABS: AMYLASE 35 U/L (25-125); LIPASE 30 U/L (8-78)
[2020-12-30] MEDS: PIPERACILLIN/TAZOBAC 3.375 GM in SODIUM CHLORIDE 0.9% 50ML 50 ML IV SCH ×2 (12:09→19:45)
[2020-12-30] MEDS: SODIUM CHLORIDE 0.9% 1000ML 1,000 ML IV SCH ×2 (12:10→21:44)
[2020-12-30 12:22] LABS: BACTERIA,URINE MANY /HPF; EPITHELIAL CELLS,URINE FEW /LPF; RENAL EPITHELIAL CELLS,URINE FEW; TRANSITIONAL EPI CELLS,URINE FEW
[2020-12-30 17:28] VITALS: BP 107/51
[2020-12-30] MEDS ORDERED: DEXTROSE 50% SYRINGE 50 ML IV PRN (18:30)
[2020-12-30 19:53] LABS: CREATINE KINASE MB 0.4 ng/mL (0-5.0)
[2020-12-30 20:00] VITALS: BP 100/53
[2020-12-30] MEDS: INSULIN REGULAR, HUMAN 100 UNIT/1 ML 3ML VIAL SQ SCH (21:00)
[2020-12-31] VITALS: BP 101/50
[2020-12-31] MEDS ORDERED: METRONIDAZOLE 750MG/NS 150ML 150 ML IV STA (00:51)
[2020-12-31] MEDS ORDERED: LEVOFLOXACIN 500MG/D5W 100ML 100 ML IV ONE (01:00)
[2020-12-31] MEDS: PIPERACILLIN/TAZOBAC 3.375 GM in SODIUM CHLORIDE 0.9% 50ML 50 ML IV SCH ×4 (01:13→18:34)
[2020-12-31 01:21] LABS: BASOPHILS % 0.1 % (0.0-1.0); EOSINOPHILS % 0.1 % (0.0-6.0); HEMATOCRIT 30.7 % (34.2-44.1); HEMOGLOBIN 10.1 g/dL (12.0-16.0); LYMPHOCYTES # (AUTO) 0.5 (1.0-3.2); LYMPHOCYTES % 3.2 % (18.0-39.1); MEAN CORPUSCULAR HEMOGLOBIN 30.4 pg (28-32); MEAN CORPUSCULAR HGB CONC 32.9 g/dL (31-35); MEAN CORPUSCULAR VOLUME 92.5 fL (81-99); MONOCYTES # (AUTO) 0.4 (0.2-0.8); MONOCYTES % 2.8 % (4.4-11.3); NEUTROPHILS # (AUTO) 14.6 (2.1-6.9); NEUTROPHILS % 93.1 % (38.7-80.0); PLATELET COUNT 193 x10e3/uL (140-360); RED BLOOD COUNT 3.32 x10e6/uL (3.6-5.1); RED CELL DISTRIBUTION WIDTH 14.4 % (11.7-14.4)
[2020-12-31] MEDS ORDERED: SODIUM CHLORIDE 0.9% 250ML 250 ML ONE (01:39)
[2020-12-31 01:44] LABS: CREATINE KINASE MB 0.4 ng/mL (0-5.0)
[2020-12-31 02:00] LABS: ALANINE AMINOTRANSFERASE 103 IU/L (0-55); ALBUMIN 1.9 g/dL (3.5-5.0); ALBUMIN/GLOBULIN RATIO 0.5 (0.8-2.0); ALKALINE PHOSPHATASE 245 IU/L (40-150); ANION GAP 13.6 mmol/L (8-16); BLOOD UREA NITROGEN 47 mg/dL (7-26); BUN/CREATININE RATIO 64 (6-25); CALCIUM 8.4 mg/dL (8.4-10.2); CARBON DIOXIDE 23 mmol/L (22-29); CHLORIDE 105 mmol/L (98-107); CREATININE, SERUM 0.74 mg/dL (0.57-1.11); EST GLOMERULAR FILTRATION RATE > 60 ML/MIN (60-); GLUCOSE 174 mg/dL (74-118); POTASSIUM 3.6 mmol/L (3.5-5.1); SODIUM 138 mmol/L (136-145)
[2020-12-31] MEDS: SODIUM CHLORIDE 0.9% 1000ML 1,000 ML IV SCH ×2 (03:44→18:34)
[2020-12-31 04:00] VITALS: BP 107/55
[2020-12-31 05:25] LABS: BASOPHILS % 0.3 % (0.0-1.0); EOSINOPHILS % 0.1 % (0.0-6.0); HEMATOCRIT 29.6 % (34.2-44.1); HEMOGLOBIN 9.8 g/dL (12.0-16.0); LYMPHOCYTES # (AUTO) 0.5 (1.0-3.2); LYMPHOCYTES % 3.4 % (18.0-39.1); MEAN CORPUSCULAR HEMOGLOBIN 31.2 pg (28-32); MEAN CORPUSCULAR HGB CONC 33.1 g/dL (31-35); MEAN CORPUSCULAR VOLUME 94.3 fL (81-99); MONOCYTES # (AUTO) 0.4 (0.2-0.8); NEUTROPHILS # (AUTO) 13.7 (2.1-6.9); NEUTROPHILS % 92.3 % (38.7-80.0); PLATELET COUNT 167 x10e3/uL (140-360); RED BLOOD COUNT 3.14 x10e6/uL (3.6-5.1); RED CELL DISTRIBUTION WIDTH 14.6 % (11.7-14.4)
[2020-12-31 06:06] LABS: ALANINE AMINOTRANSFERASE 97 IU/L (0-55); ALBUMIN 1.9 g/dL (3.5-5.0); ALBUMIN/GLOBULIN RATIO 0.5 (0.8-2.0); ALKALINE PHOSPHATASE 282 IU/L (40-150); ANION GAP 15.5 mmol/L (8-16); BLOOD UREA NITROGEN 46 mg/dL (7-26); BUN/CREATININE RATIO 61 (6-25); CALCIUM 8.6 mg/dL (8.4-10.2); CARBON DIOXIDE 23 mmol/L (22-29); CHLORIDE 104 mmol/L (98-107); CREATININE, SERUM 0.75 mg/dL (0.57-1.11); EST GLOMERULAR FILTRATION RATE > 60 ML/MIN (60-); GLUCOSE 162 mg/dL (74-118); POTASSIUM 3.5 mmol/L (3.5-5.1); SODIUM 139 mmol/L (136-145)
[2020-12-31] MEDS: METRONIDAZOLE 500MG/NS 100ML 100 ML IV SCH ×3 (06:35→18:34)
[2020-12-31] MEDS: INSULIN REGULAR, HUMAN 100 UNIT/1 ML 3ML VIAL SQ SCH ×4 (07:30→21:00)
[2020-12-31 08:29] VITALS: BP 116/50
[2020-12-31] MEDS: FAMOTIDINE 20 MG/2 ML VIAL IV SCH (09:06)
[2020-12-31 09:18] LABS: BAND NEUTROPHILS % (MANUAL) 6 %; LYMPHOCYTES % (MANUAL) 3 % (19-48); MONOCYTES % (MANUAL) 4 % (3.4-9.0); NEUTROPHILS % (MANUAL) 87 % (40-74); PLATELET ESTIMATE ADEQUATE
[2020-12-31 09:19] LABS: ANISOCYTOSIS SLIGHT; BURR CELLS SLIGHT; TEAR DROP CELLS FEW
[2020-12-31 09:20] LABS: OVALOCYTES FEW; PLATELET MORPHOLOGY COMMENT FEW LARGE; RBC MORPHOLOGY COMMENT ABNORMAL
[2020-12-31 09:43] LABS: CREATINE KINASE MB 0.4 ng/mL (0-5.0)
[2020-12-31 10:18] VITALS: BP 116/50
[2020-12-31 15:45] VITALS: BP 125/59
[2020-12-31] MEDS ORDERED: INDOMETHACIN 50 MG SUPP.RECT RC ONE (15:49)
[2020-12-31] MEDS ORDERED: IOPAMIDOL 300MG/ML 50ML INFUS..BTL IV ONE (15:50)
[2020-12-31] MEDS ORDERED: SUGAMMADEX SODIUM 200 MG/2 ML VIAL IV ONE (15:56)
[2020-12-31] MEDS ORDERED: GLUCAGON FOR INJ 1 MG VIAL ONE (16:21)
[2020-12-31] MEDS ORDERED: ENOXAPARIN 30 MG/0.3 ML SYR SC SCH (17:00)
[2020-12-31] MEDS ORDERED: DEXAMETHASONE SOD PHOS INJ 4 MG/ML VIAL ONE (17:44)
[2020-12-31] MEDS ORDERED: SEVOFLURANE INHAL SOLN 250 ML PEN BTL ONE (17:44)
[2020-12-31] MEDS ORDERED: ROCURONIUM BROMIDE 10 MG/ML 5ML VIAL IV ONE (17:44)
[2020-12-31] MEDS ORDERED: PROPOFOL IV EMULSION 10 MG/ML 20 ML VIAL ONE (17:44)
[2020-12-31] MEDS ORDERED: ONDANSETRON HCL INJ 2MG/ML 2ML 2 MG/ML VIAL ONE (17:44)
[2020-12-31] MEDS ORDERED: POVIDONE IODINE 0.05% 0.05 % ML PO ONE (17:44)
[2020-12-31 20:00] VITALS: BP 130/76
[2021-01-01] VITALS (8 sets, daily range): BP systolic 125–145; BP diastolic 56–69
[2021-01-01] MEDS: METRONIDAZOLE 500MG/NS 100ML 100 ML IV SCH ×5 (00:39→23:43)
[2021-01-01] MEDS: PIPERACILLIN/TAZOBAC 3.375 GM in SODIUM CHLORIDE 0.9% 50ML 50 ML IV SCH ×5 (00:39→23:43)
[2021-01-01] MEDS: SODIUM CHLORIDE 0.9% 1000ML 1,000 ML IV SCH ×2 (05:54→17:04)
[2021-01-01] MEDS: INSULIN REGULAR, HUMAN 100 UNIT/1 ML 3ML VIAL SQ SCH ×4 (08:45→20:44)
[2021-01-01] MEDS: FAMOTIDINE 20 MG/2 ML VIAL IV SCH (09:22)
[2021-01-01] MEDS ORDERED: ALBUTEROL/IPRATROPIUM 3 ML NEB NEB PRN (14:45)
[2021-01-02] VITALS (7 sets, daily range): BP systolic 155–180; BP diastolic 60–71
[2021-01-02] MEDS: SODIUM CHLORIDE 0.9% 1000ML 1,000 ML IV SCH (03:05)
[2021-01-02 05:13] LABS: BASOPHILS % 0.3 % (0.0-1.0); EOSINOPHILS # (AUTO) 0.3 (0.0-0.4); EOSINOPHILS % 2.4 % (0.0-6.0); HEMATOCRIT 29.9 % (34.2-44.1); HEMOGLOBIN 9.6 g/dL (12.0-16.0); LYMPHOCYTES % 9.4 % (18.0-39.1); MEAN CORPUSCULAR HEMOGLOBIN 29.9 pg (28-32); MEAN CORPUSCULAR HGB CONC 32.1 g/dL (31-35); MEAN CORPUSCULAR VOLUME 93.1 fL (81-99); MONOCYTES # (AUTO) 0.6 (0.2-0.8); MONOCYTES % 5.1 % (4.4-11.3); NEUTROPHILS # (AUTO) 8.8 (2.1-6.9); NEUTROPHILS % 80.8 % (38.7-80.0); PLATELET COUNT 202 x10e3/uL (140-360); RED BLOOD COUNT 3.21 x10e6/uL (3.6-5.1); RED CELL DISTRIBUTION WIDTH 14.5 % (11.7-14.4)
[2021-01-02] MEDS: PIPERACILLIN/TAZOBAC 3.375 GM in SODIUM CHLORIDE 0.9% 50ML 50 ML IV SCH ×3 (05:23→18:31)
[2021-01-02] MEDS: METRONIDAZOLE 500MG/NS 100ML 100 ML IV SCH ×3 (05:23→17:29)
[2021-01-02 06:04] LABS: ALANINE AMINOTRANSFERASE 41 IU/L (0-55); ALBUMIN 1.8 g/dL (3.5-5.0); ALBUMIN/GLOBULIN RATIO 0.6 (0.8-2.0); ALKALINE PHOSPHATASE 232 IU/L (40-150); ANION GAP 11.4 mmol/L (8-16); BLOOD UREA NITROGEN 21 mg/dL (7-26); BUN/CREATININE RATIO 36 (6-25); CALCIUM 7.7 mg/dL (8.4-10.2); CARBON DIOXIDE 21 mmol/L (22-29); CHLORIDE 113 mmol/L (98-107); CREATININE, SERUM 0.58 mg/dL (0.57-1.11); EST GLOMERULAR FILTRATION RATE > 60 ML/MIN (60-); GLUCOSE 82 mg/dL (74-118); POTASSIUM 3.4 mmol/L (3.5-5.1); SODIUM 142 mmol/L (136-145)
[2021-01-02] MEDS: INSULIN REGULAR, HUMAN 100 UNIT/1 ML 3ML VIAL SQ SCH ×4 (07:30→21:00)
[2021-01-02] MEDS ORDERED: POTASSIUM CHLORIDE 20 MEQ TAB CR PO ONE (08:30)
[2021-01-02] MEDS: FAMOTIDINE 20 MG/2 ML VIAL IV SCH (09:20)
[2021-01-02] MEDS: HYDRALAZINE HCL 20 MG/ML VIAL IV PRN ×2 (09:21→22:33)
[2021-01-02] MEDS: ONDANSETRON HCL INJ 2MG/ML 2ML 2 MG/ML VIAL IV PRN ×2 (09:24→21:27)
[2021-01-02] MEDS: ACETAMINOPHEN 325 MG TAB PO PRN (12:07)
[2021-01-02] MEDS: CHOLESTYRAMINE 4 GM PACKET PO SCH ×2 (15:50→21:24)
[2021-01-02] MEDS: METOPROLOL TARTRATE 50 MG TAB PO SCH (17:32)
[2021-01-02] MEDS: MORPHINE SULFATE INJ 2 MG/ML SYR IV PRN (21:25)
[2021-01-03] VITALS (8 sets, daily range): BP systolic 104–161; BP diastolic 52–67
[2021-01-03] MEDS: METRONIDAZOLE 500MG/NS 100ML 100 ML IV SCH ×4 (00:12→17:00)
[2021-01-03] MEDS: PIPERACILLIN/TAZOBAC 3.375 GM in SODIUM CHLORIDE 0.9% 50ML 50 ML IV SCH ×4 (00:12→18:31)
[2021-01-03] MEDS: LEVOTHYROXINE SODIUM 88 MCG TAB PO SCH (06:17)
[2021-01-03] MEDS: INSULIN REGULAR, HUMAN 100 UNIT/1 ML 3ML VIAL SQ SCH ×4 (07:23→21:00)
[2021-01-03] MEDS: METOPROLOL TARTRATE 50 MG TAB PO SCH ×2 (08:52→17:00)
[2021-01-03] MEDS: VALSARTAN 160 MG TAB PO SCH (08:52)
[2021-01-03] MEDS: FAMOTIDINE 20 MG/2 ML VIAL IV SCH (08:52)
[2021-01-03] MEDS: CHOLESTYRAMINE 4 GM PACKET PO SCH ×3 (08:53→20:12)
[2021-01-03] MEDS: NIFEDIPINE CR 30 MG TAB PO SCH (08:53)
[2021-01-03] MEDS: ENOXAPARIN 30 MG/0.3 ML SYR SC SCH (17:00)
[2021-01-03 17:18] LABS: ANION GAP 13.7 mmol/L (8-16); BLOOD UREA NITROGEN 20 mg/dL (7-26); BUN/CREATININE RATIO 30 (6-25); CALCIUM 7.9 mg/dL (8.4-10.2); CARBON DIOXIDE 19 mmol/L (22-29); CHLORIDE 109 mmol/L (98-107); CREATININE, SERUM 0.67 mg/dL (0.57-1.11); EST GLOMERULAR FILTRATION RATE > 60 ML/MIN (60-); GLUCOSE 168 mg/dL (74-118); POTASSIUM 3.7 mmol/L (3.5-5.1); SODIUM 138 mmol/L (136-145)
[2021-01-03] MEDS: SODIUM CHLORIDE 0.9% 1000ML 1,000 ML IV SCH (20:45)
[2021-01-04] VITALS (8 sets, daily range): BP systolic 122–183; BP diastolic 53–76
[2021-01-04] MEDS: METRONIDAZOLE 500MG/NS 100ML 100 ML IV SCH ×5 (00:16→23:25)
[2021-01-04] MEDS: PIPERACILLIN/TAZOBAC 3.375 GM in SODIUM CHLORIDE 0.9% 50ML 50 ML IV SCH ×4 (00:16→17:00)
[2021-01-04 06:09] LABS: BASOPHILS % 0.3 % (0.0-1.0); EOSINOPHILS # (AUTO) 0.5 (0.0-0.4); EOSINOPHILS % 4.4 % (0.0-6.0); HEMATOCRIT 32.3 % (34.2-44.1); HEMOGLOBIN 10.3 g/dL (12.0-16.0); LYMPHOCYTES # (AUTO) 1.3 (1.0-3.2); LYMPHOCYTES % 10.6 % (18.0-39.1); MEAN CORPUSCULAR HEMOGLOBIN 30.1 pg (28-32); MEAN CORPUSCULAR HGB CONC 31.9 g/dL (31-35); MEAN CORPUSCULAR VOLUME 94.4 fL (81-99); MONOCYTES # (AUTO) 0.5 (0.2-0.8); MONOCYTES % 3.8 % (4.4-11.3); NEUTROPHILS # (AUTO) 9.1 (2.1-6.9); NEUTROPHILS % 77.6 % (38.7-80.0); PLATELET COUNT 249 x10e3/uL (140-360); RED BLOOD COUNT 3.42 x10e6/uL (3.6-5.1); RED CELL DISTRIBUTION WIDTH 14.8 % (11.7-14.4)
[2021-01-04] MEDS: LEVOTHYROXINE SODIUM 88 MCG TAB PO SCH (06:09)
[2021-01-04 06:31] LABS: ALANINE AMINOTRANSFERASE 26 IU/L (0-55); ALBUMIN/GLOBULIN RATIO 0.6 (0.8-2.0); ALKALINE PHOSPHATASE 164 IU/L (40-150); ANION GAP 12.2 mmol/L (8-16); BLOOD UREA NITROGEN 17 mg/dL (7-26); BUN/CREATININE RATIO 29 (6-25); CALCIUM 7.7 mg/dL (8.4-10.2); CARBON DIOXIDE 20 mmol/L (22-29); CHLORIDE 110 mmol/L (98-107); CREATININE, SERUM 0.58 mg/dL (0.57-1.11); EST GLOMERULAR FILTRATION RATE > 60 ML/MIN (60-); GLUCOSE 85 mg/dL (74-118); POTASSIUM 3.2 mmol/L (3.5-5.1); SODIUM 139 mmol/L (136-145)
[2021-01-04] MEDS: INSULIN REGULAR, HUMAN 100 UNIT/1 ML 3ML VIAL SQ SCH ×4 (07:30→20:28)
[2021-01-04] MEDS: FAMOTIDINE 20 MG/2 ML VIAL IV SCH (08:43)
[2021-01-04] MEDS: VALSARTAN 160 MG TAB PO SCH (08:47)
[2021-01-04] MEDS: METOPROLOL TARTRATE 50 MG TAB PO SCH ×2 (08:47→16:57)
[2021-01-04] MEDS: CHOLESTYRAMINE 4 GM PACKET PO SCH ×3 (08:48→20:19)
[2021-01-04] MEDS: NIFEDIPINE CR 30 MG TAB PO SCH (08:48)
[2021-01-04] MEDS: SODIUM CHLORIDE 0.9% 1000ML 1,000 ML IV SCH ×2 (10:05→22:09)
[2021-01-04] MEDS ORDERED: POTASSIUM CHLORIDE 10MEQ EA PO NR (14:15)
[2021-01-04] MEDS: ENOXAPARIN 30 MG/0.3 ML SYR SC SCH (16:59)
[2021-01-05] VITALS (10 sets, daily range): BP systolic 112–175; BP diastolic 53–76
[2021-01-05] MEDS: ACETAMINOPHEN 325 MG TAB PO PRN (01:58)
[2021-01-05] MEDS: METRONIDAZOLE 500MG/NS 100ML 100 ML IV SCH ×3 (05:16→17:58)
[2021-01-05] MEDS: PIPERACILLIN/TAZOBAC 3.375 GM in SODIUM CHLORIDE 0.9% 50ML 50 ML IV SCH ×5 (06:01→17:00)
[2021-01-05] MEDS: LEVOTHYROXINE SODIUM 88 MCG TAB PO SCH (06:01)
[2021-01-05] MEDS: INSULIN REGULAR, HUMAN 100 UNIT/1 ML 3ML VIAL SQ SCH ×4 (07:30→21:00)
[2021-01-05] MEDS: FAMOTIDINE 20 MG/2 ML VIAL IV SCH (08:11)
[2021-01-05] MEDS: CHOLESTYRAMINE 4 GM PACKET PO SCH ×3 (08:25→21:33)
[2021-01-05] MEDS: VALSARTAN 160 MG TAB PO SCH (08:32)
[2021-01-05] MEDS: METOPROLOL TARTRATE 50 MG TAB PO SCH ×2 (08:33→17:00)
[2021-01-05] MEDS: NIFEDIPINE CR 30 MG TAB PO SCH (08:33)
[2021-01-05] MEDS: SODIUM CHLORIDE 0.9% 1000ML 1,000 ML IV SCH (15:05)
[2021-01-05] MEDS: ENOXAPARIN 30 MG/0.3 ML SYR SC SCH (17:00)
[2021-01-06] VITALS (7 sets, daily range): BP systolic 118–170; BP diastolic 59–75
[2021-01-06] MEDS: PIPERACILLIN/TAZOBAC 3.375 GM in SODIUM CHLORIDE 0.9% 50ML 50 ML IV SCH ×5 (00:35→23:47)
[2021-01-06] MEDS: METRONIDAZOLE 500MG/NS 100ML 100 ML IV SCH ×5 (00:35→23:45)
[2021-01-06 05:07] LABS: BASOPHILS % 0.1 % (0.0-1.0); EOSINOPHILS # (AUTO) 0.5 (0.0-0.4); EOSINOPHILS % 4.2 % (0.0-6.0); HEMOGLOBIN 9.7 g/dL (12.0-16.0); LYMPHOCYTES # (AUTO) 1.4 (1.0-3.2); LYMPHOCYTES % 12.9 % (18.0-39.1); MEAN CORPUSCULAR HEMOGLOBIN 29.8 pg (28-32); MEAN CORPUSCULAR HGB CONC 32.3 g/dL (31-35); MEAN CORPUSCULAR VOLUME 92.3 fL (81-99); MONOCYTES # (AUTO) 0.4 (0.2-0.8); MONOCYTES % 3.6 % (4.4-11.3); NEUTROPHILS # (AUTO) 8.3 (2.1-6.9); NEUTROPHILS % 77.6 % (38.7-80.0); PLATELET COUNT 327 x10e3/uL (140-360); RED BLOOD COUNT 3.25 x10e6/uL (3.6-5.1); RED CELL DISTRIBUTION WIDTH 14.5 % (11.7-14.4)
[2021-01-06 06:03] LABS: ALANINE AMINOTRANSFERASE 20 IU/L (0-55); ALBUMIN 1.8 g/dL (3.5-5.0); ALBUMIN/GLOBULIN RATIO 0.6 (0.8-2.0); ALKALINE PHOSPHATASE 112 IU/L (40-150); ANION GAP 10.3 mmol/L (8-16); BLOOD UREA NITROGEN 9 mg/dL (7-26); BUN/CREATININE RATIO 17 (6-25); CALCIUM 7.4 mg/dL (8.4-10.2); CARBON DIOXIDE 20 mmol/L (22-29); CHLORIDE 107 mmol/L (98-107); CREATININE, SERUM 0.53 mg/dL (0.57-1.11); EST GLOMERULAR FILTRATION RATE > 60 ML/MIN (60-); GLUCOSE 112 mg/dL (74-118); POTASSIUM 3.3 mmol/L (3.5-5.1); SODIUM 134 mmol/L (136-145)
[2021-01-06] MEDS: LEVOTHYROXINE SODIUM 88 MCG TAB PO SCH (06:42)
[2021-01-06] MEDS: INSULIN REGULAR, HUMAN 100 UNIT/1 ML 3ML VIAL SQ SCH ×4 (07:30→21:00)
[2021-01-06] MEDS: MORPHINE SULFATE INJ 2 MG/ML SYR IV PRN (09:18)
[2021-01-06] MEDS: METOPROLOL TARTRATE 50 MG TAB PO SCH ×2 (09:28→17:00)
[2021-01-06] MEDS: NIFEDIPINE CR 30 MG TAB PO SCH (09:28)
[2021-01-06] MEDS: CHOLESTYRAMINE 4 GM PACKET PO SCH ×3 (09:28→21:00)
[2021-01-06] MEDS: FAMOTIDINE 20 MG/2 ML VIAL IV SCH (09:29)
[2021-01-06] MEDS: VALSARTAN 160 MG TAB PO SCH (09:29)
[2021-01-06] MEDS ORDERED: POTASSIUM CHLORIDE 10MEQ EA PO ONE (15:15)
[2021-01-06] MEDS: ENOXAPARIN 30 MG/0.3 ML SYR SC SCH (17:24)
[2021-01-07] VITALS (8 sets, daily range): BP systolic 133–176; BP diastolic 59–75
[2021-01-07] MEDS: HYDRALAZINE HCL 20 MG/ML VIAL IV PRN (01:15)
[2021-01-07] MEDS: LEVOTHYROXINE SODIUM 88 MCG TAB PO SCH (05:44)
[2021-01-07] MEDS: PIPERACILLIN/TAZOBAC 3.375 GM in SODIUM CHLORIDE 0.9% 50ML 50 ML IV SCH ×3 (05:44→18:10)
[2021-01-07] MEDS: METRONIDAZOLE 500MG/NS 100ML 100 ML IV SCH ×3 (05:44→18:10)
[2021-01-07 06:02] LABS: ANION GAP 12.7 mmol/L (8-16); BLOOD UREA NITROGEN 6 mg/dL (7-26); BUN/CREATININE RATIO 11 (6-25); CALCIUM 7.9 mg/dL (8.4-10.2); CARBON DIOXIDE 19 mmol/L (22-29); CHLORIDE 108 mmol/L (98-107); CREATININE, SERUM 0.54 mg/dL (0.57-1.11); EST GLOMERULAR FILTRATION RATE > 60 ML/MIN (60-); GLUCOSE 95 mg/dL (74-118); POTASSIUM 3.7 mmol/L (3.5-5.1); SODIUM 136 mmol/L (136-145)
[2021-01-07] MEDS: INSULIN REGULAR, HUMAN 100 UNIT/1 ML 3ML VIAL SQ SCH ×4 (07:30→20:46)
[2021-01-07] MEDS: FAMOTIDINE 20 MG/2 ML VIAL IV SCH (08:24)
[2021-01-07] MEDS: METOPROLOL TARTRATE 50 MG TAB PO SCH ×2 (08:25→18:09)
[2021-01-07] MEDS: NIFEDIPINE CR 30 MG TAB PO SCH (08:25)
[2021-01-07] MEDS: VALSARTAN 160 MG TAB PO SCH (08:25)
[2021-01-07] MEDS: CHOLESTYRAMINE 4 GM PACKET PO SCH ×3 (08:26→20:49)
[2021-01-07] MEDS ORDERED: FUROSEMIDE INJ 10 MG/ML 2 ML VIAL IV ONE ×2 (15:00→18:15)
[2021-01-07] MEDS: ENOXAPARIN 30 MG/0.3 ML SYR SC SCH (18:10)
[2021-01-08] VITALS (7 sets, daily range): BP systolic 130–155; BP diastolic 56–64
[2021-01-08] MEDS: ACETAMINOPHEN 325 MG TAB PO PRN ×2 (01:39→22:05)
[2021-01-08] MEDS: PIPERACILLIN/TAZOBAC 3.375 GM in SODIUM CHLORIDE 0.9% 50ML 50 ML IV SCH ×5 (05:37→19:24)
[2021-01-08] MEDS: METRONIDAZOLE 500MG/NS 100ML 100 ML IV SCH ×5 (05:37→23:45)
[2021-01-08] MEDS: LEVOTHYROXINE SODIUM 88 MCG TAB PO SCH (05:37)
[2021-01-08] MEDS: FAMOTIDINE 20 MG/2 ML VIAL IV SCH (08:31)
[2021-01-08] MEDS: VALSARTAN 160 MG TAB PO SCH (08:32)
[2021-01-08] MEDS: NIFEDIPINE CR 30 MG TAB PO SCH (08:33)
[2021-01-08] MEDS: METOPROLOL TARTRATE 50 MG TAB PO SCH ×2 (08:33→16:27)
[2021-01-08] MEDS: CHOLESTYRAMINE 4 GM PACKET PO SCH ×3 (08:33→21:48)
[2021-01-08] MEDS: INSULIN REGULAR, HUMAN 100 UNIT/1 ML 3ML VIAL SQ SCH ×4 (09:24→21:00)
[2021-01-08] MEDS ORDERED: FUROSEMIDE INJ 10 MG/ML 4 ML VIAL IV ONE (15:00)
[2021-01-08] MEDS: ENOXAPARIN 30 MG/0.3 ML SYR SC SCH (16:27)
[2021-01-09] VITALS: BP 144/62
[2021-01-09] MEDS: PIPERACILLIN/TAZOBAC 3.375 GM in SODIUM CHLORIDE 0.9% 50ML 50 ML IV SCH ×2 (00:55→06:01)
[2021-01-09 04:00] VITALS: BP 139/65
[2021-01-09] MEDS: METRONIDAZOLE 500MG/NS 100ML 100 ML IV SCH ×2 (05:06→13:05)
[2021-01-09] MEDS: LEVOTHYROXINE SODIUM 88 MCG TAB PO SCH (06:01)
[2021-01-09] MEDS: INSULIN REGULAR, HUMAN 100 UNIT/1 ML 3ML VIAL SQ SCH ×2 (07:30→11:30)
[2021-01-09 08:15] VITALS: BP 155/71
[2021-01-09 08:39] VITALS: BP 155/71
[2021-01-09] MEDS: CHOLESTYRAMINE 4 GM PACKET PO SCH (09:00)
[2021-01-09] MEDS: FAMOTIDINE 20 MG/2 ML VIAL IV SCH (10:24)
[2021-01-09] MEDS: VALSARTAN 160 MG TAB PO SCH (10:35)
[2021-01-09] MEDS: METOPROLOL TARTRATE 50 MG TAB PO SCH (10:38)
[2021-01-09] MEDS: NIFEDIPINE CR 30 MG TAB PO SCH (10:38)
[2021-01-09 11:51] VITALS: BP 166/67
[2021-01-09 16:20] VITALS: BP 129/74
== END 2021-01-09 16:38 | DRG 871 ==
LOC: ER 10:44 → ERHOLD 11:59 → MED/SURG3 17:29
PROVIDERS: ADMIT Internal Medicine; ATTEND Internal Medicine
PROC: 0FJB8ZZ Inspection of Hepatobiliary Duct, Via Natural or Artificial Opening Endoscopic (ICD-10-PCS; principal; 2021-01-02)
PROC: 0F798DZ Dilation of Common Bile Duct with Intraluminal Device, Via Natural or Artificial Opening Endoscopic (ICD-10-PCS; 2021-01-02)
PROC: BF101ZZ Fluoroscopy of Bile Ducts using Low Osmolar Contrast (ICD-10-PCS; 2021-01-02)
DX: A41.9 Sepsis, unspecified organism (principal); G93.41 Metabolic encephalopathy; K81.0 Acute cholecystitis; K83.09 Other cholangitis; I10 Essential (primary) hypertension; A41.51 Sepsis due to Escherichia coli [E. coli]; Z91.81 History of falling; E03.9 Hypothyroidism, unspecified; F03.90 Unspecified dementia, unspecified severity, without behavioral disturbance, psychotic disturbance, mood disturbance, and anxiety; E11.9 Type 2 diabetes mellitus without complications; E87.6 Hypokalemia; Z20.822 Contact with and (suspected) exposure to COVID-19
CPT/HCPCS: 36415; 43260; 70450; 71045; 74177; 74181; 74328; 76705; 80048; 80053; 81001; 82150; 82550; 82553; 82948; 83605; 83690; 83735; 83880; 84443; 84484; 85025; 85610; 85730; 87040; 87071; 87086; 87186; 87205; 93005; 96361; 97139; 99285; J0360; J1100; J1610; J1650; J1817; J1940; J1956; J2270; J2405; J2543; J7030; J7050; Q9967; U0002

== ENCOUNTER 2021-01-28 16:37 | Observation (INO) | payer MEDICARE ==
[~2021-01-28] VITALS: Ht 304.8 cm; Wt 58.6 kg
[2021-01-28 17:31] LABS: BASOPHILS # (AUTO) 0.1 (0.0-0.1); BASOPHILS % 0.7 % (0.0-1.0); EOSINOPHILS # (AUTO) 0.2 (0.0-0.4); EOSINOPHILS % 1.4 % (0.0-6.0); HEMATOCRIT 39.4 % (34.2-44.1); HEMOGLOBIN 12.3 g/dL (12.0-16.0); LYMPHOCYTES # (AUTO) 1.5 (1.0-3.2); MEAN CORPUSCULAR HEMOGLOBIN 29.9 pg (28-32); MEAN CORPUSCULAR HGB CONC 31.2 g/dL (31-35); MEAN CORPUSCULAR VOLUME 95.6 fL (81-99); MONOCYTES # (AUTO) 0.4 (0.2-0.8); MONOCYTES % 3.7 % (4.4-11.3); NEUTROPHILS # (AUTO) 8.6 (2.1-6.9); NEUTROPHILS % 79.6 % (38.7-80.0); PLATELET COUNT 320 x10e3/uL (140-360); RED BLOOD COUNT 4.12 x10e6/uL (3.6-5.1); RED CELL DISTRIBUTION WIDTH 15.3 % (11.7-14.4)
[2021-01-28 17:47] LABS: ALBUMIN 3.4 g/dL (3.5-5.0); ALBUMIN/GLOBULIN RATIO 0.8 (0.8-2.0); ALKALINE PHOSPHATASE 69 IU/L (40-150); ANION GAP 15.5 mmol/L (8-16); BLOOD UREA NITROGEN 19 mg/dL (7-26); BUN/CREATININE RATIO 28 (6-25); CALCIUM 9.5 mg/dL (8.4-10.2); CARBON DIOXIDE 24 mmol/L (22-29); CHLORIDE 105 mmol/L (98-107); CREATINE KINASE 12 IU/L (29-168); CREATININE, SERUM 0.68 mg/dL (0.57-1.11); EST GLOMERULAR FILTRATION RATE 82 ML/MIN (60-); GLUCOSE 203 mg/dL (74-118); POTASSIUM 4.5 mmol/L (3.5-5.1); SODIUM 140 mmol/L (136-145)
[2021-01-28 17:49] LABS: ALANINE AMINOTRANSFERASE < 6 IU/L (0-55)
[2021-01-28 19:17] LABS: INR 0.88; PROTHROMBIN TIME 12.5 seconds (11.9-14.5)
[2021-01-28 19:18] LABS: PARTIAL THROMBOPLASTIN TIME 35.4 seconds (23.8-35.5)
[2021-01-28] MEDS ORDERED: SILVER NITRATE SWABS ONE (19:37)
[2021-01-28] MEDS ORDERED: LIDOCAINE HCL 1% LOCAL INJ 20 ML VIAL ONE (19:41)
[2021-01-28] MEDS ORDERED: LIDOCAINE HCL 1% LOCAL INJ 20 ML VIAL INJ ONE (20:00)
[2021-01-28 20:08] LABS: CLARITY,URINE SL CLOUDY (CLEAR); COLOR,URINE YELLOW (YELLOW); KETONES,URINE NEGATIVE (NEGATIVE); LEUKOCYTE ESTERASE ,URINE SMALL (NEGATIVE); NITRITE,URINE NEGATIVE (NEGATIVE); PROTEIN,URINE DIPSTICK NEGATIVE (NEGATIVE); URINE UROBILINOGEN 0.2 mg/dL (0.2 - 1)
[2021-01-28 20:19] LABS: BACTERIA,URINE MODERATE /HPF; EPITHELIAL CELLS,URINE MODERATE /LPF; RENAL EPITHELIAL CELLS,URINE FEW
[2021-01-28] MEDS ORDERED: DEXTROSE 50% SYRINGE 50 ML IV PRN (20:45)
[2021-01-28] MEDS ORDERED: ONDANSETRON HCL INJ 2MG/ML 2ML 2 MG/ML VIAL IV PRN (20:45)
[2021-01-28] MEDS ORDERED: CEFTRIAXONE 1 GM in SODIUM CHLORIDE 0.9% 50ML 50 ML IV SCH (20:45)
[2021-01-28] MEDS ORDERED: INSULIN REGULAR, HUMAN 100 UNIT/1 ML 3ML VIAL SQ SCH (21:00)
[2021-01-28 21:50] VITALS: BP 147/83
[2021-01-28 21:56] VITALS: BP 147/83
[2021-01-28] MEDS ORDERED: PROMETHAZINE 25MG/SOD CHL 0.9% 50 ML IV ONE (21:58)
[2021-01-28] MEDS ORDERED: SODIUM CHLORIDE 0.9% 1000ML 1,000 ML ONE (21:58)
[2021-01-28] MEDS: PROMETHAZINE 12.5MG/ NACL 0.9% 12.5 MG/50 ML BAG IV PRN (22:22)
[2021-01-28] MEDS ORDERED: QUESTRAN PACKET4 GM PO (22:47)
[2021-01-28] MEDS ORDERED: FAMOTIDINE20 MG PO (22:47)
[2021-01-28] MEDS ORDERED: TYLENOL325 MG PO (22:47)
[2021-01-28] MEDS ORDERED: IPRATROPIU0.2 MG/1 M INH (22:47)
[2021-01-28] MEDS ORDERED: LOSARTAN POTAS100 MG PO (22:51)
[2021-01-28] MEDS ORDERED: ONDANSETRON ODT4 MG PO (22:51)
[2021-01-28] MEDS ORDERED: ENOXAPARIN30 MG/0.3 INJ (22:51)
[2021-01-28] MEDS ORDERED: FLAGYL500 MG PO (22:53)
[2021-01-28] MEDS ORDERED: METRONIDAZOLE500 MG PO (22:53)
[2021-01-28 23:00] VITALS: BP 146/81
[2021-01-29] VITALS (8 sets, daily range): BP systolic 152–182; BP diastolic 71–77
[2021-01-29] MEDS: PROMETHAZINE 12.5MG/ NACL 0.9% 12.5 MG/50 ML BAG IV PRN (03:08)
[2021-01-29 05:56] LABS: BASOPHILS # (AUTO) 0.1 (0.0-0.1); EOSINOPHILS # (AUTO) 0.3 (0.0-0.4); EOSINOPHILS % 3.3 % (0.0-6.0); HEMATOCRIT 35.4 % (34.2-44.1); HEMOGLOBIN 11.2 g/dL (12.0-16.0); LYMPHOCYTES # (AUTO) 2.4 (1.0-3.2); LYMPHOCYTES % 31.5 % (18.0-39.1); MEAN CORPUSCULAR HEMOGLOBIN 29.8 pg (28-32); MEAN CORPUSCULAR HGB CONC 31.6 g/dL (31-35); MEAN CORPUSCULAR VOLUME 94.1 fL (81-99); MONOCYTES # (AUTO) 0.6 (0.2-0.8); MONOCYTES % 7.3 % (4.4-11.3); NEUTROPHILS # (AUTO) 4.3 (2.1-6.9); NEUTROPHILS % 56.5 % (38.7-80.0); PLATELET COUNT 237 x10e3/uL (140-360); RED BLOOD COUNT 3.76 x10e6/uL (3.6-5.1); RED CELL DISTRIBUTION WIDTH 15.2 % (11.7-14.4)
[2021-01-29 06:32] LABS: ALBUMIN/GLOBULIN RATIO 0.8 (0.8-2.0); ALKALINE PHOSPHATASE 59 IU/L (40-150); ANION GAP 12.1 mmol/L (8-16); BLOOD UREA NITROGEN 16 mg/dL (7-26); BUN/CREATININE RATIO 26 (6-25); CALCIUM 9.3 mg/dL (8.4-10.2); CARBON DIOXIDE 26 mmol/L (22-29); CHLORIDE 107 mmol/L (98-107); CREATININE, SERUM 0.62 mg/dL (0.57-1.11); EST GLOMERULAR FILTRATION RATE 91 ML/MIN (60-); GLUCOSE 121 mg/dL (74-118); POTASSIUM 4.1 mmol/L (3.5-5.1); SODIUM 141 mmol/L (136-145)
[2021-01-29 06:35] LABS: ALANINE AMINOTRANSFERASE < 6 IU/L (0-55)
[2021-01-29 06:59] LABS: CREATINE KINASE MB 2.5 ng/mL (0-5.0)
[2021-01-29] MEDS: INSULIN LISPRO 100 UNIT/1 ML 3ML VIAL SQ SCH ×3 (11:30→20:27)
[2021-01-29 14:35] LABS: CREATINE KINASE MB 1.8 ng/mL (0-5.0)
[2021-01-29] MEDS ORDERED: THIAMINE HCL INJ 100 MG/ML 2ML VIAL IV ONE (20:15)
[2021-01-29] MEDS ORDERED: NIFEDIPINE 10 MG CAP PO ONE (20:30)
[2021-01-29] MEDS ORDERED: METOPROLOL SUCCINATE 50 MG TAB XL PO ONE (20:30)
[2021-01-29] MEDS ORDERED: LOSARTAN POTASSIUM 100 MG TAB PO ONE (20:30)
[2021-01-29] MEDS ORDERED: CEFTRIAXONE 1 GM in SODIUM CHLORIDE 0.9% 50ML 50 ML IV ONE (20:45)
[2021-01-29] MEDS ORDERED: ACETAMINOPHEN 325 MG TAB PO PRN (20:45)
[2021-01-29 22:56] LABS: CREATINE KINASE MB 2.4 ng/mL (0-5.0)
[2021-01-30 01:20] VITALS: BP 136/67
[2021-01-30 05:31] VITALS: BP 121/75
[2021-01-30] MEDS: INSULIN LISPRO 100 UNIT/1 ML 3ML VIAL SQ SCH ×2 (07:30→11:30)
[2021-01-30 08:02] VITALS: BP 135/67
[2021-01-30 08:33] VITALS: BP 135/67
[2021-01-30] MEDS: METOPROLOL TARTRATE 50 MG TAB PO SCH ×2 (08:55→17:44)
[2021-01-30] MEDS ORDERED: LOSARTAN POTASSIUM 100 MG TAB PO SCH (09:00)
[2021-01-30] MEDS ORDERED: NIFEDIPINE CR 30 MG TAB PO SCH (09:00)
[2021-01-30 11:47] VITALS: BP 149/61
[2021-01-30 16:29] VITALS: BP 115/62
[2021-01-30] MEDS ORDERED: ONDANSETRON HCL 4 MG ORAL DISINTEGRATING TAB PO PRN (17:45)
== END 2021-01-30 18:06 | disposition home or self-care (01) ==
LOC: ER 17:38 → ERHOLD 20:41 → MED/SURG3 21:40
PROVIDERS: ADMIT Internal Medicine; ATTEND Internal Medicine
DX: R42 Dizziness and giddiness (principal); R11.2 Nausea with vomiting, unspecified; N39.0 Urinary tract infection, site not specified; H55.00 Unspecified nystagmus; I10 Essential (primary) hypertension; E11.9 Type 2 diabetes mellitus without complications; E03.9 Hypothyroidism, unspecified; E78.5 Hyperlipidemia, unspecified; R53.81 Other malaise
CPT/HCPCS: 36415 ×3; 70450; 70551; 71045; 80053 ×2; 81001; 82550 ×2; 82553 ×2; 82607; 82948 ×3; 84425; 84484 ×2; 85025 ×2; 85610; 85730; 93005; 95812; 97116 ×2; 97139 ×2; 97161; 97530; 99251; 99284; G0378 ×3; J0696 ×2; J2001; J2550 ×2; J3411; J7030

== ENCOUNTER 2022-02-18 09:21 | Emergency (ER) | payer MEDICARE, OTHER ==
[~2022-02-18] VITALS: Ht 157.5 cm; Wt 58.5 kg
[~2022-02-18 09:21] MED LIST changes: +ACETAMINOPHEN-1 EAC4 PO; +ENOXAPARIN30 MG/0.3 INJ; +FAMOTIDINE20 MG PO; +FLAGYL500 MG PO; +IPRATROPIU0.2 MG/1 M INH; +LOSARTAN POTAS100 MG PO; +METHOCARBAMOL750 MG PO; +METRONIDAZOLE500 MG PO; +ONDANSETRON ODT4 MG PO; +QUESTRAN PACKET4 GM PO; +TYLENOL325 MG PO
== END 2022-02-18 12:58 | disposition home or self-care (01) ==
LOC: ER 09:30
DX: S22.32XA Fracture of one rib, left side, initial encounter for closed fracture (principal); S00.83XA Contusion of other part of head, initial encounter; S30.0XXA Contusion of lower back and pelvis, initial encounter; W01.0XXA Fall on same level from slipping, tripping and stumbling without subsequent striking against object, initial encounter; Y93.01 Activity, walking, marching and hiking; Y92.89 Other specified places as the place of occurrence of the external cause; I10 Essential (primary) hypertension; E11.9 Type 2 diabetes mellitus without complications; E03.9 Hypothyroidism, unspecified; K21.9 Gastro-esophageal reflux disease without esophagitis; M54.9 Dorsalgia, unspecified; G89.29 Other chronic pain; Z86.73 Personal history of transient ischemic attack (TIA), and cerebral infarction without residual deficits
CPT/HCPCS: 70450; 71101; 72110; 72125; 73522; 99284

== ENCOUNTER 2024-05-18 11:37 | Emergency (ER) | payer MEDICARE ==
[~2024-05-18] VITALS: Ht 157.5 cm; Wt 58.5 kg
[2024-05-18 11:41] VITALS: PULSE 68; RESP 16; TEMP 98.1; O2SAT 97
== END 2024-05-18 14:29 | disposition home or self-care (01) ==
LOC: ER 11:46
DX: S00.83XA Contusion of other part of head, initial encounter (principal); W01.198A Fall on same level from slipping, tripping and stumbling with subsequent striking against other object, initial encounter; Y92.89 Other specified places as the place of occurrence of the external cause; I10 Essential (primary) hypertension; E11.9 Type 2 diabetes mellitus without complications; E03.9 Hypothyroidism, unspecified; K21.9 Gastro-esophageal reflux disease without esophagitis; M54.9 Dorsalgia, unspecified; G89.29 Other chronic pain
CPT/HCPCS: 70450; 72125; 72131; 99284

== ENCOUNTER 2024-08-15 19:20 | Emergency (ER) | payer MEDICARE ==
[~2024-08-15] VITALS: Ht 157.5 cm; Wt 56.2 kg
[2024-08-15 19:28] VITALS: PULSE 61; RESP 14; TEMP 97.8
[2024-08-15] MEDS: SODIUM CHLORIDE 0.9% 1000ML 1,000 ML IV STA (19:46)
[2024-08-15 19:55] LABS: BASOPHILS # (AUTO) 0.1 (0.0-0.1); BASOPHILS % 1.2 % (0.0-1.0); EOSINOPHILS # (AUTO) 0.1 (0.0-0.4); EOSINOPHILS % 1.9 % (0.0-6.0); HEMATOCRIT 44.4 % (34.2-44.1); HEMOGLOBIN 13.8 g/dL (12.0-16.0); LYMPHOCYTES % 17.3 % (18.0-39.1); MEAN CORPUSCULAR HEMOGLOBIN 32.1 pg (28-32); MEAN CORPUSCULAR HGB CONC 31.1 g/dL (31-35); MEAN CORPUSCULAR VOLUME 103.3 fL (81-99); MONOCYTES # (AUTO) 0.2 (0.2-0.8); MONOCYTES % 3.9 % (4.4-11.3); NEUTROPHILS # (AUTO) 4.3 (2.1-6.9); NEUTROPHILS % 75.2 % (38.7-80.0); PLATELET COUNT 104 x10e3/uL (140-360); RED CELL DISTRIBUTION WIDTH 14.4 % (11.7-14.4); WHITE BLOOD COUNT 5.68 x10e3/uL (4.8-10.8)
[2024-08-15 20:19] LABS: ALBUMIN/GLOBULIN RATIO 0.9 (0.8-2.0); ANION GAP 19.7 mmol/L (8-16); BILIRUBIN,TOTAL 0.5 mg/dL (0.2-1.2); CALCIUM 10.1 mg/dL (8.4-10.2); CREATININE, SERUM 3.35 mg/dL (0.57-1.11); POTASSIUM 3.7 mmol/L (3.5-5.1); TOTAL PROTEIN 8.7 g/dL (6.5-8.1)
[2024-08-15 20:25] LABS: TROPONIN I 0.062 ng/mL (0-0.300)
[2024-08-16 00:10] VITALS: BP 202/95; PULSE 61; RESP 17; TEMP 97.9; O2SAT 98
== END 2024-08-15 22:01 | disposition home or self-care (01) ==
LOC: ER 19:26
DX: R42 Dizziness and giddiness (principal); I95.9 Hypotension, unspecified; N28.9 Disorder of kidney and ureter, unspecified; I10 Essential (primary) hypertension; E11.65 Type 2 diabetes mellitus with hyperglycemia; E03.9 Hypothyroidism, unspecified; K21.9 Gastro-esophageal reflux disease without esophagitis; M54.9 Dorsalgia, unspecified; G89.29 Other chronic pain; R94.31 Abnormal electrocardiogram [ECG] [EKG]; Z86.73 Personal history of transient ischemic attack (TIA), and cerebral infarction without residual deficits
CPT/HCPCS: 36415; 70450; 71045; 80053; 82550; 83690; 83880; 84484; 85025; 93005; 99284